=== PATIENT | female | born 1955 | race Caucasian/White ===

== ENCOUNTER 2020-08-12 08:47 | Outpatient (REF) | payer MEDICARE, SELFPAY ==
[2020-08-12 10:26] LABS: Glucose Urine UA NEG (NEG); Leukocyte Esterase Urine NEG (NEG); Nitrite Urine NEG (NEG); Specific Gravity - Urine 1.025 (1.005-1.025); Urine Blood NEG (NEG); Urine Ketones NEG (NEG); Urine Protein NEG (NEG-TRACE)
[2020-08-12 10:27] LABS: Appearance Urine CLEAR; Color Urine YELLOW
== END 2020-08-12 08:48 | disposition home or self-care (01) ==
LOC: HO.LAB 08:47
PROVIDERS: PCP Internal Medicine; Visit Provider Internal Medicine
DX: R30.0 Dysuria (principal)
CPT/HCPCS: 81003; 87086

== ENCOUNTER 2020-08-14 13:34 | Outpatient (REF) | payer MEDICARE, SELFPAY ==
--- NOTE | ~2020-08-14 | XR_ITS ---
EXAMINATION: BILATERAL HIP RADIOGRAPHS CLINICAL INFORMATION: Bilateral hip pain. COMPARISON: None TECHNIQUE: 2 views of each hip. FINDINGS: RIGHT HIP: No fracture identified. No dislocation. Mild right hip degenerative change and joint space narrowing. No suspicious lesions. No significant right SI joint degenerative change. LEFT HIP: No fracture or dislocation identified. Mild left hip degenerative change and joint space narrowing. No suspicious lesions. No significant left SI joint degenerative change. XR/XR hip RT min 2V IMPRESSION: Mild bilateral hip degenerative change. No evidence of fracture or dislocation involving either hip.
--- NOTE | ~2020-08-14 | XR_ITS ---
EXAMINATION: BILATERAL HIP RADIOGRAPHS CLINICAL INFORMATION: Bilateral hip pain. COMPARISON: None TECHNIQUE: 2 views of each hip. FINDINGS: RIGHT HIP: No fracture identified. No dislocation. Mild right hip degenerative change and joint space narrowing. No suspicious lesions. No significant right SI joint degenerative change. LEFT HIP: No fracture or dislocation identified. Mild left hip degenerative change and joint space narrowing. No suspicious lesions. No significant left SI joint degenerative change. XR/XR hip LT min 2V IMPRESSION: Mild bilateral hip degenerative change. No evidence of fracture or dislocation involving either hip.
--- NOTE | ~2020-08-14 | XR_ITS ---
EXAMINATION: XR LUMBOSACRAL SPINE CLINICAL INFORMATION: Low back pain COMPARISON: Lumbar spine MRI on 08/06/2010 TECHNIQUE: Three views of the lumbosacral spine. FINDINGS: Lumbar spine maintains normal alignment. There are intervertebral disc spacers at L4-L5 and L5-S1. Vertebral body heights are maintained. There is multilevel loss of intervertebral disc space with endplate degenerative changes. There is facet arthropathy in the lower lumbar spine. There is mild atherosclerotic calcification. XR/XR lumbar spine 2-3V IMPRESSION: Appropriately positioned lower lumbar spinal hardware. Mild/moderate degenerative disease of lower lumbar spine.
[2020-08-14 16:32] LABS: MANUAL DIFF FLAG NO
[2020-08-14 16:39] LABS: Basophils Percent Auto 0.5 % (0-2); Eosinophils Absolute Auto 0.1 X10*3/uL (0.0-0.4); Eosinophils Percent Auto 1.4 % (0-4); Hematocrit 37.4 % (37-47); Hemoglobin 11.7 g/dl (12.0-16.0); Imm Gran Abs Auto 0.01 X10*3/uL (0.00-0.03); Imm Gran Pct Auto 0.2 % (0.0-0.4); Lymphocytes Absolute Auto 2.7 X10*3/uL (1.2-4.9); Lymphocytes Percent Auto 42.7 % (20-40); Mean Corpuscular HGB Conc 31.3 g/dl (31.0-35.0); Mean Corpuscular Hemoglobin 26.4 pg (27.0-33.0); Mean Corpuscular Volume 84.2 fL (80-98); Monocytes Absolute Auto 0.7 X10*3/uL (0.1-1.2); Monocytes Percent Auto 11.2 % (2-11); Neutrophils Absolute Auto 2.8 X10*3/uL (2.0-8.3); Platelet Count 102 X10*3/uL (160-400); Red Blood Count 4.44 X10*6/uL (4.20-5.50); Red Cell Distribution Width 14.4 % (11.0-16.0); White Blood Count 6.4 X10*3/uL (4.8-10.8)
[2020-08-14 17:05] LABS: Alanine Aminotransferase 35 U/L (0-31); Albumin Level 4.3 g/dL (3.5-5.0); Alkaline Phosphatase 56 U/L (39-117); Anion Gap 12 (12-20); Aspartate Amino Transferase 74 U/L (5-31); Bilirubin Total 0.6 mg/dL (0.0-1.0); Blood Urea Nitrogen 14 mg/dL (9-16); C Reactive Protein 0.29 mg/dL (< or = 0.50); Calcium 9.6 mg/dL (8.4-10.2); Carbon Dioxide 27 mmol/L (22-29); Chloride 107 mmol/L (96-108); Estimated Glomerular Filt Rate > 60; Glucose Random 81 mg/dL (60-115); Potassium 4.5 mmol/L (3.3-5.1); Sodium 141 mmol/L (135-145); Total Protein 7.4 g/dL (6.5-8.0)
[2020-08-14 17:27] LABS: Thyroid Stimulating Hormone 2.71 uIU/mL (0.32-4.0)
[2020-08-14 18:03] LABS: Erythrocyte Sedimentation Rate 11 MM/HR (0-20)
== END 2020-08-14 13:35 | disposition home or self-care (01) ==
LOC: HO.HMGCX 13:34
PROVIDERS: PCP Internal Medicine; Visit Provider Internal Medicine
DX: K76.0 Fatty (change of) liver, not elsewhere classified (principal)
CPT/HCPCS: 36415; 72100; 73502; 80053; 84443; 85025; 85652; 86140

== ENCOUNTER 2021-08-10 08:08 | Outpatient (REF) | payer MEDICARE, SELFPAY ==
[2021-08-10 09:01] LABS: MANUAL DIFF FLAG NO
[2021-08-10 09:10] LABS: Basophils Percent Auto 0.5 % (0-2); Eosinophils Absolute Auto 0.1 X10*3/uL (0.0-0.4); Eosinophils Percent Auto 1.7 % (0-4); Hematocrit 36.7 % (37.0-47.0); Hemoglobin 11.4 g/dl (12.0-16.0); Lymphocytes Absolute Auto 1.4 X10*3/uL (1.2-4.9); Lymphocytes Percent Auto 34.3 % (20-40); Mean Corpuscular HGB Conc 31.1 g/dl (31.0-35.0); Mean Corpuscular Hemoglobin 25.7 pg (27.0-33.0); Mean Corpuscular Volume 82.7 fL (80.0-98.0); Mean Platelet Volume 9.5 fL (9.4-12.3); Monocytes Absolute Auto 0.4 X10*3/uL (0.1-1.2); Monocytes Percent Auto 10.9 % (2-11); Neutrophils Absolute Auto 2.1 x10*3/uL (2.0-8.3); Neutrophils Percent Auto 52.6 % (45-73); Red Blood Count 4.44 X10*6/uL (4.20-5.50); Red Cell Distribution Width 20.5 % (11.0-16.0); White Blood Count 4.1 X10*3/uL (4.8-10.8)
[2021-08-10 09:11] LABS: Ammonia 49 umol/L (13-55)
[2021-08-10 09:17] LABS: Estimated Average Glucose 134 mg/dL; Hemoglobin A1c % 6.3 %
[2021-08-10 09:29] LABS: Platelet Count 74 X10*3/uL (160-400)
[2021-08-10 09:37] LABS: Alanine Aminotransferase 39 U/L (0-31); Alkaline Phosphatase 56 U/L (39-117); Anion Gap 12 (12-20); Aspartate Amino Transferase 54 U/L (5-31); Bilirubin Total 0.5 mg/dL (0.0-1.0); Blood Urea Nitrogen 14 mg/dL (9-16); Calcium 9.4 mg/dL (8.4-10.2); Carbon Dioxide 26 mmol/L (22-29); Chloride 109 mmol/L (96-108); Cholesterol 123 mg/dL; Estimated Glomerular Filt Rate > 60; Glucose Fasting 138 mg/dL (60-99); HDL Cholesterol 46 mg/dL; LDL Cholesterol Calculated 57 mg/dl; Potassium 4.3 mmol/L (3.3-5.1); Sodium 143 mmol/L (135-145); Triglycerides 102 mg/dL
[2021-08-10 10:01] LABS: Vitamin D 25-OH Total 25.8 ng/mL (>30)
[2021-08-10 10:09] LABS: Appearance Urine CLEAR; Color Urine YELLOW; Glucose Urine UA NEG (NEG); Leukocyte Esterase Urine NEG (NEG); Nitrite Urine NEG (NEG); PH 5.5 (5.0-8.0); Specific Gravity - Urine >= 1.030 (1.005-1.025); Urine Blood NEG (NEG); Urine Ketones 5 MG/DL (NEG); Urine Protein NEG (NEG-TRACE)
[2021-08-10 10:36] LABS: Creatinine Urine 192.28 mg/dL; Microalbum/Creatinine Ratio Ur 5.2 ug/mg cr
[2021-08-10 10:43] LABS: RBC Urine 0 /HPF (0); Squamous Epithelial Cell Urine 3+ /LPF; WBC Urine 0-2 /HPF (0-4)
== END 2021-08-10 08:09 | disposition home or self-care (01) ==
LOC: HO.HMGCLDS 08:08
PROVIDERS: Visit Provider Internal Medicine
DX: K76.0 Fatty (change of) liver, not elsewhere classified (principal); D69.6 Thrombocytopenia, unspecified; G25.81 Restless legs syndrome; E78.00 Pure hypercholesterolemia, unspecified; F41.9 Anxiety disorder, unspecified; M54.41 Lumbago with sciatica, right side
CPT/HCPCS: 36415; 80053; 80061; 81001; 82043; 82140; 82306; 83036; 84443; 85025

== ENCOUNTER → 2021-09-05 14:40 | Outpatient (BNVA) | payer MEDICARE, SELFPAY | PROVIDERS: PCP Internal Medicine; Visit Provider Internal Medicine | DX: R40.0 Somnolence (principal); G47.33 Obstructive sleep apnea (adult) (pediatric) | CPT/HCPCS: 99202 ==

== ENCOUNTER 2021-10-24 15:56 | Outpatient (REF) | payer MEDICARE, SELFPAY ==
[2021-10-24 16:48] LABS: Eosinophils Absolute Auto 0.1 X10*3/uL (0.0-0.4); Imm Gran Abs Auto 0.01 X10*3/uL (0.00-0.03); Imm Gran Pct Auto 0.2 % (0.0-0.4); PLT CLUMP 1; Red Cell Distribution Width 13.7 % (11.0-16.0); SCAN SMEAR FLAG 1
[2021-10-24 16:50] LABS: Basophils Percent Auto 0.6 % (0-2); Eosinophils Percent Auto 2.1 % (0-4); Hemoglobin 13.6 g/dl (12.0-16.0); Lymphocytes Absolute Auto 1.7 X10*3/uL (1.2-4.9); Mean Corpuscular Hemoglobin 29.8 pg (27.0-33.0); Mean Corpuscular Volume 87.5 fL (80.0-98.0); Mean Platelet Volume 9.8 fL (9.4-12.3); Monocytes Absolute Auto 0.7 X10*3/uL (0.1-1.2); Monocytes Percent Auto 14.9 % (2-11); Neutrophils Absolute Auto 2.2 x10*3/uL (2.0-8.3); Neutrophils Percent Auto 46.2 % (45-73); Red Blood Count 4.57 X10*6/uL (4.20-5.50)
[2021-10-24 16:51] LABS: Platelet Count 100 X10*3/uL (160-400); White Blood Count 4.8 X10*3/uL (4.8-10.8)
[2021-10-24 16:52] LABS: MANUAL DIFF FLAG NO
[2021-10-24 16:56] LABS: INTERNATIONAL NORM RATIO 1.1 (0.9-1.1); Prothrombin Time 12.5 SEC (10.0-13.1)
[2021-10-24 17:18] LABS: Alanine Aminotransferase 32 U/L (0-31); Albumin Level 3.9 g/dL (3.5-5.0); Alkaline Phosphatase 68 U/L (39-117); Aspartate Amino Transferase 41 U/L (5-31); Bilirubin Direct 0.3 mg/dL (0.0-0.5); Bilirubin Total 0.8 mg/dL (0.0-1.0); C Reactive Protein 0.31 mg/dL (< or = 0.50); Total Protein 6.7 g/dL (6.5-8.0)
[2021-10-24 17:31] LABS: Erythrocyte Sedimentation Rate 7 MM/HR (0-20)
[2021-10-26 15:02] LABS: Immunoglobulin A 334 mg/dL (70-320)
[2021-10-31 15:42] LABS: Endomysial IgA Antibody Negative (Negative)
[2021-11-01 05:11] LABS: Gliadin Deamidated IgG Ab 26.6 U/mL; Transglutaminase Ab IgG <1.0 U/mL; Transglutaminase IgA <1.0 U/mL
== END 2021-10-24 15:57 | disposition home or self-care (01) ==
LOC: HO.LAB 15:56
PROVIDERS: PCP Internal Medicine; Visit Provider Internal Medicine
DX: R10.84 Generalized abdominal pain (principal); R10.9 Unspecified abdominal pain
CPT/HCPCS: 36415; 80076; 82784; 85025; 85610; 85652; 86140; 86231; 86258; 86364

== ENCOUNTER 2021-11-02 15:59 | Outpatient (REF) | payer MEDICARE, SELFPAY ==
[2021-11-02 17:23] LABS: CDiff Gene PCR NEGATIVE (Negative)
[2021-11-02 18:03] LABS: Leukocytes Stool Qualitative NEGATIVE (NEGATIVE)
[2021-11-03 09:44] LABS: Campylobacter Not Detected (Not Detect.); E. coli EAEC Not Detected (Not Detect.); E. coli EPEC Not Detected (Not Detect.); E. coli ETEC Not Detected (Not Detect.); E. coli STEC Not Detected (Not Detect.); Plesiomonas shigelloides Not Detected (Not Detect.); Salmonella Not Detected (Not Detect.); Vibrio Not Detected (Not Detect.); Vibrio Cholerae Not Detected (Not Detect.); Yersinia enterocolitica Not Detected (Not Detect.)
[2021-11-03 09:45] LABS: Adenovirus F 40/41 Not Detected (Not Detect.); Astrovirus Not Detected (Not Detect.); Cryptosporidium Not Detected (Not Detect.); Cyclospora cayetanensis Not Detected (Not Detect.); Entamoeba histolytica Not Detected (Not Detect.); Giardia lamblia Not Detected (Not Detect.); Norovirus GI/GII Not Detected (Not Detect.); Rotavirus A Not Detected (Not Detect.); Sapovirus Not Detected (Not Detect.); Shigella sp./EIEC Not Detected (Not Detect.)
[2021-11-09 01:16] LABS: Calprotectin, Fecal 51 mcg/g
== END 2021-11-02 16:00 | disposition home or self-care (01) ==
LOC: HO.LNP 15:59
PROVIDERS: Visit Provider Internal Medicine
DX: R10.84 Generalized abdominal pain (principal); R19.7 Diarrhea, unspecified
CPT/HCPCS: 83993; 87493; 87507; 89055

== ENCOUNTER 2021-11-20 06:44 | Day surgery (SDC) | payer MEDICARE, SELFPAY ==
[2021-11-15 09:50] VITALS: BMI 27.4
--- NOTE | 2021-11-19 09:18 | HO.ANESPROP2 ---
Documented by User: Elizabeth Osman NP 11/19/21 09:22 HPI - Anesthesia Eval Consult details Narrative: 66yo F for Upper Endoscopy and Colonoscopy cirrhosis r/t KAUFFMAN, well compensated - follows [facility] transplant services [facility] Active Problems Active Problems: All Active Problems (Updated 11/15/21 @ 10:00 by Sosa Lopez RN) ARBEN (obstructive sleep apnea) (Acute) Somnolence, daytime (Acute) Past Medical History Medical History (Updated 11/15/21 @ 10:00 by Sosa Lopez RN) Anxiety Cirrhosis Diabetes Elevated cholesterol Emphysema of lung KAUFFMAN (nonalcoholic steatohepatitis) ARBEN (obstructive sleep apnea) Renal stones Skin cancer Somnolence, daytime Thrombocytopenia Surgical History Surgical History (Updated 11/15/21 @ 09:49 by Sosa Lopez RN) H/O colonoscopy History of back surgery History of esophagogastroduodenoscopy (EGD) Hx of appendectomy Hx of hysterectomy Social History Social History Patient Tobacco Use Status: Former Tobacco user Quit Date: 1979 Tobacco use type: Cigarette Cigarette Packs Per Day: 1 Cigarettes Per Day: 20.0 Years Smoked: 20 Smoked in Last 30 Days: No Use of substances other than those prescribed or required for medical reasons: No Are you DNR?: No Advance Directives: No Advance Directives Information Provided: Yes Meds Allergies Allergy/AdvReac Type Severity Reaction Status Date / Time penicillin V Allergy Unknown headache Verified 11/20/21 06:48 and vomiting Sulfa (Sulfonamide Allergy Unknown HEADACHE, Verified 11/20/21 06:48 Antibiotics) NAUSEA [SULFA (SULFONAMIDE ANTIBIOTICS)] Home Medications Medication Instructions Recorded Confirmed Last Taken Type metformin 500 mg tablet 1,000 mg PO BID 09/05/21 11/20/21 11/19/21 07:00 History nadolol 20 mg tablet 20 mg PO DAILY 09/05/21 11/20/21 11/20/21 03:30 History omeprazole 20 mg capsule,delayed 20 mg PO DAILY 09/05/21 11/20/21 Unknown History release ropinirole 0.5 mg tablet 1 mg PO BEDTIME 09/05/21 11/20/21 11/19/21 23:30 History sertraline 25 mg tablet 25 mg PO DAILY 09/05/21 11/20/21 11/20/21 03:30 History simvastatin 20 mg tablet 20 mg PO BEDTIME 09/05/21 11/20/21 Unknown History ferrous sulfate 325 mg (65 mg 325 mg PO DAILY 11/15/21 11/20/21 10/21/21 History iron) tablet Exam Exam Date and Time: November 19, 2021 0918 Height,Weight and Vital Signs: Height 5 ft 3 in Weight 70.307 kg Pertinent Lab Results Pertinent Lab Results: Laboratory Tests 08/10/21 10/24/21 09:00 16:23 WBC 4.8 Hgb 13.6 Hct 40.0 Plt Count 100 L D Sodium 143 Potassium 4.3 Chloride 109 H Carbon Dioxide 26 BUN 14 Creatinine 0.74 Laboratory Tests 10/24/21 10/24/21 16:23 16:23 PT 12.5 INR 1.1 Total Bilirubin 0.8 Direct Bilirubin 0.3 AST 41 H ALT 32 H Alkaline Phosphatase 68 D C-Reactive Protein 0.31 Total Protein 6.7 Albumin 3.9 Assessment and Plan Assessment Anesthesia Assessment: Chart Reviewed Documented by User: Stephanie Sherman MD 11/20/21 07:27 [facility] Past Medical History Medical History (Updated 11/15/21 @ 10:00 by Sosa Lopez RN) Anxiety Cirrhosis Diabetes Elevated cholesterol Emphysema of lung KAUFFMAN (nonalcoholic steatohepatitis) ARBEN (obstructive sleep apnea) Renal stones Skin cancer Somnolence, daytime Thrombocytopenia Family History Family history of problems with anesthesia: No Surgical History Surgical History (Updated 11/15/21 @ 09:49 by Sosa Lopez RN) H/O colonoscopy History of back surgery History of esophagogastroduodenoscopy (EGD) Hx of appendectomy Hx of hysterectomy History of Problems with Anesthesia: No Social History Social History Patient Tobacco Use Status: Former Tobacco user Quit Date: 1979 Tobacco use type: Cigarette Cigarette Packs Per Day: 1 Cigarettes Per Day: 20.0 Years Smoked: 20 Smoked in Last 30 Days: No Use of substances other than those prescribed or required for medical reasons: No Are you DNR?: No Advance Directives: No Advance Directives Information Provided: Yes Meds Allergies Allergy/AdvReac Type Severity Reaction Status Date / Time penicillin V Allergy Unknown headache Verified 11/20/21 06:48 and vomiting Sulfa (Sulfonamide Allergy Unknown HEADACHE, Verified 11/20/21 06:48 Antibiotics) NAUSEA [SULFA (SULFONAMIDE ANTIBIOTICS)] Home Medications Medication Instructions Recorded Confirmed Last Taken Type metformin 500 mg tablet 1,000 mg PO BID 09/05/21 11/20/21 11/19/21 07:00 History nadolol 20 mg tablet 20 mg PO DAILY 09/05/21 11/20/21 11/20/21 03:30 History omeprazole 20 mg capsule,delayed 20 mg PO DAILY 09/05/21 11/20/21 Unknown History release ropinirole 0.5 mg tablet 1 mg PO BEDTIME 09/05/21 11/20/21 11/19/21 23:30 History sertraline 25 mg tablet 25 mg PO DAILY 09/05/21 11/20/21 11/20/21 03:30 History simvastatin 20 mg tablet 20 mg PO BEDTIME 09/05/21 11/20/21 Unknown History ferrous sulfate 325 mg (65 mg 325 mg PO DAILY 11/15/21 11/20/21 10/21/21 History iron) tablet Exam Airway Mallampati Class: II TM Dist: >3cm Neck ROM: Full Assessment and Plan Assessment Anesthesia Assessment: Anesthesia Plan Discussed Final Anesthetic Review Family History of Problems with Anesthesia: No History of Problems with Anesthesia: No NPO: Yes ASA Class: III Final Preanesthetic Review: No Changes in Pt Med Stat, Meds/Allgs Chart Reviewed and Consent Obtained/Reviewed Patient Risk: Intermediate Procedure Risk: Low Anesthetic Plan Anesthetic Plan: MAC: Disposition: Standard PACU
[2021-11-20 07:00] VITALS: BP 125/81; PULSE 71; RESP 16; TEMP 36.6; O2SAT 98; BMI 28.3
--- NOTE | 2021-11-20 07:00 | PC.NURSE ---
Patient stated she only finished 50% of her prep due to nausea. Per her Output is clear and watery . Dr. Irwin made aware. No new orders, no need to administer enema.
[2021-11-20 07:14] LABS: Glucose, Whole Blood 144 mg/dL (60-115)
[2021-11-20] MEDS: Lactated Ringers 1,000 ML 100 ML IVCONT (07:18)
[2021-11-20 08:30] VITALS: BP 106/61; PULSE 75; RESP 16; TEMP 36.8; O2SAT 96
--- NOTE | 2021-11-20 08:38 | P.BOP_ITS ---
Brief Operative Note Date of Service: 11/20/21 Pre-op diagnosis: Diarrhea Post-op diagnosis: other (R/o Celiac disease, Portal HTN, R/O microscopic colitis) Procedure: EGD with biopsies, Colonoscopy to the cecum and TI with biopsies Surgeon: Andre Irwin Anesthesia: MAC Was an Stem Processing Machine Operator used for this Procedure?: No Estimated blood loss (mL): 3.0 Pathology: other (A. Descending duodenum B. Gastric antrum C. Terminal ileum D. Ascending colon E. Descending colon) Condition: stable Disposition: PACU
[2021-11-20 08:45] VITALS: BP 124/48; PULSE 72; RESP 16; O2SAT 96
[2021-11-20 09:00] VITALS: BP 131/77; PULSE 61; RESP 16; TEMP 36.8; O2SAT 99
--- NOTE | 2021-11-20 10:41 | OP_ITS ---
SURGEON: Andre Irwin MD INDICATIONS: The patient presents for evaluation of elevated celiac disease labs and persistent diarrhea. Full consent has been obtained from her for this, including risks of bleeding and perforation. PREOPERATIVE DIAGNOSIS: POSTOPERATIVE DIAGNOSIS: PROCEDURE PERFORMED: Esophagogastroduodenoscopy with biopsies, and colonoscopy to cecum and terminal ileum with biopsies. ESTIMATED BLOOD LOSS: COMPLICATIONS: ANESTHESIA: Monitored anesthesia care. ASSISTANTS: SPECIMENS: PREOPERATIVE DIAGNOSES: Elevated celiac disease labs and persistent diarrhea. POSTOPERATIVE DIAGNOSES: Elevated celiac disease labs and persistent diarrhea, esophageal varices, portal gastropathy, rule out celiac disease, rule out microscopic colitis, diverticulosis, and internal hemorrhoids. DESCRIPTION OF PROCEDURE: The patient was placed in the left lateral decubitus position. The Olympus video gastroscope was passed in the posterior oropharynx and upper esophagus under direct vision. The scope was passed slowly into the distal esophagus. The gastroesophageal junction appeared at 35 cm. The distal esophagus was notable for some scarring and some minimal evidence of varices, which just about completely disappeared with insufflation of air. There was no sign of any bleeding nor esophagitis. The submucosa did appear purplish. The scope entered into the stomach. There was a small hiatal hernia. The scope was advanced to the pylorus, and the duodenum was cannulated to the descending portion. The duodenum including the bulb appeared normal without mass or ulceration. Biopsies were obtained from the 2nd and 3rd portions of duodenum. The scope was withdrawn back to the stomach. The gastric antrum and body had some congested appearance consistent with probable component of gastropathy, but no erosions or ulceration. There was good peristalsis. Biopsies were obtained. The scope was retroflexed visualizing the proximal stomach carefully, which also had changes consistent with a gastropathy, but no evidence of any varices, mass, nor ulceration. The scope was straightened and withdrawn back to the esophagus. Again, were changes of the portal hypertension with some scarring from previous banding but no significant varices. There was no esophagitis. The scope was withdrawn from the patient. She was turned around for the colonoscopy. The digital rectal exam revealed no abnormalities. The Olympus video pediatric colonoscope was entered into the rectum advanced easily to the cecum. Once in the cecum, I did identify a cecal pouch with appendiceal orifice and a normal-appearing ileocecal valve. The terminal ileum was cannulated and appeared normal. Biopsies were obtained. The scope was withdrawn back in the colon. The cecal mucosa appeared quite congested most likely from the underlying portal hypertension. There was almost a cobblestoning appearance. The scope was then slowly withdrawn assessing all mucosal surfaces carefully. Preparation was excellent. The ascending colon had similar mucosal changes as seen in the cecum. Biopsies were obtained to rule out microscopic colitis. The transverse colon and descending colon appeared normal. The sigmoid colon did appear somewhat congested as well. Biopsies were obtained in the descending colon as well. I did not visualize any sign of polyps, angiodysplasias, nor any definitive colitis. There was a mild amount of sigmoid diverticulosis. In the rectum, the scope was retroflexed visualizing small internal hemorrhoids, but no other pathology. The rectal mucosa appeared normal. The scope was straightened and withdrawn from the patient. She tolerated both procedures well and was returned to the recovery area in stable condition. IMPRESSION: 1. Rule out celiac disease. 2. Portal gastropathy. 3. Hiatal hernia. 4. Minimal changes of esophageal varices. 5. Rule out microscopic colitis. 6. Edematous appearance to portions of the colon, probably from portal hypertension. PLAN: The results of the biopsies will be checked. She has been advised to continue Imodium on a p.r.n. basis and to continue to speak with her primary care physician in [place] about possibly switching from metformin to a different diabetic medication to see if that would help with her diarrhea as well. She will be seen in the spring when she returns from [place]. This has been discussed with her . She was advised to avoid all aspirin and NSAIDs long-term. She was advised to continue her omeprazole and nadolol. MD HEIDI Pantoja/HOWARD / [id number]
== END 2021-11-20 09:54 | disposition home or self-care (01) ==
PROVIDERS: PCP Internal Medicine; Visit Provider Internal Medicine
PROC: (CPT 45380; principal; 2021-11-20 07:30)
DX: R19.7 Diarrhea, unspecified (principal); R10.84 Generalized abdominal pain; K64.8 Other hemorrhoids; K57.30 Diverticulosis of large intestine without perforation or abscess without bleeding; R74.8 Abnormal levels of other serum enzymes; R89.4 Abnormal immunological findings in specimens from other organs, systems and tissues; K74.69 Other cirrhosis of liver; K29.50 Unspecified chronic gastritis without bleeding; I85.00 Esophageal varices without bleeding; K75.81 Nonalcoholic steatohepatitis (NASH); K44.9 Diaphragmatic hernia without obstruction or gangrene; K21.9 Gastro-esophageal reflux disease without esophagitis; K76.6 Portal hypertension; E78.5 Hyperlipidemia, unspecified; J43.9 Emphysema, unspecified; D69.6 Thrombocytopenia, unspecified; F41.1 Generalized anxiety disorder; Z79.84 Long term (current) use of oral hypoglycemic drugs; Z79.899 Other long term (current) drug therapy; Z88.0 Allergy status to penicillin; Z88.2 Allergy status to sulfonamides; Z85.828 Personal history of other malignant neoplasm of skin; Z87.442 Personal history of urinary calculi; Z87.891 Personal history of nicotine dependence
CPT/HCPCS: 45380; 43239; 82947; 88305; 88342; J2250

== ENCOUNTER 2022-02-12 10:28 | Outpatient (REF) | payer MEDICARE, SELFPAY ==
[2022-02-12 11:27] LABS: Hematocrit 45.9 % (37.0-47.0); Hemoglobin 15.4 g/dl (12.0-16.0); Mean Corpuscular HGB Conc 33.6 g/dl (31.0-35.0); Mean Corpuscular Hemoglobin 28.6 pg (27.0-33.0); Mean Corpuscular Volume 85.2 fL (80.0-98.0); Mean Platelet Volume 10.8 fL (9.4-12.3); Platelet Count 82 X10*3/uL (160-400); Red Blood Count 5.39 X10*6/uL (4.20-5.50); Red Cell Distribution Width 13.4 % (11.0-16.0); White Blood Count 16.8 X10*3/uL (4.8-10.8)
[2022-02-12 11:53] LABS: Alanine Aminotransferase 66 U/L (0-31); Albumin Level 3.5 g/dL (3.5-5.0); Alkaline Phosphatase 73 U/L (39-117); Anion Gap 11 (12-20); Aspartate Amino Transferase 40 U/L (5-31); Bilirubin Direct 0.5 mg/dL (0.0-0.5); Bilirubin Total 1.6 mg/dL (0.0-1.0); Blood Urea Nitrogen 20 mg/dL (9-16); Calcium 8.7 mg/dL (8.4-10.2); Carbon Dioxide 30 mmol/L (22-29); Chloride 98 mmol/L (96-108); Estimated Glomerular Filt Rate > 60; Glucose Random 247 mg/dL (60-115); Potassium 3.7 mmol/L (3.3-5.1); Sodium 135 mmol/L (135-145); Total Protein 6.4 g/dL (6.5-8.0)
[2022-02-12 12:02] LABS: Erythrocyte Sedimentation Rate 4 MM/HR (0-20)
== END 2022-02-12 10:29 | disposition home or self-care (01) ==
LOC: HO.HMGCLDS 10:28
PROVIDERS: PCP Internal Medicine; Visit Provider Internal Medicine
DX: K74.60 Unspecified cirrhosis of liver (principal)
CPT/HCPCS: 36415; 80048; 80076; 85027; 85652

== ENCOUNTER 2022-08-13 09:17 | Outpatient (REF) | payer MEDICARE, SELFPAY ==
[2022-08-13 11:29] LABS: MANUAL DIFF FLAG NO
[2022-08-13 11:35] LABS: Appearance Urine Clear; Color Urine Yellow; Glucose Urine UA >=1000 mg/dL (Negative); Leukocyte Esterase Urine Negative (Negative); Nitrite Urine Negative (Negative); PH 5.5 (5.0-9.0); Specific Gravity - Urine >= 1.030 (1.005-1.025); UMIC TRIGGER UA YES; Urine Blood Negative (Negative); Urine Ketones Negative (Negative); Urine Protein Negative (Neg-Trace)
[2022-08-13 11:40] LABS: Bacteria Urine None Seen (None Seen); Hyaline Casts Urine 0-2 /LPF (0-2); RBC Urine 0-2 /HPF (0-2); WBC Urine 0-5 /HPF (0-5)
[2022-08-13 11:41] LABS: Estimated Average Glucose 306 mg/dL; Hemoglobin A1c % 12.3 %
[2022-08-13 11:47] LABS: Basophils Percent Auto 0.3 % (0-2); Eosinophils Absolute Auto 0.1 X10*3/uL (0.0-0.4); Eosinophils Percent Auto 2.4 % (0-4); Hematocrit 30.3 % (37.0-47.0); Hemoglobin 8.8 g/dl (12.0-16.0); Lymphocytes Absolute Auto 1.3 X10*3/uL (1.2-4.9); Lymphocytes Percent Auto 34.4 % (20-40); Mean Corpuscular Hemoglobin 19.6 pg (27.0-33.0); Mean Corpuscular Volume 67.5 fL (80.0-98.0); Mean Platelet Volume 9.9 fL (9.4-12.3); Monocytes Absolute Auto 0.4 X10*3/uL (0.1-1.2); Neutrophils Absolute Auto 1.9 x10*3/uL (2.0-8.3); Neutrophils Percent Auto 51.9 % (45-73); Red Blood Count 4.49 X10*6/uL (4.20-5.50); Red Cell Distribution Width 15.8 % (11.0-16.0)
[2022-08-13 11:49] LABS: Platelet Count 92 X10*3/uL (160-400); White Blood Count 3.7 X10*3/uL (4.8-10.8)
[2022-08-13 12:25] LABS: Alanine Aminotransferase 25 U/L (0-31); Alkaline Phosphatase 73 U/L (39-117); Anion Gap 14 (12-20); Aspartate Amino Transferase 26 U/L (5-31); Bilirubin Total 0.6 mg/dL (0.0-1.0); Blood Urea Nitrogen 12 mg/dL (9-16); Calcium 9.8 mg/dL (8.4-10.2); Carbon Dioxide 25 mmol/L (22-29); Chloride 103 mmol/L (96-108); Cholesterol 142 mg/dL; Estimated Glomerular Filt Rate > 60; Glucose Fasting 330 mg/dL (60-99); HDL Cholesterol 49 mg/dL; LDL Cholesterol Calculated 76 mg/dl; Potassium 4.1 mmol/L (3.3-5.1); Sodium 138 mmol/L (135-145); Total Protein 6.8 g/dL (6.5-8.0); Triglycerides 89 mg/dL
[2022-08-13 12:28] LABS: Thyroid Stimulating Hormone 2.25 uIU/mL (0.32-4.0); Vitamin D 25-OH Total 25.2 ng/mL (>30)
[2022-08-13 12:45] LABS: Creatinine Urine 86.91 mg/dL; Microalbumin Urine < 5.0 mg/L
== END 2022-08-13 09:18 | disposition home or self-care (01) ==
LOC: HO.HMGCLDS 09:17
PROVIDERS: PCP Internal Medicine; Visit Provider Internal Medicine
DX: Z13.89 Encounter for screening for other disorder (principal)
CPT/HCPCS: 36415; 80053; 80061; 81001; 82043; 82306; 83036; 84443; 85025

== ENCOUNTER 2022-08-13 14:24 | Emergency (ER) | payer MEDICARE, SELFPAY ==
--- NOTE | ~2022-08-13 | CT_ITS ---
EXAMINATION: CTA CHEST PE STUDY, CT ABDOMEN AND PELVIS CLINICAL INFORMATION: SOB, palpitations, hx clot COMPARISON: 08/14/2010 CT scan TECHNIQUE: Prior to contrast administration, noncontrast localization images were obtained. After the administration of 65 mL of Omnipaque nonionic IV contrast, contiguous thin slice helical images were obtained through the thorax. Following this the examination was continued through the abdomen and then pelvis. Reformatted MIP images in the coronal and sagittal planes as well as thin slice reformatted images of coronal and sagittal planes were obtained at the acquisition workstation. This CT examination was performed using dose optimization techniques as appropriate, variously including the following: *Automated exposure control *Adjustment of mA and/or kV according to patient size (this includes techniques or standardized protocols for targeted exams where dose is matched to indication/reason for exam; i.e. extremities or head) *Use of iterative reconstruction technique DLP: 738 mGy-cm. FINDINGS: CHEST: The bolus timing on this study was acceptable for visualization of the pulmonary arterial tree. There are no intraluminal pulmonary arterial filling defects present to suggest pulmonary embolism. Calcified granuloma in the posterior left lower lobe incidentally noted. Minimal dependent atelectasis. No abnormal pulmonary nodules or masses are appreciated. No significant hilar or mediastinal adenopathy. There is no evidence of pleural effusion or pneumothorax. The heart is normal in size. No evidence of ventricular septal bowing or right heart strain. The vascular calcification in aorta. Small hiatal hernia. There is no pericardial effusion or pericardial thickening. ABDOMEN/PELVIS: Liver, Gallbladder and Biliary Tree: Slight nodular contour to the liver suggesting underlying diffuse hepatocellular disease. There are subcentimeter hypoattenuations seen more so in the right lobe of the liver too small to characterize further on the CT scan. No biliary ductal dilatation. The gallbladder is distended. Nonspecific pericholecystic fluid is seen no radiopaque gallstones Pancreas: Unremarkable. Spleen: Enlarged measuring 13.5 cm in length Adrenal Glands: Unremarkable. Kidneys and Ureters: The kidneys are normal in size, shape, and attenuation. No hydronephrosis, hydroureter, or calculi seen. No perinephric stranding. Bladder: Decompressed Gastrointestinal Tract: Scattered colonic diverticulosis but no colonic wall thickening or pericolonic inflammatory change to suggest diverticulitis. Visualized small bowel grossly unremarkable. Nonspecific stranding and edema within the right lower quadrant mesentery of uncertain etiology. Abdominal Wall: No significant hernia is appreciated. Lymphovascular Structures: Vascular calcification within the aorta iliac system. There is mild stranding to the celiac axis fat of uncertain etiology or significance. Small celiac nodes are seen but no bulky adenopathy Pelvic Viscera: Presumably surgically absent Osseous Structures: Multilevel degenerative changes in the spine. Postoperative changes in the lower lumbar spine as well CT/CT abdomen pelvis w IV con IMPRESSION: 1. No evidence for pulmonary emboli. No focal airspace disease. 2. Nodular contour to the liver suggesting underlying diffuse hepatocellular disease. There are a few subcentimeter hypoattenuations seen in the right lobe of the liver too small to characterize further on the CT scan. Correlation with nonemergent dynamic liver MRI would be recommended in this setting 3. There is nonspecific stranding to the celiac axis fat of uncertain etiology or significance. There are small celiac axis nodes but no bulky adenopathy. Clinical correlation will be needed. 4. The gallbladder is distended with nonspecific pericholecystic fluid. No radiopaque gallstones are seen. VTE: Negative
--- NOTE | 2022-08-13 14:56 | ED.GENADULT ---
HPI - General Adult General Chief complaint: General Medical Stated complaint: Sent By PCP Issues w/Sugar Time Seen by Provider: 08/13/22 18:29 Source: patient and family Mode of arrival: ambulatory History of Present Illness HPI narrative: 67-year-old female with history of diabetes and liver cirrhosis secondary to KAUFFMAN and denies ever any alcohol use, currently followed at [facility] in [place], not currently on anticoagulation but reports that she has had a recent stent on anticoagulation for a clot in her liver. All records are at [facility] and patient has been unable to access any of the findings. Patient also states that she had a bout of cholecystitis while down in [facility] emergency room a in March and at that time she was treated in a conservative manner and as per the patient her doctors at [facility] caution against any surgical intervention. Patient reports chronic nausea as well as chronic abdominal discomfort but also reports some chest heaviness and states that she has been having ongoing dark stool for approximately 1 week and has started iron supplementation within the past week but otherwise has been eating and drinking, denies any vomiting and denies any diarrhea. She did also recently complete a course of antibiotics for a urinary tract infection. Patient reports she has been experiencing fatigue, shortness of breath, palpitations. Related Data Home Medications Medication Instructions Recorded Confirmed ascorbic acid (vitamin C) 500 mg 500 mg PO DAILY 08/13/22 08/13/22 tablet (Vitamin C) estradiol 0.01% (0.1 mg/gram) 1 appl vaginal BEDTIME 08/13/22 08/13/22 vaginal cream ferrous sulfate 324 mg (65 mg 324 mg PO DAILY 08/13/22 08/13/22 iron) tablet,delayed release furosemide 20 mg tablet 20 mg PO DAILY 08/13/22 08/13/22 hydroxyzine HCl 25 mg tablet 25 mg PO BEDTIME 08/13/22 08/13/22 metformin 500 mg tablet,extended 500 mg PO BID 08/13/22 08/13/22 release 24 hr nadolol 20 mg tablet 20 mg PO BEDTIME 08/13/22 08/13/22 omeprazole 40 mg capsule,delayed 40 mg PO DAILY@0630 08/13/22 08/13/22 release ropinirole 1 mg tablet 2 mg PO BEDTIME 08/13/22 08/13/22 sertraline 25 mg tablet 25 mg PO BEDTIME 08/13/22 08/13/22 simvastatin 20 mg tablet 20 mg PO BEDTIME 08/13/22 08/13/22 spironolactone 50 mg tablet 50 mg PO DAILY 08/13/22 08/13/22 trazodone 50 mg tablet 50 mg PO BEDTIME 08/13/22 08/13/22 vitamin A 3,000 mcg (10,000 unit) 3,000 mcg PO DAILY 08/13/22 08/13/22 capsule Allergies Allergy/AdvReac Type Severity Reaction Status Date / Time penicillin V Allergy Unknown headache Verified 08/13/22 14:57 and vomiting Sulfa (Sulfonamide Allergy Unknown HEADACHE, Verified 08/13/22 14:57 Antibiotics) NAUSEA [SULFA (SULFONAMIDE ANTIBIOTICS)] Review of Systems Review of Systems: Pertinent positives and negatives as stated in HPI COUNTS INCLUDE 234 BEDS AT THE [facility] Past Medical History Source: nursing notes reviewed Medical History Anxiety Cirrhosis Diabetes Elevated cholesterol Emphysema of lung KAUFFMAN (nonalcoholic steatohepatitis) ARBEN (obstructive sleep apnea) Renal stones Skin cancer Somnolence, daytime Thrombocytopenia Surgical History H/O colonoscopy History of back surgery History of esophagogastroduodenoscopy (EGD) Hx of appendectomy Hx of hysterectomy Social History Social History Alcohol intake: never Patient Tobacco Use Status: Former Tobacco user Quit Date: 1979 Tobacco use type: Cigarette Cigarette Packs Per Day: 1 Cigarettes Per Day: 20.0 Years Smoked: 20 Smoked in Last 30 Days: No Use of substances other than those prescribed or required for medical reasons: No Advance Directives: No Advance Directives Information Provided: Yes Physical Exam ED Vital Signs: Vital Signs - 24 hr 08/13/22 14:57 08/13/22 18:07 08/13/22 18:44 Temperature 96.5 F L 96.8 F Pulse Rate 66 67 68 Respiratory Rate 19 18 14 Blood Pressure 136/56 L 127/64 136/74 Pulse Oximetry 98 97 100 Oxygen Delivery Method Room Air Room Air Room Air BMI result Body Mass Index 27.5 VITAL SIGNS: Reviewed. GENERAL: Well developed, well nourished, in no acute distress. HEAD: Normocephalic/atraumatic EYES: PERRLA, EOMI EARS: Ext canals without abnormality, TMs non-bulging and non-erythematous NOSE: Nares patent bilateral OROPHARYNX: no oral lesions noted, posterior pharynx clear NECK: Supple, no adenopathy LUNGS: Normal breath sounds. No adventitious sounds or accessory muscle use. SpO2<100> CARDIOVASCULAR: Regular rate and rhythm without noted murmurs, no JVD or lower extremity edema. ABDOMEN: Soft, non-tender, non-distended with bowel sounds. MUSCULOSKELETAL: No tenderness, deformities, or effusions noted on gross inspection. EXTREMITIES: No cyanosis, clubbing or edema. SKIN: Inspection of the skin reveals no rashes NEUROLOGIC: Alert and oriented x 4. Strength and sensation to light touch were grossly intact x 4. Course Course Course Narrative: This is an RME: Additional HPI, ROS, PE not included below will be deferred to primary provider. Patient is a 67-year-old female with history of ARBEN, cirrhosis, DM on metformin presenting with complaint of fatigue, dizziness past few days not worse with standing, shortness of breath. Polydipsia, polyuria for months. Cirrhosis is managed at [facility] in [place], goes there every 6 months for management. Reports two days of dark bowel movements 3-4 days ago. PCP called in expect, decreased H&H 3 points in 3 months, glucose 330, A1c 12 on labs from today. Plan: labs ordered Medications Administered Discontinued Medications Generic Name Dose Route Start Last Admin Trade Name Freq PRN Reason Stop Dose Admin Sodium Chloride 500 mls @ 500 mls/hr 08/13/22 19:00 08/13/22 20:39 Ns IV 08/13/22 19:59 Infused .Q1H ROSALBA Infusion Iohexol 100 ml 08/13/22 20:09 08/13/22 20:09 Iohexol 350 Mg/Ml 100 Ml Infus..Btl IV 08/13/22 20:10 65 ml ONCE ONE Administration Medical Decision Making Medical Decision Making MDM Narrative: 67-year-old female with history and clinical presentation consistent with history suggestive of possible melena, attempted AZUCENA which was successful as there was no stool within the rectal vault, no obvious lesions to the anal rectal area, patient has mild discomfort on palpation of the abdomen, she does not appear jaundiced but I do have some concerns regarding the possibility of recurrence clot either within the chest or the possibility of portal vein. Patient remains hemodynamically stable but on review of investigations she is noted to be hyperglycemic, new anemia but prior labs are from January 2022 and I presume that her lab work from her recent stay in [place] would not appear here similar to January but more consistent with current findings. She denies any use of aspirin or and NSAIDs and once again denies any use of alcohol. I reviewed all investigations to include patient's previous lab work from [facility] in [place], patient is not tachycardic, blood pressure is stable, elevated sugar level has resolved, I reviewed the imaging studies which were negative for acute findings other than some noted nonspecific pericholecystic fluid without leukocytosis/fever/Mahajan's positive. Patient's hemoglobin is stable without evidence of acute bleeding at this time. She is tolerating oral intake and my interpretation is that this patient can be followed up in the outpatient setting and she will pursue consultation with Dr. Irwin whom she has seen previously. She was given strict return precautions and is otherwise discharged. She has no evidence of DKA/HHS and glucose has significantly improved. Differential Diagnosis Please see the discussion above Admission/Observation Consideration of admission/observation: Escalation of care including admission/observation considered If warranted but on re-evaluation no evidence to suggest the need for admission at this time. Lab Data Please see the discussion above 08/13/22 15:35 08/13/22 15:35 Labs: Lab Results 08/13/22 08/13/22 08/13/22 Range/Units 15:35 15:35 15:35 WBC 4.6 L (4.8-10.8) X10*3/uL RBC 4.42 (4.20-5.50) X10*6/uL Hgb 8.7 L (12.0-16.0) g/dl Hct 29.9 L (37.0-47.0) % MCV 67.6 L (80.0-98.0) fL MCH 19.7 L (27.0-33.0) pg MCHC 29.1 L (31.0-35.0) g/dl RDW 15.8 (11.0-16.0) % Plt Count 86 L (160-400) X10*3/uL MPV 9.8 (9.4-12.3) fL Immature Gran % (Auto) 0.2 (0.0-0.4) % Neut % (Auto) 54.2 (45-73) % Lymph % (Auto) 32.5 (20-40) % Hamilton % (Auto) 11.0 (2-11) % Eos % (Auto) 1.7 (0-4) % Baso % (Auto) 0.4 (0-2) % Lymph # (Auto) 1.5 (1.2-4.9) X10*3/uL Hamilton # (Auto) 0.5 (0.1-1.2) X10*3/uL Eos # (Auto) 0.1 (0.0-0.4) X10*3/uL Baso # (Auto) 0.0 (0.0-0.2) X10*3/uL Abs Immat Gran (auto) 0.01 (0.00-0.03) X10*3/uL Absolute Neuts (auto) 2.5 (2.0-8.3) x10*3/uL Absolute Nucleated RBC 0.000 (0.0-0.012) X10*3/uL Nucleated RBC % (auto) 0.0 (0.0-0.2) /100WBC PT 12.2 (10.0-13.1) SEC INR 1.1 (0.9-1.1) D-Dimer High Sensitivty 244 NG/ML Sodium 135 (135-145) mmol/L Potassium 4.9 (3.3-5.1) mmol/L Chloride 100 (96-108) mmol/L Carbon Dioxide 24 (22-29) mmol/L Anion Gap 16 (12-20) BUN 13 (9-16) mg/dL Creatinine 1.03 (0.5-1.4) mg/dL Estim Creat Clear Calc 48.5 Estimated GFR 53 Random Glucose 416 H* (60-115) mg/dL Calcium 9.9 (8.4-10.2) mg/dL Total Bilirubin 0.7 (0.0-1.0) mg/dL AST 30 (5-31) U/L ALT 26 (0-31) U/L Alkaline Phosphatase 72 (39-117) U/L Total Protein 6.9 (6.5-8.0) g/dL Albumin 4.1 (3.5-5.0) g/dL Urine Color Urine Appearance Urine pH (5.0-9.0) Ur Specific Henderson (1.005-1.025) Urine Protein (Neg-Trace) mg/dL Urine Glucose (UA) (Negative) mg/dL Urine Ketones (Negative) mg/dL Urine Blood (Negative) Urine Nitrite (Negative) Ur Leukocyte Esterase (Negative) Blood Type Antibody Screen 08/13/22 08/13/22 Range/Units 15:35 22:00 WBC (4.8-10.8) X10*3/uL RBC (4.20-5.50) X10*6/uL Hgb (12.0-16.0) g/dl Hct (37.0-47.0) % MCV (80.0-98.0) fL MCH (27.0-33.0) pg MCHC (31.0-35.0) g/dl RDW (11.0-16.0) % Plt Count (160-400) X10*3/uL MPV (9.4-12.3) fL Immature Gran % (Auto) (0.0-0.4) % Neut % (Auto) (45-73) % Lymph % (Auto) (20-40) % Hamilton % (Auto) (2-11) % Eos % (Auto) (0-4) % Baso % (Auto) (0-2) % Lymph # (Auto) (1.2-4.9) X10*3/uL Hamilton # (Auto) (0.1-1.2) X10*3/uL Eos # (Auto) (0.0-0.4) X10*3/uL Baso # (Auto) (0.0-0.2) X10*3/uL Abs Immat Gran (auto) (0.00-0.03) X10*3/uL Absolute Neuts (auto) (2.0-8.3) x10*3/uL Absolute Nucleated RBC (0.0-0.012) X10*3/uL Nucleated RBC % (auto) (0.0-0.2) /100WBC PT (10.0-13.1) SEC INR (0.9-1.1) D-Dimer High Sensitivty NG/ML Sodium (135-145) mmol/L Potassium (3.3-5.1) mmol/L Chloride (96-108) mmol/L Carbon Dioxide (22-29) mmol/L Anion Gap (12-20) BUN (9-16) mg/dL Creatinine (0.5-1.4) mg/dL Estim Creat Clear Calc Estimated GFR Random Glucose (60-115) mg/dL Calcium (8.4-10.2) mg/dL Total Bilirubin (0.0-1.0) mg/dL AST (5-31) U/L ALT (0-31) U/L Alkaline Phosphatase (39-117) U/L Total Protein (6.5-8.0) g/dL Albumin (3.5-5.0) g/dL Urine Color Yellow Urine Appearance Clear Urine pH 5.0 (5.0-9.0) Ur Specific Henderson 1.020 (1.005-1.025) Urine Protein Negative (Neg-Trace) mg/dL Urine Glucose (UA) Negative (Negative) mg/dL Urine Ketones Negative (Negative) mg/dL Urine Blood Negative (Negative) Urine Nitrite Negative (Negative) Ur Leukocyte Esterase Negative (Negative) Blood Type O Positive Antibody Screen NEGATIVE Radiology Impression Radiologist Impression: My interpretation is in agreement with radiology's impression. External Record Review External record reviewed: Outpatient record and Prior outpatient labs Chronic Conditions Patient?s care impacted by: Diabetes Discharge Plan Discharge Clinical Impression: Hyperglycemia, Anemia Patient Disposition: Home, Self-Care Instructions: Anemia (ED), Diabetic Hyperglycemia (ED) Additional Instructions: 1. Resume all home medications as prescribed. 2. Please follow-up with your primary care provider as well as calling the office of Dr. Irwin in the morning. Return to the ER for any worsening symptoms. Prescriptions: No Action ropinirole 1 mg tablet 2 mg PO BEDTIME trazodone 50 mg tablet 50 mg PO BEDTIME omeprazole 40 mg capsule,delayed release(DR/EC) 40 mg PO DAILY@0630 nadolol 20 mg tablet 20 mg PO BEDTIME simvastatin 20 mg tablet 20 mg PO BEDTIME sertraline 25 mg tablet 25 mg PO BEDTIME hydroxyzine HCl 25 mg tablet 25 mg PO BEDTIME furosemide 20 mg tablet 20 mg PO DAILY estradiol 0.01 % (0.1 mg/gram) cream 1 appl vaginal BEDTIME metformin 500 mg tablet extended release 24 hr 500 mg PO BID spironolactone 50 mg tablet 50 mg PO DAILY ferrous sulfate 324 mg (65 mg iron) tablet,delayed release (DR/EC) 324 mg PO DAILY vitamin A 3,000 mcg (10,000 unit) Capsule 3,000 mcg PO DAILY ascorbic acid (vitamin C) [Vitamin C] 500 mg Tablet 500 mg PO DAILY Referrals: Andre Jarvis DO [Primary Care Provider] - Andre Irwin [Physician] -
[2022-08-13 14:57] VITALS: BP 136/56; PULSE 66; RESP 19; TEMP 35.8; O2SAT 98; BMI 27.5
--- NOTE | 2022-08-13 15:37 | MHC.EDTECH ---
PATIENT TYPE AND SCREEN AND BLOOD DRAWN AND SENT TO LAB .
[2022-08-13 15:42] LABS: MANUAL DIFF FLAG NO
[2022-08-13 15:53] LABS: Basophils Percent Auto 0.4 % (0-2); Eosinophils Absolute Auto 0.1 X10*3/uL (0.0-0.4); Eosinophils Percent Auto 1.7 % (0-4); Hematocrit 29.9 % (37.0-47.0); Hemoglobin 8.7 g/dl (12.0-16.0); Imm Gran Abs Auto 0.01 X10*3/uL (0.00-0.03); Imm Gran Pct Auto 0.2 % (0.0-0.4); Lymphocytes Absolute Auto 1.5 X10*3/uL (1.2-4.9); Lymphocytes Percent Auto 32.5 % (20-40); Mean Corpuscular HGB Conc 29.1 g/dl (31.0-35.0); Mean Corpuscular Hemoglobin 19.7 pg (27.0-33.0); Mean Corpuscular Volume 67.6 fL (80.0-98.0); Mean Platelet Volume 9.8 fL (9.4-12.3); Monocytes Absolute Auto 0.5 X10*3/uL (0.1-1.2); Neutrophils Absolute Auto 2.5 x10*3/uL (2.0-8.3); Neutrophils Percent Auto 54.2 % (45-73); Red Blood Count 4.42 X10*6/uL (4.20-5.50); Red Cell Distribution Width 15.8 % (11.0-16.0); White Blood Count 4.6 X10*3/uL (4.8-10.8)
[2022-08-13 15:55] LABS: INTERNATIONAL NORM RATIO 1.1 (0.9-1.1); Prothrombin Time 12.2 SEC (10.0-13.1)
[2022-08-13 16:00] LABS: Platelet Count 86 X10*3/uL (160-400)
[2022-08-13 16:42] LABS: Alanine Aminotransferase 26 U/L (0-31); Albumin Level 4.1 g/dL (3.5-5.0); Alkaline Phosphatase 72 U/L (39-117); Anion Gap 16 (12-20); Aspartate Amino Transferase 30 U/L (5-31); Bilirubin Total 0.7 mg/dL (0.0-1.0); Blood Urea Nitrogen 13 mg/dL (9-16); Calcium 9.9 mg/dL (8.4-10.2); Carbon Dioxide 24 mmol/L (22-29); Chloride 100 mmol/L (96-108); Creatinine Clr Calc Pharmacy 48.5; Estimated Glomerular Filt Rate 53; Glucose Random 416 mg/dL (60-115); Potassium 4.9 mmol/L (3.3-5.1); Sodium 135 mmol/L (135-145); Total Protein 6.9 g/dL (6.5-8.0)
[2022-08-13 18:07] VITALS: BP 127/64; PULSE 67; RESP 18; TEMP 36; O2SAT 97
[2022-08-13 18:44] VITALS: BP 136/74; PULSE 68; RESP 14; O2SAT 100
--- NOTE | 2022-08-13 18:45 | PC.NURSE ---
Dr. Flores performed rectal exam w/ this RN at bedside. no stool obtained therefore unable to send guaic
[2022-08-13] MEDS: 0.9 % Sodium Chloride 500 ML IV (19:34)
--- NOTE | 2022-08-13 19:40 | PC.NURSE ---
iv established, NS infusing
[2022-08-13 19:42] LABS: D Dimer High Sensitivity 244 NG/ML
[2022-08-13] MEDS: iohexoL 350 MG/ML 100 ML INFUS..BTL IV (20:09)
--- NOTE | 2022-08-13 20:56 | PHA.MEDREC ---
Pharmacy Consult ? Medication Reconciliation Pharmacy has completed the medication reconciliation. Spoke to patient at bedside, able to name most medications without prompt
[2022-08-13 22:10] LABS: Appearance Urine Clear; Color Urine Yellow; Glucose Urine UA Negative (Negative); Leukocyte Esterase Urine Negative (Negative); Nitrite Urine Negative (Negative); Urine Blood Negative (Negative); Urine Ketones Negative (Negative); Urine Protein Negative (Neg-Trace)
[2022-08-13 22:52] LABS: Glucose, Whole Blood 205 mg/dL (60-115)
== END 2022-08-13 23:05 | disposition home or self-care (01) ==
PROVIDERS: Registered Nurse Emergency; Emergency Provider Student in an Organized Health Care Education/Training Program; PCP Internal Medicine
DX: E11.65 Type 2 diabetes mellitus with hyperglycemia (principal); D64.9 Anemia, unspecified; R10.13 Epigastric pain; R07.89 Other chest pain; R06.02 Shortness of breath; R42 Dizziness and giddiness; Z87.891 Personal history of nicotine dependence; Z79.899 Other long term (current) drug therapy; Z79.84 Long term (current) use of oral hypoglycemic drugs
CPT/HCPCS: 36415; 71275; 74177; 80053; 80061; 81001; 81003; 82043; 82306; 82947; 83036; 84443; 85025; 85379; 85610; 86850; 86900; 86901; 96360; 99284; 99285; Q9967

== ENCOUNTER 2022-08-30 09:50 | Outpatient (REF) | payer MEDICARE, SELFPAY ==
[2022-08-30 13:25] LABS: MANUAL DIFF FLAG NO
[2022-08-30 13:27] LABS: Appearance Urine Cloudy; Color Urine Dark Yellow; Glucose Urine UA 100 mg/dL (Negative); Leukocyte Esterase Urine Trace (Negative); Nitrite Urine Negative (Negative); PH 5.5 (5.0-9.0); Specific Gravity - Urine >= 1.030 (1.005-1.025); UMIC TRIGGER UA YES; Urine Blood Negative (Negative); Urine Ketones Trace mg/dL (Negative); Urine Protein Trace mg/dL (Neg-Trace)
[2022-08-30 13:35] LABS: Basophils Percent Auto 0.4 % (0-2); Eosinophils Absolute Auto 0.1 X10*3/uL (0.0-0.4); Eosinophils Percent Auto 1.4 % (0-4); Hematocrit 30.1 % (37.0-47.0); Hemoglobin 8.8 g/dl (12.0-16.0); Imm Gran Abs Auto 0.01 X10*3/uL (0.00-0.03); Imm Gran Pct Auto 0.2 % (0.0-0.4); Lymphocytes Percent Auto 18.6 % (20-40); Mean Corpuscular HGB Conc 29.2 g/dl (31.0-35.0); Mean Corpuscular Volume 68.4 fL (80.0-98.0); Mean Platelet Volume 10.8 fL (9.4-12.3); Monocytes Absolute Auto 0.5 X10*3/uL (0.1-1.2); Monocytes Percent Auto 9.7 % (2-11); Neutrophils Absolute Auto 3.6 x10*3/uL (2.0-8.3); Neutrophils Percent Auto 69.7 % (45-73); Red Cell Distribution Width 17.2 % (11.0-16.0); White Blood Count 5.2 X10*3/uL (4.8-10.8)
[2022-08-30 13:39] LABS: Platelet Count 80 X10*3/uL (160-400)
[2022-08-30 13:50] LABS: Bacteria Urine None Seen (None Seen); Hyaline Casts Urine 0-2 /LPF (0-2); RBC Urine >20 /HPF (0-2)
[2022-08-30 14:42] LABS: Alanine Aminotransferase 24 U/L (0-31); Alkaline Phosphatase 76 U/L (39-117); Anion Gap 12 (12-20); Aspartate Amino Transferase 26 U/L (5-31); Bilirubin Total 0.4 mg/dL (0.0-1.0); Blood Urea Nitrogen 12 mg/dL (9-16); Calcium 9.3 mg/dL (8.4-10.2); Carbon Dioxide 26 mmol/L (22-29); Chloride 102 mmol/L (96-108); Estimated Glomerular Filt Rate > 60; Glucose Random 331 mg/dL (60-115); Potassium 4.2 mmol/L (3.3-5.1); Sodium 136 mmol/L (135-145); Total Protein 6.7 g/dL (6.5-8.0)
== END 2022-08-30 09:51 | disposition home or self-care (01) ==
LOC: HO.HMGCLDS 09:50
PROVIDERS: PCP Internal Medicine; Visit Provider Internal Medicine
DX: K76.0 Fatty (change of) liver, not elsewhere classified (principal); E11.65 Type 2 diabetes mellitus with hyperglycemia
CPT/HCPCS: 36415; 80053; 81001; 85025

== ENCOUNTER 2022-10-07 09:38 | Outpatient (REF) | payer MEDICARE, SELFPAY ==
[2022-10-07 11:27] LABS: MANUAL DIFF FLAG NO
[2022-10-07 12:26] LABS: Alanine Aminotransferase 33 U/L (0-31); Albumin Level 4.1 g/dL (3.5-5.0); Alkaline Phosphatase 68 U/L (39-117); Anion Gap 13 (12-20); Aspartate Amino Transferase 41 U/L (5-31); Bilirubin Total 0.4 mg/dL (0.0-1.0); Blood Urea Nitrogen 11 mg/dL (9-16); Calcium 9.7 mg/dL (8.4-10.2); Carbon Dioxide 26 mmol/L (22-29); Chloride 103 mmol/L (96-108); Cholesterol 147 mg/dL (<200); Estimated Glomerular Filt Rate 57; Glucose Fasting 285 mg/dL (60-99); HDL Cholesterol 47 mg/dL (>40); Iron 21 mcg/dL (30-160); LDL Cholesterol Calculated 82 mg/dL (<100); Percent Iron Saturation 5 % (15-50); Sodium 138 mmol/L (135-145); Total Iron Binding Capacity 448 mcg/dL (228-428); Total Protein 7.3 g/dL (6.5-8.0); Triglycerides 93 mg/dL (<150); Unsaturated Iron Binding 427 ug/dL
[2022-10-07 12:31] LABS: Basophils Percent Auto 0.8 % (0-2); Eosinophils Absolute Auto 0.2 X10*3/uL (0.0-0.4); Eosinophils Percent Auto 3.9 % (0-4); Hematocrit 32.8 % (37.0-47.0); Hemoglobin 9.7 g/dl (12.0-16.0); Lymphocytes Absolute Auto 1.1 X10*3/uL (1.2-4.9); Lymphocytes Percent Auto 29.3 % (20-40); Mean Corpuscular HGB Conc 29.6 g/dl (31.0-35.0); Mean Corpuscular Hemoglobin 20.4 pg (27.0-33.0); Mean Corpuscular Volume 68.9 fL (80.0-98.0); Mean Platelet Volume 9.9 fL (9.4-12.3); Monocytes Absolute Auto 0.5 X10*3/uL (0.1-1.2); Monocytes Percent Auto 12.1 % (2-11); Neutrophils Absolute Auto 2.1 x10*3/uL (2.0-8.3); Neutrophils Percent Auto 53.9 % (45-73); Red Blood Count 4.76 X10*6/uL (4.20-5.50); Red Cell Distribution Width 18.3 % (11.0-16.0); White Blood Count 3.9 X10*3/uL (4.8-10.8)
[2022-10-07 12:33] LABS: Ferritin 11 ng/mL (10-250); Thyroid Stimulating Hormone 1.91 uIU/mL (0.32-4.0)
[2022-10-07 12:39] LABS: Platelet Count 92 X10*3/uL (160-400)
[2022-10-07 12:43] LABS: Estimated Average Glucose 258 mg/dL; Hemoglobin A1c % 10.6 % (<6.0)
== END 2022-10-07 09:39 | disposition home or self-care (01) ==
LOC: HO.HMGCLDS 09:38
PROVIDERS: PCP Internal Medicine; Visit Provider Internal Medicine
DX: K76.0 Fatty (change of) liver, not elsewhere classified (principal); E11.65 Type 2 diabetes mellitus with hyperglycemia; G25.81 Restless legs syndrome; E78.00 Pure hypercholesterolemia, unspecified; F41.9 Anxiety disorder, unspecified; Z78.0 Asymptomatic menopausal state
CPT/HCPCS: 36415; 80053; 80061; 82728; 83036; 83540; 84443; 85025

== ENCOUNTER 2022-10-08 09:04 | Outpatient (REF) | payer MEDICARE, SELFPAY ==
[2022-10-08 11:36] LABS: Appearance Urine Turbid; Color Urine Dark Yellow; Glucose Urine UA Negative (Negative); Leukocyte Esterase Urine Large (3+) (Negative); Nitrite Urine Negative (Negative); PH 5.5 (5.0-9.0); Specific Gravity - Urine 1.025 (1.005-1.025); UMIC TRIGGER UA YES; Urine Blood Trace (Negative); Urine Ketones 15 mg/dL (Negative); Urine Protein 100 (2+) mg/dL (Neg-Trace)
[2022-10-08 11:53] LABS: Bacteria Urine 4+ (None Seen); Squamous Epithelial Cell Urine >20 /HPF (0-2); WBC Clumps Urine Present; WBC Urine >50 /HPF (0-5)
[2022-10-08 12:23] LABS: Microalbum/Creatinine Ratio Ur 44.5 ug/mg cr (<30)
[2022-10-08 16:45] LABS: Appearance Urine Cloudy; Color Urine Yellow; Glucose Urine UA 500 mg/dL (Negative); Leukocyte Esterase Urine Moderate (2+) (Negative); Nitrite Urine Positive (Negative); PH 5.5 (5.0-9.0); UMIC TRIGGER UACC YES; Urine Blood Negative (Negative); Urine Ketones Trace mg/dL (Negative); Urine Protein Trace mg/dL (Neg-Trace)
[2022-10-08 16:50] LABS: Bacteria Urine 4+ (None Seen); RBC Urine 0-2 /HPF (0-2); UACC Culture Trigger YES; WBC Urine >50 /HPF (0-5)
== END 2022-10-08 09:05 | disposition home or self-care (01) ==
LOC: HO.HMGCLDS 09:04
PROVIDERS: PCP Internal Medicine; Visit Provider Internal Medicine
DX: R82.81 Pyuria (principal); K76.0 Fatty (change of) liver, not elsewhere classified; E11.65 Type 2 diabetes mellitus with hyperglycemia; G25.81 Restless legs syndrome; E78.00 Pure hypercholesterolemia, unspecified; F41.9 Anxiety disorder, unspecified; Z78.0 Asymptomatic menopausal state
CPT/HCPCS: 81001; 82043; 87086; 87088; 87186

== ENCOUNTER 2022-10-23 08:03 | Outpatient (REF) | payer MEDICARE, SELFPAY ==
--- NOTE | ~2022-10-23 | US_ITS ---
EXAMINATION: US duplex arterial venous comp CLINICAL INFORMATION: Portal hypertension COMPARISON: CT abdomen 08/13/2022. TECHNIQUE: A complete abdominal ultrasound has been performed and dictated separately. The following is the Doppler evaluation including color, spectral Doppler of the portal veins, hepatic arteries, hepatic veins, splenic vein, and IVC. FINDINGS: SPLENIC VEIN: Patent with normal waveform. HEPATIC VEINS: Patent with normal waveforms. PORTAL VEINS: Patent with normal waveforms and hepatopetal flow. PSV in the main portal vein is 30 cm/s. HEPATIC ARTERIES: Normal upstroke and diastolic flow. INFERIOR VENA CAVA: Patent with normal waveform. Review of prior CT abdomen and pelvis 08/13/2022 shows cirrhosis, splenomegaly, and a recanalized umbilical vein consistent with portal hypertension. US/US duplex arterial venous comp IMPRESSION: The portal vein is patent with hepatopetal blood flow. Previous CT shows cirrhosis with evidence of portal hypertension (splenomegaly and recanalized umbilical vein).
--- NOTE | ~2022-10-23 | US_ITS ---
EXAMINATION: US ABDOMEN COMPLETE CLINICAL INFORMATION: Abdominal pain, portal hypertension. COMPARISON: CT abdomen and pelvis with contrast dated 08/13/2022. Ultrasound abdomen limited dated 01/20/2019. Ultrasound abdomen complete dated 11/18/2018. TECHNIQUE: Real-time imaging of the abdominal viscera. FINDINGS: PANCREAS: Limited. The visualized pancreatic head and body are normal in appearance. The remainder of the pancreas is obscured from visualization by the overlying bowel gas. ABDOMINAL AORTA: The proximal, mid, and distal segments are normal in caliber. INFERIOR VENA CAVA: Visualized portions are normal. LIVER: There is a longitudinal span of 12.2 cm. The liver contour is normal. Parenchymal echogenicity is coarse. No focal hepatic lesion. There is no intrahepatic biliary duct dilatation seen. The portal vein appears patent, with hepatopedal flow. GALLBLADDER: Normal. The gallbladder is physiologically distended without evidence of stones, sludge, polyps, wall thickening or pericholecystic fluid. COMMON BILE DUCT: Normal in caliber measuring 0.3 cm in diameter. RIGHT KIDNEY: There is an extrarenal pelvis, without danielle hydronephrosis. No renal calculi or focal parenchymal lesions. The kidney measures 9.0 cm in maximum dimension. LEFT KIDNEY: Normal. No hydronephrosis. No renal calculi or focal parenchymal lesions. The kidney measures 10.9 cm in maximum dimension. SPLEEN: No focal finding. The spleen measures 14.4 cm in maximum dimension. FREE FLUID: None. US/US abdomen complete IMPRESSION: 1. There is generalized increase in hepatic echotexture, consistent with fatty infiltration or hepatocellular disease. Please correlate clinically. No focal hepatic mass or intrahepatic biliary dilatation is seen. 2. There is hepatopedal portal venous flow. 3. There is splenomegaly. 4. Technically limited ultrasound examination of the pancreas.
[2022-10-23 15:27] LABS: Leukocytes Stool Qualitative NEGATIVE (NEGATIVE)
[2022-10-23 16:12] LABS: CDiff Gene PCR NEGATIVE (Negative)
[2022-10-24 14:35] LABS: Adenovirus F 40/41 Not Detected (Not Detect.); Astrovirus Not Detected (Not Detect.); Campylobacter Not Detected (Not Detect.); Cryptosporidium Not Detected (Not Detect.); Cyclospora cayetanensis Not Detected (Not Detect.); E. coli EAEC Not Detected (Not Detect.); E. coli EPEC Not Detected (Not Detect.); E. coli ETEC Not Detected (Not Detect.); E. coli STEC Not Detected (Not Detect.); Entamoeba histolytica Not Detected (Not Detect.); Giardia lamblia Not Detected (Not Detect.); Norovirus GI/GII Not Detected (Not Detect.); Plesiomonas shigelloides Not Detected (Not Detect.); Rotavirus A Not Detected (Not Detect.); Salmonella Not Detected (Not Detect.); Sapovirus Not Detected (Not Detect.); Shigella sp./EIEC Not Detected (Not Detect.); Vibrio Not Detected (Not Detect.); Vibrio Cholerae Not Detected (Not Detect.); Yersinia enterocolitica Not Detected (Not Detect.)
== END 2022-10-23 08:04 | disposition home or self-care (01) ==
LOC: HO.US 08:03
PROVIDERS: PCP Internal Medicine; Visit Provider Internal Medicine
DX: R10.84 Generalized abdominal pain (principal); K76.6 Portal hypertension; R19.7 Diarrhea, unspecified
CPT/HCPCS: 76700; 87493; 87507; 89055; 93975

== ENCOUNTER 2023-09-03 13:08 | Outpatient (REF) | payer MEDICARE, SELFPAY ==
[2023-09-03 16:17] LABS: Estimated Average Glucose 169 mg/dL; Hemoglobin A1c % 7.5 % (<6.0)
[2023-09-03 16:28] LABS: Alanine Aminotransferase 33 U/L (0-31); Albumin Level 4.1 g/dL (3.5-5.0); Alkaline Phosphatase 50 U/L (39-117); Anion Gap 16 (12-20); Aspartate Amino Transferase 34 U/L (5-31); Bilirubin Total 0.8 mg/dL (0.0-1.0); Blood Urea Nitrogen 13 mg/dL (9-16); Calcium 9.9 mg/dL (8.4-10.2); Carbon Dioxide 22 mmol/L (22-29); Chloride 106 mmol/L (96-108); Cholesterol 146 mg/dL (<200); Estimated Glomerular Filt Rate > 60; Glucose Random 164 mg/dL (60-115); HDL Cholesterol 60 mg/dL (>40); LDL Cholesterol Calculated 72 mg/dL (<100); Potassium 4.1 mmol/L (3.3-5.1); Sodium 140 mmol/L (135-145); Total Protein 6.8 g/dL (6.5-8.0); Triglycerides 70 mg/dL (<150)
[2023-09-03 16:29] LABS: Creatinine Urine 218.11 mg/dL; Microalbum/Creatinine Ratio Ur 5.5 ug/mg cr (<30)
== END 2023-09-03 13:09 | disposition home or self-care (01) ==
LOC: HO.HMGCLDS 13:08
PROVIDERS: PCP Internal Medicine; Visit Provider Internal Medicine Endocrinology, Diabetes & Metabolism
DX: E11.65 Type 2 diabetes mellitus with hyperglycemia (principal)
CPT/HCPCS: 36415; 80053; 80061; 82043; 82570; 83036

== ENCOUNTER 2023-09-04 12:30 | Outpatient (REF) | payer MEDICARE, SELFPAY ==
[2023-09-04 12:57] LABS: Ammonia 26 umol/L (13-55)
[2023-09-04 13:11] LABS: Iron 33 mcg/dL (30-160); Percent Iron Saturation 8 % (15-50); Total Iron Binding Capacity 437 mcg/dL (228-428); Unsaturated Iron Binding 404 ug/dL
[2023-09-04 13:26] LABS: Ferritin 7 ng/mL (10-250); TSH reflex Free T4 1.42 uIU/mL (0.32-4.0)
[2023-09-04 13:39] LABS: Folate 14.7 ng/mL (> or = 4.0); Vitamin B12 520 pg/mL (200-900)
== END 2023-09-04 12:31 | disposition home or self-care (01) ==
LOC: HO.LAB 12:30
PROVIDERS: PCP Internal Medicine; Visit Provider Internal Medicine
DX: K74.69 Other cirrhosis of liver (principal); R10.84 Generalized abdominal pain; R11.0 Nausea; D64.9 Anemia, unspecified
CPT/HCPCS: 36415; 82140; 82607; 82728; 82746; 83540; 84443; 85025

== ENCOUNTER 2023-09-11 09:56 | Outpatient (REF) | payer MEDICARE, SELFPAY ==
[2023-09-11 10:04] LABS: MANUAL DIFF FLAG NO
[2023-09-11 11:44] LABS: Basophils Percent Auto 0.4 % (0-2); Eosinophils Absolute Auto 0.1 X10*3/uL (0.0-0.4); Eosinophils Percent Auto 1.8 % (0-4); Hematocrit 33.7 % (37.0-47.0); Imm Gran Abs Auto 0.01 X10*3/uL (0.00-0.03); Imm Gran Pct Auto 0.2 % (0.0-0.4); Lymphocytes Absolute Auto 1.5 X10*3/uL (1.2-4.9); Lymphocytes Percent Auto 32.3 % (20-40); Mean Corpuscular HGB Conc 29.7 g/dl (31.0-35.0); Mean Corpuscular Hemoglobin 21.4 pg (27.0-33.0); Mean Platelet Volume 10.3 fL (9.4-12.3); Monocytes Absolute Auto 0.6 X10*3/uL (0.1-1.2); Monocytes Percent Auto 12.1 % (2-11); Neutrophils Absolute Auto 2.4 x10*3/uL (2.0-8.3); Neutrophils Percent Auto 53.2 % (45-73); Platelet Count 95 X10*3/uL (160-400); Red Blood Count 4.68 X10*6/uL (4.20-5.50); Red Cell Distribution Width 18.4 % (11.0-16.0); White Blood Count 4.6 X10*3/uL (4.8-10.8)
== END 2023-09-11 09:57 | disposition home or self-care (01) ==
LOC: HO.LAB 09:56
PROVIDERS: PCP Internal Medicine; Visit Provider Internal Medicine
DX: D50.9 Iron deficiency anemia, unspecified (principal)
CPT/HCPCS: 36415; 85025

== ENCOUNTER 2023-09-12 14:52 | Outpatient (REF) | payer MEDICARE, SELFPAY | END 2023-09-12 14:53 | disposition home or self-care (01) | LOC: HO.LNP 14:52 | PROVIDERS: Visit Provider Internal Medicine | DX: K74.69 Other cirrhosis of liver (principal); R10.84 Generalized abdominal pain; R11.0 Nausea; D64.9 Anemia, unspecified | CPT/HCPCS: 87338 ==

== ENCOUNTER → 2023-09-17 15:07 | Outpatient (BNV) | payer MEDICARE, SELFPAY | PROVIDERS: PCP Internal Medicine; Referring Provider Internal Medicine; Visit Provider Internal Medicine | DX: D50.9 Iron deficiency anemia, unspecified (principal) | CPT/HCPCS: 99204; G2211 ==

== ENCOUNTER 2023-10-15 13:30 | Outpatient (RCR) | payer MEDICARE, SELFPAY ==
[2023-09-24 12:44] VITALS: BP 113/59; PULSE 68; RESP 18; TEMP 36.8; O2SAT 96; BMI 30.5
[2023-09-24] MEDS: Iron Sucrose Complex 200 MG in 0.9 % Sodium Chloride 100 ML 440 MG IV (13:03)
[2023-09-24] MEDS: 0.9 % Sodium Chloride Flush 10 ML SYRINGE 5 ML IVFLUSH (13:20)
[2023-10-01 14:00] VITALS: BP 116/63; PULSE 71; RESP 14; TEMP 36.1; O2SAT 97
[2023-10-01] MEDS: Iron Sucrose Complex 200 MG in 0.9 % Sodium Chloride 100 ML 440 MG IV (14:07)
[2023-10-01] MEDS: 0.9 % Sodium Chloride Flush 10 ML SYRINGE 5 ML IVFLUSH (14:25)
[2023-10-08 12:21] VITALS: BP 105/63; PULSE 69; RESP 18; TEMP 36.2; O2SAT 97
[2023-10-08] MEDS: Iron Sucrose Complex 200 MG in 0.9 % Sodium Chloride 100 ML 440 MG IV (12:43)
[2023-10-08] MEDS: 0.9 % Sodium Chloride Flush 10 ML SYRINGE 5 ML IVFLUSH (12:59)
[2023-10-15 13:48] VITALS: BP 122/72; PULSE 76; RESP 18; TEMP 36.2; O2SAT 96
[2023-10-15] MEDS: Iron Sucrose Complex 200 MG in 0.9 % Sodium Chloride 100 ML 440 MG IV (13:56)
== END 2023-10-15 14:18 | disposition home or self-care (01) ==
LOC: HO.INF 13:30
PROVIDERS: Visit Provider Internal Medicine
DX: D50.9 Iron deficiency anemia, unspecified (principal)
CPT/HCPCS: 96365; 96374; J1756

== ENCOUNTER 2024-09-01 05:20 | Emergency (ER) | payer MEDICARE, SELFPAY ==
[2024-09-01 05:21] VITALS: BP 141/67; PULSE 73; RESP 14; TEMP 36.4; O2SAT 98; BMI 27.8
[2024-09-01 05:38] LABS: Imm Gran Abs Auto 0.01 X10*3/uL (0.00-0.03); Imm Gran Pct Auto 0.2 % (0.0-0.4); MANUAL DIFF FLAG SCAN; Mean Corpuscular HGB Conc 34.4 g/dl (31.0-35.0); Mean Corpuscular Hemoglobin 30.1 pg (27.0-33.0); NRBC Abs Auto 0.000 X10*3/uL (0.0-0.012); NRBC Pct Auto 0.0 /100WBC (0.0-0.2); PLT CLUMP 1; SCAN SMEAR FLAG 1
[2024-09-01 05:40] LABS: Hematocrit 38.1 % (37.0-47.0); Hemoglobin 13.1 g/dl (12.0-16.0); Lymphocytes Absolute Auto 1.4 X10*3/uL (1.2-4.9); Mean Corpuscular Volume 87.6 fL (80.0-98.0); Red Blood Count 4.35 X10*6/uL (4.20-5.50)
[2024-09-01 05:41] LABS: Platelet Count 64 X10*3/uL (160-400); White Blood Count 4.8 X10*3/uL (4.8-10.8)
[2024-09-01 05:51] VITALS: BP 119/69; PULSE 57; RESP 14; TEMP 36.6; O2SAT 97
--- OUTSIDE RECORDS SUMMARY | 2024-09-01 05:54 | XMS_ITS | Referral Summary ---
Author Organization [facility] Address [address] [place] [address] Care Team Providers Care Stem Crusher Name Role Phone Andre Jarvis Primary Care Provider Allergies Active Allergy Reactions Criticality Noted Date Comments Sulfa (Sulfonamide Antibiotics) Indigestion Medications nadolol (CORGARD) 20 mg tablet Take 20 mg by mouth daily. 01/06/2019 Active omeprazole (PriLOSEC) 20 mg capsule Take 20 mg by mouth daily. Active sertraline (ZOLOFT) 25 mg tablet Take 1 tablet by mouth daily. 11/09/2018 Active simvastatin (ZOCOR) 20 mg tablet 06/22/2018 Active diphenhydrAMINE (ANTIHISTAMINE) 25 mg capsule Take 25 mg by mouth every 6 hours as needed. Active cetirizine (ZyrTEC) 10 mg tablet Active diazePAM (VALIUM) 5 mg tablet TAKE 1 TABLET BY MOUTH ONCE A DAY NEEDED 08/14/2020 Active clobetasoL (TEMOVATE) 0.05% cream PRN 11/07/2020 Active rOPINIRole (REQUIP) 1 mg tablet 2 times a day. 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 02/09/2019 Esophageal varices in cirrhosis 02/09/2019 Basal cell carcinoma (BCC) in situ of skin 02/09 Degenerative joint disease of shoulder region NAFLD (nonalcoholic fatty liver disease) 019 Cirrhosis 02/05/2019 Encounter for pre-transplant evaluation for liver transplant 02/01/2019 Trochanteric bursitis of left hip 10/15/2018 Sacroiliitis, not elsewhere classified 7 Abnormal PFTs Immunizations Immunization Administration Dates Next Due Covid-19 Monovalent Vaccine, Moderna, mRNA, PF 06/02/2020,05/05/2020 Hepatitis A Vaccine, Adult Dosage 08/16/2019, Hepatitis B vaccine (HEPLISA V-B) vaccine 0.5 mL IM 03/15/2019,02/05/2019 Influenza, High Dose Seasona l, Preservative Free 11/22/2019 Influenza, High Dose Seasona l, Quadrivalent PF 11/21/2020 Influenza, Injectable, Madin Yazmin Canine Kidney, Preservative Free, Quadrivalent 11/07/2017 Influenza, Injectable, Quadr ivalent, Contains Preservative 11/09/2018,12/26/2015,01/30/2015 Influenza, Injectable, Quadr ivalent, Preservative Free 12/04/2016 Influenza, Trivalent, MDV, Injectable 11/06/2018 Pneumococcal Conjugate Vaccine, 13 Valent 2018 Pneumococcal Polysaccharide Vaccine, 23 Valent 08/16/2019 Tetanus Toxoid, Reduced Diph theria Toxoid, and Acellular Pertussis Vaccine, Adsorbed 02/05/2019 Zoster Vaccine, Live 02/18/2016 Social History Tobacco Use Types Packs/Day Years Used Date Smoking Tobacco: Former Cigarettes 2 12 1 04/04/1969 - 02/01/1982 Smokeless Tobacco: Never Alcohol Use Standard Drinks/Week Comments Never 0 (1 standard drink = 0.6 oz pur e alcohol) Comments Unknown Sex and Gender Information Value Date Recorded Sex Assigned at Female 08/08/2020 7:41 AM EDT Legal Sex Female 9:15 AM EST Gender Identity Female 08/08/2020 7:41 AM EDT Sexual Orientation Straight 08/08/2020 7: 41 AM EDT 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 Industry 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 Start Date Job 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 Date 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 law, this organization might not be sharing negative HIV tests. Procedure Name Priority Date/Time Associated Diagnosis Comments HEPATITIS C ANTIBODY W/REFLEX TO HCV RNA, QUANTITATIVE PCR Routine 02/01/2019 12:11 PM EST Encounter for pre-transplant evaluation for liver transplant from Last 3 Months or Most Recently Relevant to Health Maintenance Results * Due to [place] [employer] law, this organization might not be sharing negative HIV tests. * Hepatitis C Antibody w/Reflex to PCR (02/01/2019 12:11 PM EST) Hepatitis C Antibody NON-REACT JANA NON-REACT JANA 02/02/2019 2:30 AM EST [facility] Signal To Cut-Off 0.01 <1.00 02/02/2019 2:30 AM EST [facility] Comment: HCV antibody was non-reactive. There is no laboratory evidence of HCV infection. In most cases, no further action is required. However, if recent HCV exposure is suspected, a test for HCV RNA (test code 78654) is suggested. For additional information please refer to http://education.Yuantiku/faq/HPQ31o4 (This link is being provided for informational/ educational purposes only.) Blood specimen (specimen) Structure of peripheral vein / Unknown Venipuncture / Unknown 02/01/2019 12:11 PM EST 02/01/2019 12:27 PM EST Narrative [facility] - 02/02/2019 2:30 AM EST [facility] Received Date:[id number] Joo Raymundo MD LAB BLOOD ORDERABLES Final Re sult [facility] [address] [facility] [address], [place] [address], [place] [phone] [facility] [address], [place] [address], [place] [phone] from Last 3 Months or Most Recently Relevant to Health Maintenance Insurance MEDICARE [facility] SUPP MEDICARE [facility] SUPP Advance Directives Documents on File Type Date Recorded Patient Collar Setter Overlock Expl anation Health Care Proxy 02/16/2019 12:20 PM Care Teams Stem Crusher Relationship Specialty Start Date End Date Andre Jarvis [address] [place] [id number] PCP - General Internal Medicine 01/19/19
--- OUTSIDE RECORDS SUMMARY | 2024-09-01 05:54 | XMS_ITS | Patient Health Record ---
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 Name Role Phone Bibi SINGH, Felice Primary Care Provider Andre Alexandra [phone] Allergies Allergen (clinical drug ingredient) Drug/Non Drug Allergy documented on EMR Reaction Allergy Type Onset Date Status sulfacetamide Sulfacetamide Sodium Unknown Drug Allergy Active Results Component Value Reference Range Notes Ferritin Reviewed date:09/06/2023 06:43:08 PM Interpretation: Performing Lab:[facility], [address] [place] [phone] Notes/Report: Ferritin 7 10-250 ng/mL Ammonia Reviewed date:09/04/2023 05:53:09 PM Interpretation: Performing Lab:[facility], [address] [place] [phone] Notes/Report: Ammonia 26 13-55 umol/L TSH reflex Free T4 Reviewed date:09/04/2023 01:39:36 PM Interpretation: Performing Lab:[facility], [address] [place] [phone] Notes/Report: TSH reflex Free T4 1.42 0.32-4.0 uIU/mL IRON PROFILE Reviewed date:09/04/2023 05:53:01 PM Interpretation: Performing Lab:[facility], [address] [place] [phone] Notes/Report: Iron 33 30-160 mcg/dL Total Iron Binding Capacity 437 228-428 mcg/d L Percent Iron Saturation 8 15-50 % Unsaturated Iron Binding 404 Vitamin B12 and Folate Reviewed date:09/04/2023 01:44:30 PM Interpretation: Performing Lab:[facility], [address] [place] [phone] Notes/Report: Vitamin B12 520 200-900 pg/mL NORMAL 200-900 PG/ML INDETERMINATE 160-199 PG/ML DEFICIENT < 160 PG/ML Folate 14.7 > or = 4.0 ng/mL Reference Values: > or = 4.0 ng/mL < 4.0 ng/mL suggests folate deficiency Methotrexate, aminopterin and folinic acid (leucovorin) are chemotherapeutic agents whose molecular structures are similar to folate; therefore, the [employer] folate assay cannot be used for patients using these drugs. Complete Blood Count Auto Di ff Reviewed date:09/15/2023 07:00:59 PM Interpretation: Performing Lab:[facility], [address] [place] [phone] Notes/Report: White Blood Count 4.6 4.8-10.8 X10*3/uL Red Blood Count 4.68 4.20-5.50 X10*6/uL Hemoglobin 10.0 12.0-16.0 g/dl Hematocrit 33.7 37.0-47.0 % Mean Corpuscular Volume 72.0 80.0-98.0 fL Mean Corpuscular Hemoglobin 21.4 27.0-33.0 pg Mean Corpuscular HGB Conc 29.7 31.0-35.0 g/dl Red Cell Distribution Width 18.4 11.0-16.0 % Platelet Count 95 160-400 X10*3/uL Mean Platelet Volume 10.3 9.4-12.3 fL Neutrophils Percent Auto 53.2 45-73 % Imm Gran Pct Auto 0.2 0.0-0.4 % Lymphocytes Percent Auto 32.3 20-40 % Monocytes Percent Auto 12.1 2-11 % Eosinophils Percent Auto 1.8 0-4 % Basophils Percent Auto 0.4 0-2 % NRBC Pct Auto 0.0 0.0-0.2 /100WBC Neutrophils Absolute Auto 2.4 2.0-8.3 x10*3/u L Imm Gran Abs Auto 0.01 0.00-0.03 X10*3/uL Lymphocytes Absolute Auto 1.5 1.2-4.9 X10*3/u L Monocytes Absolute Auto 0.6 0.1-1.2 X10*3/uL Eosinophils Absolute Auto 0.1 0.0-0.4 X10*3/u L Basophils Absolute Auto 0.0 0.0-0.2 X10*3/uL NRBC Abs Auto 0.000 0.0-0.012 X10*3/uL H pylori Ag Stool Reviewed date:09/16/2023 07:50:26 PM Interpretation: Performing Lab:[facility], [address] [place] [phone] Notes/Report: H pylori Ag Stool SEE NOTE [employer], EIA, STOOL Micro Number: [id number] Test Status: Final Specimen Source: Stool Specimen Quality: Adequate H.pylori Ag: Not Detected Antimicrobials, proton pump inhibitors, and bismuth preparations inhibit H. pylori and ingestion up to two weeks prior to testing may cause false negative results. If clinically indicated the test should be repeated on a new specimen obtained two weeks after discontinuing treatment. Reference Range: Not Detected THIS TEST WAS PERFORMED AT: [facility] [address] [place] [phone] LITTLE RINCON MD Reason For Referral No Information Medications Medication SIG (Take, Route, Frequency, Duration) Notes Start Date End Date Status Vitamin A 2400 MCG (8000 UT) 2 capsules with food or milk Orally Once a day Active Simvastatin 20 MG 1 tablet in the evening Orally Once a day Active Vitamin D 50 MCG (2000 UT) 1 tablet Orally Once a day Active Sertraline HCl 25 MG 1 tablet Orally Once a day Active Eliquis 5 MG as directed Orally Active Tresiba FlexTouch 100 UNIT/ML as directed Subcutaneous Active diazePAM 5 MG as directed Orally as needed for muscle spasms Active rOPINIRole HCl 2 MG 2 tablet 1 to 3 hours before bedtime Orally Once a day Active Omeprazole Magnesium 20 MG 1 tablet Orally twice a day Active Furosemide 20 MG 1 tablet Orally Once a day for 30 day(s) Active rifAXIMin 550 MG 1 tablet Orally Twice a day for 30 day(s) stopped due to cost Not-Taking Fiasp 100 UNIT/ML as directed Injection Active Nadolol 20 MG TAKE 1 TABLET BY MOUTH EVERY DAY for 90 Active traZODone HCl 50 MG 1 tablet at bedtime Oral Once a day as needed occassionally Active Estradiol 0.1 MG/GM as directed Vaginal twice a week Active Spironolactone 50 MG Oral for 90 Active Immunizations Vaccine Route Administration Date Status Comme nts Influenza Unknown 11/03/2018 Administered Influenza Unknown 12/05/2020 Administered Influenza Unknown 11/05/2023 Administered Social History Tobacco Use: Social History Observation Description Date Details (start date - stop date) Former Smoker NA - NA Tobacco Use/Smoking Question Answer Notes Patient is a former smoker When did you stop smoking? 37 years ago How long has it been since you last smoked? > 10 years Alcohol Screen Question Answer Notes Did you have a drink contain ing alcohol in the past year? Yes How often did you have a dri nk containing alcohol in the past year? Never (0 point) How many drinks did you have on a typical day when you were drinking in the past year? 1 or 2 drinks (0 point) How often did you have 6 or more drinks on one occasion in the past year? Never (0 point) Points 0 Interpretation Negative Section Notes: Nonsmoker; no sig alcohol Nonsmoker; no sig alcohol Nonsmoker; no sig alcohol Nonsmoker; no sig alcohol Nonsmoker; no sig alcohol Nonsmoker; no sig alcohol Nonsmoker; no sig alcohol Nonsmoker; no sig alcohol Problems Problem Type SNOMED Code ICD Code Onset Dates Problem Status W/U Status Risk Notes Problem 666404268 Encounter for screening for malignant neoplasm of colon (Z12.11) Active confirmed Problem Diarrhea (32233545) Diarrhea (R19.7) Active confirmed Problem 04145903 Secondary esophageal varices without bleeding (I85.10) Active confirmed Problem 29692055 Other cirrhosis of liver (K74.69) Active confirmed Problem Portal hypertension (49159839) Portal hypertension (K76.6) Active confirmed Problem Nausea (310113332) Nausea (R11.0) Active confirmed Problem Iron deficiency anemia (05026971) Iron deficiency anemia (D50.9) Active confirmed Problem Abnormal blood test (324100076463441) Abnormal celiac antibody panel (R89.4) Active confirmed Problem 358667126 Elevated liver enzymes (R74.8) Active confirmed Problem 913112965 Fatty liver (K76.0) Active confirmed Problem 389762278 Gastroesophageal reflux disease, esophagitis presence not specified (K21.9) Active confirmed Problem Anemia (368670484) Anemia (D64.9) Active confirmed Problem Esophageal varices (41377570) Esophageal varices (I85.00) Active confirmed Problem 44347579 Diarrhea, unspecified type (R19.7) Active confirmed Problem Ascites (233785817) Ascites (R18.8) Active confirmed Problem Diverticulosis of colon (036003835) Diverticulosis of colon (K57.30) Active confirmed Problem 305129478 Thrombocytopenia (D69.6) Active confirmed Problem Generalized abdominal pain (954359949) Abdominal pain, acute, generalized (R10.84) Active confirmed Problem Hepatic encephalopathy (72108748) Hepatic encephalopathy (K76.82) Active confirmed Vital Signs Temperature 96.9 degrees Fahrenheit 08/03/2024 Blood pressure diastolic 01 mm Hg 08/03/2024 Height 63 in 08/03/2024 Blood pressure systolic 001 mm Hg 08/03/2024 Weight 154 lbs 08/03/2024 BMI 27.28 kg/m2 08/03/2024 Encounters Encounter Location Date Provider Diagnosis [facility] [address] [place] [phone] 09/04/2023 Andre Irwin Gastroesophageal ref lux disease, esophagitis presence not specified K21.9 ; Other cirrhosis of liver K74.69 ; Diarrhea, unspecified type R19.7 ; Abdominal pain, acute, generalized R10.84 ; Nausea R11.0 and Anemia D64.[address] [place] [phone] 08/03/2024 Andre Irwin Other cirrhosis of l iver K74.69 ; Secondary esophageal varices without bleeding I85.10 ; Thrombocytopenia D69.6 ; Fatty liver K76.0 ; Ascites R18.8 ; Iron deficiency anemia D50.9 and Hepatic encephalopathy K76.[address] [facility] [address] [place] [phone] 09/04/2023 Andre Irwin [facility] [address] [place] [phone] 09/04/2023 Andre Irwin Iron deficiency anem ia D50.9 Assessments Encounter Date Diagnosis (ICD Code) Assessment Notes Treatment Notes Treatment Clinical Notes Section Notes 09/04/2023 Other cirrhosis of liver (ICD-10 - K74.69) Overall, Aydin cirrhosis remains well-compensated without any sign of jaundice, GI bleeding, worsening ascites, nor encephalopathy. However she does remain symptomatic in regard to her anemia, nausea, and abdominal cramps with loose stool. We did discuss the question of obtaining gastric biopsies to inspect for H. pylori as the physician in [place] had mentioned to her last month. Obviously it would have been better for biopsies to have been obtained during the endoscopy just last month rather than have to put her through another procedure now. In my opinion I do not think it is worthwhile to put her through an endoscopy just to obtain gastric biopsies for H. pylori, that even if present may very well not be contributing to any symptoms she is having. She has never had an ulcer and therefore, even if H. pylori was present I would be inclined not to treat it given that she is ready having a lot of GI symptoms which could be worsened by a course of antibiotics used for H. pylori. Rather than an endoscopy, I recommended a stool test for H. pylori antigen. In regard to her significant anemia and fatigue, as well as her limited ability to use oral iron due to GI upset, I recommended a visit with the hematologists to arrange for some IV iron infusions. I shall check a followup CBC and iron profile to document the iron deficiency and to obtain a baseline prior to any iron infusions. I shall also check some B12 and folate levels. I did advise her that she can certainly continue to just use lactulose intermittently and hold off on the Xifaxan given no sign of any obvious encephalopathy on today's exam. I shall check an ammonia level today. Given all of her other recent studies last month, including the MRI of the abdomen, I don't think any further labs or imaging studies are required. I did recommend she start some Zofran on a p.r.n. basis for nausea and dicyclomine for her lower abdominal cramps so as to hopefully give her some symptomatic improvement. I shall give her prescriptions for both of those. In regard to the nausea she does have underlying diabetes which may be causing some gastroparesis and symptoms on that basis, although the recent endoscopy in [place] did not reveal any evidence of retained gastric contents which would tend to go against significant gastroparesis. I did recommend that she start some vitamin D with calcium given the borderline low vitamin D levels last month. She does advise me that she has an appointment in September to be seen at the [facility] liver transplant center before she goes back to [place] in November. Therefore, I will not plan to see her before she leaves for [place] and have given her an appointment to see me next July when she returns home from [place]. I did advise her to certainly contact me in the interim if she has any problems or questions I can be of assistance with. Gwendolyn and her were very comfortable with this plan. Thank you again for allowing me to participate in Gwendolyn's care. I shall continue to keep you advised of her progress. 09/04/2023 Gastroesophageal reflux disease, esophagitis presence not specified (ICD-10 - K21.9) Overall, Gwendolyn's cirrhosis remains well-compensated without any sign of jaundice, GI bleeding, worsening ascites, nor encephalopathy. However she does remain symptomatic in regard to her anemia, nausea, and abdominal cramps with loose stool. We did discuss the question of obtaining gastric biopsies to inspect for H. pylori as the physician in [place] had mentioned to her last month. Obviously it would have been better for biopsies to have been obtained during the endoscopy just last month rather than have to put her through another procedure now. In my opinion I do not think it is worthwhile to put her through an endoscopy just to obtain gastric biopsies for H. pylori, that even if present may very well not be contributing to any symptoms she is having. She has never had an ulcer and therefore, even if H. pylori was present I would be inclined not to treat it given that she is ready having a lot of GI symptoms which could be worsened by a course of antibiotics used for H. pylori. Rather than an endoscopy, I recommended a stool test for H. pylori antigen. In regard to her significant anemia and fatigue, as well as her limited ability to use oral iron due to GI upset, I recommended a visit with the hematologists to arrange for some IV iron infusions. I shall check a followup CBC and iron profile to document the iron deficiency and to obtain a baseline prior to any iron infusions. I shall also check some B12 and folate levels. I did advise her that she can certainly continue to just use lactulose intermittently and hold off on the Xifaxan given no sign of any obvious encephalopathy on today's exam. I shall check an ammonia level today. Given all of her other recent studies last month, including the MRI of the abdomen, I don't think any further labs or imaging studies are required. I did recommend she start some Zofran on a p.r.n. basis for nausea and dicyclomine for her lower abdominal cramps so as to hopefully give her some symptomatic improvement. I shall give her prescriptions for both of those. In regard to the nausea she does have underlying diabetes which may be causing some gastroparesis and symptoms on that basis, although the recent endoscopy in [place] did not reveal any evidence of retained gastric contents which would tend to go against significant gastroparesis. I did recommend that she start some vitamin D with calcium given the borderline low vitamin D levels last month. She does advise me that she has an appointment in September to be seen at the [facility] liver transplant center before she goes back to [place] in November. Therefore, I will not plan to see her before she leaves for [place] and have given her an appointment to see me next July when she returns home from [place]. I did advise her to certainly contact me in the interim if she has any problems or questions I can be of assistance with. Gwendolyn and her were very comfortable with this plan. Thank you again for allowing me to participate in Gwendolyn's care. I shall continue to keep you advised of her progress. 08/03/2024 Secondary esophageal varices without bleeding (ICD-10 - I85.10) Overall, Gwendolyn appears stable at the present time in regard to the cirrhosis with associated complications of ascites, esophageal varices, and some hepatic encephalopathy. At the present time she does not show any signs of increasing fluid accumulation, hepatic encephalopathy, nor any reported GI bleeding. Given her recent hospitalization and close follow-up with the [facility] in [place] I do not think I need to do any major diagnostic interventions or adjustment of her medications at this time. I did recommend we check the below laboratories just to have on file here in the event she has any problems over the next few months that she is here. I think it would be helpful to have some baseline labs in the event she has any worsening of her condition while up here. I did advise her to contact me if she develops any increasing abdominal girth or edema that might require adjustment of her diuretics or possible repeat paracentesis. I did advise her to try to avoid salt is much as possible. We did review that she has been now diagnosed with cirrhosis for 6 years and thankfully things have been stable for the most part, although clearly things are progressing based on her recent diagnosis of ascites and the portal vein thrombosis. She will continue to be followed closely in [place] but I did advise her to certainly call me while she is here or in [place] if there are any problems or questions that I can be of assistance with. It sounds like she will definitely be listed for transplant when she goes back to [place] in few months. We did review the need to be very cautious when she starts the Eliquis and to be sure to avoid all aspirin and NSAIDs completely. I have given her an appointment to see me again in 1 year but did advise her to call me in the interim if I can be of any assistance. Gwendolyn was comfortable with this plan. Thank you again for allowing me to participate in Gwendolyn's care. I shall continue to keep you advised of her progress. 08/03/2024 Other cirrhosis of liver (ICD-10 - K74.69) Continue the same medical regimen. Watch salt intake so as to avoid fluid accumulation. Do the labs. Call me if problems while you are in town . Overall, Gwendolyn appears stable at the present time in regard to the cirrhosis with associated complications of ascites, esophageal varices, and some hepatic encephalopathy. At the present time she does not show any signs of increasing fluid accumulation, hepatic encephalopathy, nor any reported GI bleeding. Given her recent hospitalization and close follow-up with the [facility] in [place] I do not think I need to do any major diagnostic interventions or adjustment of her medications at this time. I did recommend we check the below laboratories just to have on file here in the event she has any problems over the next few months that she is here. I think it would be helpful to have some baseline labs in the event she has any worsening of her condition while up here. I did advise her to contact me if she develops any increasing abdominal girth or edema that might require adjustment of her diuretics or possible repeat paracentesis. I did advise her to try to avoid salt is much as possible. We did review that she has been now diagnosed with cirrhosis for 6 years and thankfully things have been stable for the most part, although clearly things are progressing based on her recent diagnosis of ascites and the portal vein thrombosis. She will continue to be followed closely in [place] but I did advise her to certainly call me while she is here or in [place] if there are any problems or questions that I can be of assistance with. It sounds like she will definitely be listed for transplant when she goes back to [place] in few months. We did review the need to be very cautious when she starts the Eliquis and to be sure to avoid all aspirin and NSAIDs completely. I have given her an appointment to see me again in 1 year but did advise her to call me in the interim if I can be of any assistance. Gwendolyn was comfortable with this plan. Thank you again for allowing me to participate in Gwendolyn's care. I shall continue to keep you advised of her progress. 09/04/2023 Iron deficiency anemia (ICD-10 - D50.9) 09/04/2023 Diarrhea, unspecified type (ICD-10 - R19.7) Overall, Gwendolyn's cirrhosis remains well-compensated without any sign of jaundice, GI bleeding, worsening ascites, nor encephalopathy. However she does remain symptomatic in regard to her anemia, nausea, and abdominal cramps with loose stool. We did discuss the question of obtaining gastric biopsies to inspect for H. pylori as the physician in [place] had mentioned to her last month. Obviously it would have been better for biopsies to have been obtained during the endoscopy just last month rather than have to put her through another procedure now. In my opinion I do not think it is worthwhile to put her through an endoscopy just to obtain gastric biopsies for H. pylori, that even if present may very well not be contributing to any symptoms she is having. She has never had an ulcer and therefore, even if H. pylori was present I would be inclined not to treat it given that she is ready having a lot of GI symptoms which could be worsened by a course of antibiotics used for H. pylori. Rather than an endoscopy, I recommended a stool test for H. pylori antigen. In regard to her significant anemia and fatigue, as well as her limited ability to use oral iron due to GI upset, I recommended a visit with the hematologists to arrange for some IV iron infusions. I shall check a followup CBC and iron profile to document the iron deficiency and to obtain a baseline prior to any iron infusions. I shall also check some B12 and folate levels. I did advise her that she can certainly continue to just use lactulose intermittently and hold off on the Xifaxan given no sign of any obvious encephalopathy on today's exam. I shall check an ammonia level today. Given all of her other recent studies last month, including the MRI of the abdomen, I don't think any further labs or imaging studies are required. I did recommend she start some Zofran on a p.r.n. basis for nausea and dicyclomine for her lower abdominal cramps so as to hopefully give her some symptomatic improvement. I shall give her prescriptions for both of those. In regard to the nausea she does have underlying diabetes which may be causing some gastroparesis and symptoms on that basis, although the recent endoscopy in [place] did not reveal any evidence of retained gastric contents which would tend to go against significant gastroparesis. I did recommend that she start some vitamin D with calcium given the borderline low vitamin D levels last month. She does advise me that she has an appointment in September to be seen at the [facility] liver transplant center before she goes back to [place] in November. Therefore, I will not plan to see her before she leaves for [place] and have given her an appointment to see me next July when she returns home from [place]. I did advise her to certainly contact me in the interim if she has any problems or questions I can be of assistance with. Gwendolyn and her were very comfortable with this plan. Thank you again for allowing me to participate in Gwendolyn's care. I shall continue to keep you advised of her progress. 08/03/2024 Thrombocytopenia (ICD-10 - D69.6) Overall, Gwendolyn appears stable at the present time in regard to the cirrhosis with associated complications of ascites, esophageal varices, and some hepatic encephalopathy. At the present time she does not show any signs of increasing fluid accumulation, hepatic encephalopathy, nor any reported GI bleeding. Given her recent hospitalization and close follow-up with the [facility] in [place] I do not think I need to do any major diagnostic interventions or adjustment of her medications at this time. I did recommend we check the below laboratories just to have on file here in the event she has any problems over the next few months that she is here. I think it would be helpful to have some baseline labs in the event she has any worsening of her condition while up here. I did advise her to contact me if she develops any increasing abdominal girth or edema that might require adjustment of her diuretics or possible repeat paracentesis. I did advise her to try to avoid salt is much as possible. We did review that she has been now diagnosed with cirrhosis for 6 years and thankfully things have been stable for the most part, although clearly things are progressing based on her recent diagnosis of ascites and the portal vein thrombosis. She will continue to be followed closely in [place] but I did advise her to certainly call me while she is here or in [place] if there are any problems or questions that I can be of assistance with. It sounds like she will definitely be listed for transplant when she goes back to [place] in few months. We did review the need to be very cautious when she starts the Eliquis and to be sure to avoid all aspirin and NSAIDs completely. I have given her an appointment to see me again in 1 year but did advise her to call me in the interim if I can be of any assistance. Gwendolyn was comfortable with this plan. Thank you again for allowing me to participate in Gwendolyn's care. I shall continue to keep you advised of her progress. 09/04/2023 Abdominal pain, acute, generalized (ICD-10 - R10.84) Overall, Gwendolyn's cirrhosis remains well-compensated without any sign of jaundice, GI bleeding, worsening ascites, nor encephalopathy. However she does remain symptomatic in regard to her anemia, nausea, and abdominal cramps with loose stool. We did discuss the question of obtaining gastric biopsies to inspect for H. pylori as the physician in [place] had mentioned to her last month. Obviously it would have been better for biopsies to have been obtained during the endoscopy just last month rather than have to put her through another procedure now. In my opinion I do not think it is worthwhile to put her through an endoscopy just to obtain gastric biopsies for H. pylori, that even if present may very well not be contributing to any symptoms she is having. She has never had an ulcer and therefore, even if H. pylori was present I would be inclined not to treat it given that she is ready having a lot of GI symptoms which could be worsened by a course of antibiotics used for H. pylori. Rather than an endoscopy, I recommended a stool test for H. pylori antigen. In regard to her significant anemia and fatigue, as well as her limited ability to use oral iron due to GI upset, I recommended a visit with the hematologists to arrange for some IV iron infusions. I shall check a followup CBC and iron profile to document the iron deficiency and to obtain a baseline prior to any iron infusions. I shall also check some B12 and folate levels. I did advise her that she can certainly continue to just use lactulose intermittently and hold off on the Xifaxan given no sign of any obvious encephalopathy on today's exam. I shall check an ammonia level today. Given all of her other recent studies last month, including the MRI of the abdomen, I don't think any further labs or imaging studies are required. I did recommend she start some Zofran on a p.r.n. basis for nausea and dicyclomine for her lower abdominal cramps so as to hopefully give her some symptomatic improvement. I shall give her prescriptions for both of those. In regard to the nausea she does have underlying diabetes which may be causing some gastroparesis and symptoms on that basis, although the recent endoscopy in [place] did not reveal any evidence of retained gastric contents which would tend to go against significant gastroparesis. I did recommend that she start some vitamin D with calcium given the borderline low vitamin D levels last month. She does advise me that she has an appointment in September to be seen at the [facility] before she goes back to [place] in November. Therefore, I will not plan to see her before she leaves for [place] and have given her an appointment to see me next July when she returns home from [place]. I did advise her to certainly contact me in the interim if she has any problems or questions I can be of assistance with. Gwendolyn and her were very comfortable with this plan. Thank you again for allowing me to participate in Gwendolyn's care. I shall continue to keep you advised of her progress. 08/03/2024 Fatty liver (ICD-10 - K76.0) Overall, Gwendolyn appears stable at the present time in regard to the cirrhosis with associated complications of ascites, esophageal varices, and some hepatic encephalopathy. At the present time she does not show any signs of increasing fluid accumulation, hepatic encephalopathy, nor any reported GI bleeding. Given her recent hospitalization and close follow-up with the [facility] in [place] I do not think I need to do any major diagnostic interventions or adjustment of her medications at this time. I did recommend we check the below laboratories just to have on file here in the event she has any problems over the next few months that she is here. I think it would be helpful to have some baseline labs in the event she has any worsening of her condition while up here. I did advise her to contact me if she develops any increasing abdominal girth or edema that might require adjustment of her diuretics or possible repeat paracentesis. I did advise her to try to avoid salt is much as possible. We did review that she has been now diagnosed with cirrhosis for 6 years and thankfully things have been stable for the most part, although clearly things are progressing based on her recent diagnosis of ascites and the portal vein thrombosis. She will continue to be followed closely in [place] but I did advise her to certainly call me while she is here or in [place] if there are any problems or questions that I can be of assistance with. It sounds like she will definitely be listed for transplant when she goes back to [place] in few months. We did review the need to be very cautious when she starts the Eliquis and to be sure to avoid all aspirin and NSAIDs completely. I have given her an appointment to see me again in 1 year but did advise her to call me in the interim if I can be of any assistance. Gwendolyn was comfortable with this plan. Thank you again for allowing me to participate in Gwendolyn's care. I shall continue to keep you advised of her progress. 09/04/2023 Nausea (ICD-10 - R11.0) Overall, Gwendolyn's cirrhosis remains well-compensated without any sign of jaundice, GI bleeding, worsening ascites, nor encephalopathy. However she does remain symptomatic in regard to her anemia, nausea, and abdominal cramps with loose stool. We did discuss the question of obtaining gastric biopsies to inspect for H. pylori as the physician in [place] had mentioned to her last month. Obviously it would have been better for biopsies to have been obtained during the endoscopy just last month rather than have to put her through another procedure now. In my opinion I do not think it is worthwhile to put her through an endoscopy just to obtain gastric biopsies for H. pylori, that even if present may very well not be contributing to any symptoms she is having. She has never had an ulcer and therefore, even if H. pylori was present I would be inclined not to treat it given that she is ready having a lot of GI symptoms which could be worsened by a course of antibiotics used for H. pylori. Rather than an endoscopy, I recommended a stool test for H. pylori antigen. In regard to her significant anemia and fatigue, as well as her limited ability to use oral iron due to GI upset, I recommended a visit with the hematologists to arrange for some IV iron infusions. I shall check a followup CBC and iron profile to document the iron deficiency and to obtain a baseline prior to any iron infusions. I shall also check some B12 and folate levels. I did advise her that she can certainly continue to just use lactulose intermittently and hold off on the Xifaxan given no sign of any obvious encephalopathy on today's exam. I shall check an ammonia level today. Given all of her other recent studies last month, including the MRI of the abdomen, I don't think any further labs or imaging studies are required. I did recommend she start some Zofran on a p.r.n. basis for nausea and dicyclomine for her lower abdominal cramps so as to hopefully give her some symptomatic improvement. I shall give her prescriptions for both of those. In regard to the nausea she does have underlying diabetes which may be causing some gastroparesis and symptoms on that basis, although the recent endoscopy in [place] did not reveal any evidence of retained gastric contents which would tend to go against significant gastroparesis. I did recommend that she start some vitamin D with calcium given the borderline low vitamin D levels last month. She does advise me that she has an appointment in September to be seen at the [facility] liver transplant center before she goes back to [place] in November. Therefore, I will not plan to see her before she leaves for [place] and have given her an appointment to see me next July when she returns home from [place]. I did advise her to certainly contact me in the interim if she has any problems or questions I can be of assistance with. Gwendolyn and her were very comfortable with this plan. Thank you again for allowing me to participate in Gwendolyn's care. I shall continue to keep you advised of her progress. 08/03/2024 Ascites (ICD-10 - R18.8) Overall, Gwendolyn appears stable at the present time in regard to the cirrhosis with associated complications of ascites, esophageal varices, and some hepatic encephalopathy. At the present time she does not show any signs of increasing fluid accumulation, hepatic encephalopathy, nor any reported GI bleeding. Given her recent hospitalization and close follow-up with the [facility] in [place] I do not think I need to do any major diagnostic interventions or adjustment of her medications at this time. I did recommend we check the below laboratories just to have on file here in the event she has any problems over the next few months that she is here. I think it would be helpful to have some baseline labs in the event she has any worsening of her condition while up here. I did advise her to contact me if she develops any increasing abdominal girth or edema that might require adjustment of her diuretics or possible repeat paracentesis. I did advise her to try to avoid salt is much as possible. We did review that she has been now diagnosed with cirrhosis for 6 years and thankfully things have been stable for the most part, although clearly things are progressing based on her recent diagnosis of ascites and the portal vein thrombosis. She will continue to be followed closely in [place] but I did advise her to certainly call me while she is here or in [place] if there are any problems or questions that I can be of assistance with. It sounds like she will definitely be listed for transplant when she goes back to [place] in few months. We did review the need to be very cautious when she starts the Eliquis and to be sure to avoid all aspirin and NSAIDs completely. I have given her an appointment to see me again in 1 year but did advise her to call me in the interim if I can be of any assistance. Gwendolyn was comfortable with this plan. Thank you again for allowing me to participate in Gwendolyn's care. I shall continue to keep you advised of her progress. 09/04/2023 Anemia (ICD-10 - D64.9) Overall, Gwendolyn's cirrhosis remains well-compensated without any sign of jaundice, GI bleeding, worsening ascites, nor encephalopathy. However she does remain symptomatic in regard to her anemia, nausea, and abdominal cramps with loose stool. We did discuss the question of obtaining gastric biopsies to inspect for H. pylori as the physician in [place] had mentioned to her last month. Obviously it would have been better for biopsies to have been obtained during the endoscopy just last month rather than have to put her through another procedure now. In my opinion I do not think it is worthwhile to put her through an endoscopy just to obtain gastric biopsies for H. pylori, that even if present may very well not be contributing to any symptoms she is having. She has never had an ulcer and therefore, even if H. pylori was present I would be inclined not to treat it given that she is ready having a lot of GI symptoms which could be worsened by a course of antibiotics used for H. pylori. Rather than an endoscopy, I recommended a stool test for H. pylori antigen. In regard to her significant anemia and fatigue, as well as her limited ability to use oral iron due to GI upset, I recommended a visit with the hematologists to arrange for some IV iron infusions. I shall check a followup CBC and iron profile to document the iron deficiency and to obtain a baseline prior to any iron infusions. I shall also check some B12 and folate levels. I did advise her that she can certainly continue to just use lactulose intermittently and hold off on the Xifaxan given no sign of any obvious encephalopathy on today's exam. I shall check an ammonia level today. Given all of her other recent studies last month, including the MRI of the abdomen, I don't think any further labs or imaging studies are required. I did recommend she start some Zofran on a p.r.n. basis for nausea and dicyclomine for her lower abdominal cramps so as to hopefully give her some symptomatic improvement. I shall give her prescriptions for both of those. In regard to the nausea she does have underlying diabetes which may be causing some gastroparesis and symptoms on that basis, although the recent endoscopy in [place] did not reveal any evidence of retained gastric contents which would tend to go against significant gastroparesis. I did recommend that she start some vitamin D with calcium given the borderline low vitamin D levels last month. She does advise me that she has an appointment in September to be seen at the [facility] liver transplant center before she goes back to [place] in November. Therefore, I will not plan to see her before she leaves for [place] and have given her an appointment to see me next July when she returns home from [place]. I did advise her to certainly contact me in the interim if she has any problems or questions I can be of assistance with. Gwendolyn and her were very comfortable with this plan. Thank you again for allowing me to participate in Gwendolyn's care. I shall continue to keep you advised of her progress. 08/03/2024 Iron deficiency anemia (ICD-10 - D50.9) Overall, Gwendolyn appears stable at the present time in regard to the cirrhosis with associated complications of ascites, esophageal varices, and some hepatic encephalopathy. At the present time she does not show any signs of increasing fluid accumulation, hepatic encephalopathy, nor any reported GI bleeding. Given her recent hospitalization and close follow-up with the [facility] in [place] I do not think I need to do any major diagnostic interventions or adjustment of her medications at this time. I did recommend we check the below laboratories just to have on file here in the event she has any problems over the next few months that she is here. I think it would be helpful to have some baseline labs in the event she has any worsening of her condition while up here. I did advise her to contact me if she develops any increasing abdominal girth or edema that might require adjustment of her diuretics or possible repeat paracentesis. I did advise her to try to avoid salt is much as possible. We did review that she has been now diagnosed with cirrhosis for 6 years and thankfully things have been stable for the most part, although clearly things are progressing based on her recent diagnosis of ascites and the portal vein thrombosis. She will continue to be followed closely in [place] but I did advise her to certainly call me while she is here or in [place] if there are any problems or questions that I can be of assistance with. It sounds like she will definitely be listed for transplant when she goes back to [place] in few months. We did review the need to be very cautious when she starts the Eliquis and to be sure to avoid all aspirin and NSAIDs completely. I have given her an appointment to see me again in 1 year but did advise her to call me in the interim if I can be of any assistance. Gwendolyn was comfortable with this plan. Thank you again for allowing me to participate in Gwendolyn's care. I shall continue to keep you advised of her progress. 08/03/2024 Hepatic encephalopathy (ICD-10 - K76.82) Overall, Gwendolyn appears stable at the present time in regard to the cirrhosis with associated complications of ascites, esophageal varices, and some hepatic encephalopathy. At the present time she does not show any signs of increasing fluid accumulation, hepatic encephalopathy, nor any reported GI bleeding. Given her recent hospitalization and close follow-up with the [facility] in [place] I do not think I need to do any major diagnostic interventions or adjustment of her medications at this time. I did recommend we check the below laboratories just to have on file here in the event she has any problems over the next few months that she is here. I think it would be helpful to have some baseline labs in the event she has any worsening of her condition while up here. I did advise her to contact me if she develops any increasing abdominal girth or edema that might require adjustment of her diuretics or possible repeat paracentesis. I did advise her to try to avoid salt is much as possible. We did review that she has been now diagnosed with cirrhosis for 6 years and thankfully things have been stable for the most part, although clearly things are progressing based on her recent diagnosis of ascites and the portal vein thrombosis. She will continue to be followed closely in [place] but I did advise her to certainly call me while she is here or in [place] if there are any problems or questions that I can be of assistance with. It sounds like she will definitely be listed for transplant when she goes back to [place] in few months. We did review the need to be very cautious when she starts the Eliquis and to be sure to avoid all aspirin and NSAIDs completely. I have given her an appointment to see me again in 1 year but did advise her to call me in the interim if I can be of any assistance. Gwendolyn was comfortable with this plan. Thank you again for allowing me to participate in Gwendolyn's care. I shall continue to keep you advised of her progress. 09/04/2023 Other Start taking Vitamin D and Calcium every day Use oral Iron as much as you can, but we will have you see a [employer] to receive some Iron infusions Overall, Gwendolyn's cirrhosis remains well-compensated without any sign of jaundice, GI bleeding, worsening ascites, nor encephalopathy. However she does remain symptomatic in regard to her anemia, nausea, and abdominal cramps with loose stool. We did discuss the question of obtaining gastric biopsies to inspect for H. pylori as the physician in [place] had mentioned to her last month. Obviously it would have been better for biopsies to have been obtained during the endoscopy just last month rather than have to put her through another procedure now. In my opinion I do not think it is worthwhile to put her through an endoscopy just to obtain gastric biopsies for H. pylori, that even if present may very well not be contributing to any symptoms she is having. She has never had an ulcer and therefore, even if H. pylori was present I would be inclined not to treat it given that she is ready having a lot of GI symptoms which could be worsened by a course of antibiotics used for H. pylori. Rather than an endoscopy, I recommended a stool test for H. pylori antigen. In regard to her significant anemia and fatigue, as well as her limited ability to use oral iron due to GI upset, I recommended a visit with the hematologists to arrange for some IV iron infusions. I shall check a followup CBC and iron profile to document the iron deficiency and to obtain a baseline prior to any iron infusions. I shall also check some B12 and folate levels. I did advise her that she can certainly continue to just use lactulose intermittently and hold off on the Xifaxan given no sign of any obvious encephalopathy on today's exam. I shall check an ammonia level today. Given all of her other recent studies last month, including the MRI of the abdomen, I don't think any further labs or imaging studies are required. I did recommend she start some Zofran on a p.r.n. basis for nausea and dicyclomine for her lower abdominal cramps so as to hopefully give her some symptomatic improvement. I shall give her prescriptions for both of those. In regard to the nausea she does have underlying diabetes which may be causing some gastroparesis and symptoms on that basis, although the recent endoscopy in [place] did not reveal any evidence of retained gastric contents which would tend to go against significant gastroparesis. I did recommend that she start some vitamin D with calcium given the borderline low vitamin D levels last month. She does advise me that she has an appointment in September to be seen at the [facility] liver transplant center before she goes back to [place] in November. Therefore, I will not plan to see her before she leaves for [place] and have given her an appointment to see me next July when she returns home from [place]. I did advise her to certainly contact me in the interim if she has any problems or questions I can be of assistance with. Gwendolyn and her were very comfortable with this plan. Thank you again for allowing me to participate in Gwendolyn's care. I shall continue to keep you advised of her progress. Plan Of Treatment Pending Test Test Name Order Date CHEM 7 PROFILE 08/03/2024 LIVER PROFILE 08/03/2024 LIVER PROFILE 10/24/2021 IRON + IBC (FE) 09/04/2023 IRON + IBC (FE) 08/03/2024 CRP 10/24/2021 VITAMIN B12 AND FOLATE 09/04/2023 CBC w DIFF 09/04/2023 CBC w DIFF 09/04/2023 CBC w DIFF 08/03/2024 CBC w DIFF 10/24/2021 SED RATE (ESR) 10/24/2021 PROTHROMBIN TIME (PT, INR) 10/24/2021 CELIAC PANEL #10 10/24/2021 US ABD 01/12/2019 STOOL WBC 10/22/2022 STOOL WBC 10/24/2021 C DIFFICILE RFLX PCR 10/22/2022 C DIFFICILE RFLX PCR 10/24/2021 CALPROTECTIN, STOOL 10/24/2021 Prothrombin Time INR 08/03/2024 Ferritin 08/03/2024 Ammonia 08/03/2024 H pylori Ag Stool 09/04/2023 GI PANEL 10/24/2021 Future Test Test Name Order Date UPPER GI ENDOSCOPY 11/10/2018 COLONOSCOPY 11/10/2018 COLONOSCOPY 10/24/2021 UPPER GI ENDOSCOPY 11/03/2021 Next Appt Details Provider Name:Andre Irwin , 08/03/2025 01:00:00 PM, [address] [place] [address], [address], [place], [address], Insurance Providers Payer Name Payer Address Payer Phone Subscriber Number Group Number Insured Name Patient Relationship to Insured Coverage Start Date Coverage End Date MEDICARE OF [place] [address] [place] [address] [phone] [id number] FRANNY GWENDOLYN Self - patient is the insured [employer] ATT[employer] CLAIMS [address] [place] [phone] [id number] GWENDOLYN BLANTON Self - patient is the insured Medical (General) History Medical History History ICD Code Kidney stones Denies CT,CVA,Lung disease,renal diseas Neg screening colonoscopy 12/2007 Dr. Aung vitale in [place] Anxiety Hyperlipidemia GERD--EGD in 12/2018 reveale d a mod-sized HH, but was neg for Cunningham's/esophagitis--other findings as below Elevated LFT's--probable fat ty liver--neg. w/u in 10/2018--EGD in 12/2018 revealed esophageal varices and portal gastropathy--started on Nadolol--referral made to [facility]plant unit in 12/2018 Thrombocytopenia with platelet count of 80,000 in October 2018 Neg. 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 A liver biopsy in January 2019 confirmed this diagnosis. She is being evaluated both at [facility] liver transplant clinic(where they do only live donor transplants) and at the [facility] in [place]. She will be listed at both facilities. She describes her MELD score is 7 as of the 11/2019 OV. As of the 10/2021 office visit she advised me that she is no longer being followed at [facility] but is now being followed at [facility] liver [facility], and also continues to be followed at the [facility]. 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 Hospitalization History Reason Date(Month/Year) in [place] and had ascites
[2024-09-01 05:55] LABS: Alanine Aminotransferase 26 U/L (0-31); Albumin Level 3.7 g/dL (3.5-5.0); Alkaline Phosphatase 93 U/L (39-117); Anion Gap 13 (12-20); Aspartate Amino Transferase 41 U/L (5-31); Blood Urea Nitrogen 7 mg/dL (9-16); Calcium 8.9 mg/dL (8.4-10.2); Carbon Dioxide 23 mmol/L (22-29); Chloride 109 mmol/L (96-108); Creatinine Clr Calc Pharmacy 69.7; Estimated Glomerular Filt Rate > 60; Lipase 24 U/L (8-78); Magnesium 1.6 mg/dL (1.6-2.6); Potassium 4.0 mmol/L (3.3-5.1); Sodium 141 mmol/L (135-145); Total Protein 6.3 g/dL (6.5-8.0)
--- OUTSIDE RECORDS SUMMARY | 2024-09-01 05:55 | XMS_ITS | Data Portability ---
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 Plan of Treatment Reminders Order Date Submit Date Provider Last Modified By Organization Details Last Modified Time Details Appointments ALVA NICHOLSON ESS SUBSE Q 40 2024 11:00A M Naima Escobedo, DO Not available Not available Not available IMAGI NG EXAM 2024 11:30A M Mammogram Not available Not available Not available Lab CMP, serum or plasm a 2023 024 [place] [id number] [facility], [address], [place], [address], 07/08/2024 10:48:06 HbA1c (hemo globi n A1c), blood 2023 024 [place] [address] [facility], [address], [place], [address], 07/08/2024 10:48:06 lipid panel , serum 2023 024 [address]HomeShop18formerly [facility], [address], [place], [address], 07/08/2024 10:48:06 micro album in/cr eatin ine, ratio , urine 2023 024 [email or web address], [address], [place], [address], 07/08/2024 10:48:06 CMP, serum or plasm a 2023 024 RIC[facility], [address], [place], [address], 09/05/2023 11:30:05 HbA1c (hemo globi n A1c), blood 2023 024 [email or web address] [facility], [address], [place], [address], 07/08/2024 10:48:06 lipid panel , serum 2023 024 [email or web address] [facility], [address], [place], [address], 07/08/2024 10:48:06 micro album in/cr eatin ine, ratio , urine 2023 024 [facility], [address], [place], [address], 07/08/2024 10:48:06 CMP, serum or plasm a 2023 024 RICHA [facility], [address], [place], [address], 07/02/2023 15:11:11 HbA1c (hemo globi n A1c), blood 2023 024 RICHA [facility], [address], [place], [address], 07/02/2023 14:07:39 lipid panel , serum 2023 024 [facility], [address], [place], [address], 07/02/2023 14:38:48 micro album in/cr eatin ine, ratio , urine 2023 024 [facility], [address], [place], [address], 07/02/2023 14:39:23 Referral endoc rinyann ogy refer ral - Pleas e sched ule with first avail able provi karoline 2023 024 EDEN Oralia Garcia MD, [address] [facility] , [facility] [address], [place], [address], 12/29/2023 12:30:03 podia trist refer ral - DM to [facility] 2023 024 Montez Barbosa DPM, [address] [facility], [place], [address], 12/04/2023 11:54:04 Procedures home sleep testi ng (PROC ) 2023 Not available 12/04/2023 11:54:04 Surgeries None recor ded. Imaging MAMMO , scree bernadette, tomos ynthe sis, bilat eral 2023 024 [facility], [facility], All Locations, [place], [address], 01/06/2024 19:26:42 Medication Orders omepr azole 40 mg capsu le,de layed relea se [address] [facility] #3656, [address] [place], [address], 06/07/2024 11:51:23 famot idine 40 mg table t [address] [facility] #8492, [address] [place], [address], 06/28/2024 15:56:24 diaze tarah 5 mg table t 2023 [facility] [address] [place], [address], 12/04/2023 11:03:04 True Metri x Gluco se Test Strip 2023 024 [facility], [address] [place], [address], 09/16/2023 08:31:29 True Metri x Gluco se Test Strip [facility]23 0[facility] [address] [place], [address], 07/04/2023 16:38:52 Tresi ba FlexT ouch U-100 insul in 100 unit/ mL (3 mL) subcu taneo us pen 2023 024 [facility] [address] [place], [address], 06/20/2023 15:13:18 Lyumj ev KwikP en U-100 Insul in 100 unit/ mL subcu taneo us 2023 024 [facility] [address] [place], [address], 12/04/2023 10:33:11 True Metri x Gluco se Test Strip 2023 024 [facility] [address] [place], [address], 06/20/2023 15:21:11 Patient TargetsNo targets recorded. Patient Instructions Encounter Date Encounter Id Patient Instructions Last Modified By Organization Details Last Modified Time 06/20/2023 [id number] type 2 diabetes: care instructions [email or web address] Not available 06/20/2023 15:13:13 07/04/2023 [id number] type 2 diabetes: care instructions [email or web address] Not available 07/04/2023 15:34:15 09/16/2023 [id number] type 2 diabetes: care instructions [email or web address] Not available 09/16/2023 08:31:13 12/04/2023 [id number] Vaccine Consent form Not available 12/04/2023 11:08:52 external records - Please provide record of this patient's Diabetic Eye Exam within the last 12 months. Thank you hilary Not available 12/04/2023 11:04:36 SCREENING SCHEDULE DEPRESSION SCREENING: Not necessary, patient diagnosed with depression COLORECTAL CANCER SCREENING: Colonoscopy, average risk, every 10 years unless advised differently by provider CERVICAL CANCER SCREENING - PAP (female only): no longer recommended due to hysterectomy, age, and/or low risk unless advised differently by provider BREAST CANCER SCREENING: Mammogram: recommended annually unless advised differently by provider OSTEOPOROSIS SCREENING - Bone density (female only): up-to-date CARDIOVASCULAR RISK SCREENING - AAA screening (male only): N/A VACCINE RECOMMENDATIONS: (except if you have experienced severe allergic reaction [e.g. anaphylaxis] after a previous dose/a component of these vaccines OR otherwise advised by your provider not to receive it) Covid vaccine: COVID-19 vaccination up-to-date Influenza vaccine: recommended annually Pneumococcal Vaccine: up to date Shingles vaccine - Shingrix: vaccination up to date Tetanus vaccine: recommended every 10 years Not available 12/04/2023 11:02:33 06/07/2024 [id number] gastroesophageal reflux disease (GERD): care instructions Not available 06/07/2024 11:51:21 We discussed you r diabetes: - You are currently using Fiasp insulin at mealtimes, adjusting the dose based on your blood sugar levels. Continue this as directed. - You are also taking Tresiba insulin as part of your diabetes management. Continue this as prescribed. - Your A1c was 8.3 at your last endocrinology visit, and the goal is to bring it below 8. 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 We discussed your cirrhosis: - You are being closely monitored by [facility] and are currently on the transplant watch list, not the active transplant list. Your most recent MELD score is 8. - Continue attending your regular follow-up appointments at [facility] to remain in the program. We discussed your stomach symptoms and GERD: - Your gastric emptying study was normal. - You should now take omeprazole 40 mg in the morning before breakfast instead of at night. This may help improve your symptoms. - I am prescribing famotidine to take at night with your other medications. This has been sent to your pharmacy. - Avoid eating close to bedtime, as this can worsen GERD symptoms. If you need a snack, choose something light and healthy, like an apple. We discussed your recent EGD (esophagogastroduod enoscopy): - Your last EGD in January showed no new varices, and everything was stable. You had two varices tied during a prior procedure last summer, and the January follow-up confirmed good results. Next steps: - I will review the results of your gastric emptying study from [facility] to ensure no additional testing is needed. If further evaluation is required, I will contact you. - Continue taking sertraline daily and diazepam as needed, as previously prescribed. - Let me know if your stomach pain, bloating, or other symptoms worsen or do not improve with the adjusted medication regimen. Please call our office if you have any questions or concerns. 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 Referral for Unco ntrolled type 2 diabetes mellitus DM to establish care Referring Physician: Jairo Murry, Endocrinology, Encounter Date: 06/20/2023 Endocrinology Referral for T ype 2 diabetes mellitus Please schedule with first available provider Referring Physician: Naima Escobedo, Family Medicine, Encounter Date: 12/04/2023 Results Created Date Observation Date Name Description Value Unit Range Abnormal Flag Note LastModifiedBy Organization Detail LastModifiedTime 05/26/19 24 05/26/2023 A1C hemoglobin A1C 8.6 % 4.3 - 5.6 high ADA Recom dov d guide lines for HgbA1 C%: 5.7-6 .4% Predi abeti c < 7.0% Reaso nable glyce alan goal for non-p regna nt adult s < 8.0% Appro priat e for patie nts with hypog lycem ia or advan kasia micro /macr o vascu lar compl icati ons Not Available [facility] [address] [facility] [address] [place], [address], 05/26/2023 17:26:31 05/26/19 24 05/26/2023 A1C estimated average glucose 200 mg/dL 97 - 140 high Not Available [facility] [address] [facility] [address] [place], [address], 05/26/2023 17:26:31 05/26/19 24 05/26/2023 CMP, COMPR EHENS JANA METAB OLIC PANEL glucose 159 mg/dL 70 - 100 high Delta resul t revie wed Not Available [facility] [address], [address], 05/26/2023 17:57:18 05/26/19 24 05/26/2023 CMP, COMPR EHENS JANA METAB OLIC PANEL BUN 10 mg/dL 7 - 25 Not Available [facility], [address], 05/26/2023 17:57:18 05/26/19 24 05/26/2023 CMP, COMPR EHENS JANA METAB OLIC PANEL creatinine 0.8 mg/dL 0.6 - 1.3 Not Available [facility] [address], [address], 05/26/2023 17:57:18 05/26/19 24 05/26/2023 CMP, COMPR EHENS JANA METAB OLIC PANEL BUN/creatini ne ratio 12 calc 10 - 25 Not Available [facility] [address], [address], 05/26/2023 17:57:18 05/26/19 24 05/26/2023 CMP, COMPR EHENS JANA METAB OLIC PANEL GFR 78 mL/mi n/1.7 3m^2 >60 GFR < 60 mL/mi n for 3 or more month s may be indic ative of Oleg Aguilar se. The GFR is based on the CKD-E PI 2020 equat ion. To calcu late the new GFR from a previ ous Creat inine resul t go to: https ://wyatt w.bouchra brunson.o rg/pr ofess ional s/kdo qi/gf r&5Fc alcul ator. Not Available [facility] [address], [place], [address], 05/26/2023 17:57:18 05/26/19 24 05/26/2023 CMP, COMPR EHENS JANA METAB OLIC PANEL sodium 142 mmol/ L 135 - 145 Not Available [facility] [address], [place], [address], 05/26/2023 17:57:18 05/26/19 24 05/26/2023 CMP, COMPR EHENS JANA METAB OLIC PANEL potassium 3.7 mmol/ L 3.5 - 5.5 Delta resul t revie wed Not Available [facility] [address], [place], [address], 05/26/2023 17:57:18 05/26/19 24 05/26/2023 CMP, COMPR EHENS JANA METAB OLIC PANEL chloride 103 mmol/ L 100 - 115 Not Available [facility] [address], [place], [address], 05/26/2023 17:57:18 05/26/19 24 05/26/2023 CMP, COMPR EHENS JANA METAB OLIC PANEL CO2 31 mmol/ L 21 - 33 Not Available [facility] [address], [place], [address], 05/26/2023 17:57:18 05/26/19 24 05/26/2023 CMP, COMPR EHENS JANA METAB OLIC PANEL calcium 9.1 mg/dL 8.8 - 10.6 Not Available [facility] [address], [place], [address], 05/26/2023 17:57:18 05/26/19 24 05/26/2023 CMP, COMPR EHENS JANA METAB OLIC PANEL total protein 6.4 g/dL 6.2 - 8.6 Not Available [facility] [address] [facility] [address], [place], [address], 05/26/2023 17:57:18 05/26/19 24 05/26/2023 CMP, COMPR EHENS JANA METAB OLIC PANEL globulin 2.6 g/dL 1.3 - 4.0 Not Available [facility] [address], [place], [address], 05/26/2023 17:57:18 05/26/19 24 05/26/2023 CMP, COMPR EHENS JANA METAB OLIC PANEL albumin 3.8 g/dL 3.5 - 5.7 Not Available [facility] [address], [place], [address], 05/26/2023 17:57:18 05/26/19 24 05/26/2023 CMP, COMPR EHENS JANA METAB OLIC PANEL A/G ratio 1.5 calc 1.0 - 2.8 Not Available [facility] [address], [place], [address], 05/26/2023 17:57:18 05/26/19 24 05/26/2023 CMP, COMPR EHENS JANA METAB OLIC PANEL AST (SGOT) 28 U/L 13 - 39 Delta resul t revie wed Not Available [facility] [address] [facility] [address], [place], [address], 05/26/2023 17:57:18 05/26/19 24 05/26/2023 CMP, COMPR EHENS JANA METAB OLIC PANEL ALT (SGPT) 22 U/L 7 - 52 Delta resul t revie wed Not Available [facility] [address] [facility] [address], [place], [address], 05/26/2023 17:57:18 05/26/19 24 05/26/2023 CMP, COMPR EHENS JANA METAB OLIC PANEL alkaline phosphatase 63 U/L 20 - 128 Not Available [facility] [address] [facility] [address] [place], [address], 05/26/2023 17:57:18 05/26/19 24 05/26/2023 CMP, COMPR EHENS JANA METAB OLIC PANEL total bilirubin 0.7 mg/dL 0.3 - 1.0 Not Available [facility] [address] [facility] [address] [place], [address], 05/26/2023 17:57:18 05/26/19 24 05/26/2023 LIPID PANEL W/ CALCU LATED LDL HDL cholestrol 54 mg/dL >50 Not Available [facility] [address] [facility] [address], [place], [address], 05/26/2023 17:57:38 05/26/19 24 05/26/2023 LIPID PANEL W/ CALCU LATED LDL cholesterol 142 mg/dL <200 Expec xavi resul ts for Adult s: Total Hortencia stero l: Risk class ifica tion < 200 mg/dL Rosanne able 200-2 39 mg/dL Borde rline high >240 mg/dL High Not Available [facility] [address] [facility] [address], [place], [address], 05/26/2023 17:57:38 05/26/19 24 05/26/2023 LIPID PANEL W/ CALCU LATED LDL triglyceride 162 mg/dL 30 - 150 high Delta resul t revie wed Not Available [facility] [address] [facility] [address], [place], [address], 05/26/2023 17:57:38 05/26/19 24 05/26/2023 LIPID PANEL W/ CALCU LATED LDL non-HDL cholesterol 88 mg/dL <130 Rosanne able < 130 mg/dL Not Available [facility] [address] [facility] [address], [place], [address], 05/26/2023 17:57:38 05/26/19 24 05/26/2023 LIPID PANEL W/ CALCU LATED LDL chol/HDL risk ratio 3 calc < 5.0 Optim al Not Available [facility] [address] [facility] [address], [place], [address], 05/26/2023 17:57:38 05/26/19 24 05/26/2023 LIPID PANEL W/ CALCU LATED LDL LDL calculated 56 mg/dL 0 - 99 Not Available [facility] [address] [facility] [address] [place], [address], 05/26/2023 17:57:38 05/26/19 24 05/26/2023 MICRO ALBUM IN, RAND (UR/C REAT) urine albumin 9.7 mg/L Not Available [facility] [address] [facility] [address] [place], [address], 05/26/2023 18:04:16 05/26/19 24 05/26/2023 MICRO ALBUM IN, RAND (UR/C REAT) creatinine, urine 250 mg/dL 20 - 320 Not Available [facility] [address] [facility] [address], [place], [address], 05/26/2023 18:04:16 05/26/19 24 05/26/2023 MICRO ALBUM IN, RAND (UR/C REAT) AC ratio 3.9 mg/g <30.0 Refer ence Inter vals: The Ameri can Diabe ang Assoc iatio n defin ition of moder ately incre ased urine album in urine spot colle ction (mcg/ mg creat inine ) is as follo ws: < 30 Esther l 30 - 229 Moder ately incre ased >= 300 Clini yisel album inuri a For diagn ostic purpo ses resul ts shoul d alway s be asses sed in conju nctio n with the patie nt's medic al histo ry, clini yisel exami natio n and other findi ngs. Not Available [facility] [address] [facility] [address], [place], [address], 05/26/2023 18:04:16 05/26/19 24 05/26/2023 VENIP UNCTU RE results Compl ete Not Available [facility] [address] [facility] [address], [place], [address], 05/26/2023 14:26:23 07/02/19 24 07/02/2023 A1C hemoglobin A1C 8.6 % 4.3 - 5.6 high ADA Recom dov d guide lines for HgbA1 C%: 5.7-6 .4% Predi abeti c < 7.0% Reaso nable glyce alan goal for non-p regna nt adult s < 8.0% Appro priat e for patie nts with hypog lycem ia or advan kasia micro /macr o vascu lar compl icati ons Not Available [facility] [address] [facility] [address], [place], [address], 07/02/2023 14:07:39 07/02/19 24 07/02/2023 A1C estimated average glucose 200 mg/dL 97 - 140 high Not Available [facility] [address] [facility] [address], [place], [address], 07/02/2023 14:07:39 07/02/19 24 07/02/2023 LIPID PANEL W/ CALCU LATED LDL HDL cholestrol 71 mg/dL >50 Not Available [facility] [address] [facility] [address], [place], [address], 07/02/2023 14:38:48 07/02/19 24 07/02/2023 LIPID PANEL W/ CALCU LATED LDL cholesterol 142 mg/dL <200 Expec xavi resul ts for Adult s: Total Hortencia stero l: Risk class ifica tion < 200 mg/dL Rosanne able 200-2 39 mg/dL Borde rline high >240 mg/dL High Not Available [facility] [address] [facility] [address], [place], [address], 07/02/2023 14:38:48 07/02/19 24 07/02/2023 LIPID PANEL W/ CALCU LATED LDL triglyceride 68 mg/dL 30 - 150 Not Available [facility] [address] [facility] [address], [place], [address], 07/02/2023 14:38:48 07/02/19 24 07/02/2023 LIPID PANEL W/ CALCU LATED LDL non-HDL cholesterol 71 mg/dL <130 Rosanne able < 130 mg/dL Not Available [facility] [address] [facility] [address], [place], [address], 07/02/2023 14:38:48 07/02/19 24 07/02/2023 LIPID PANEL W/ CALCU LATED LDL chol/HDL risk ratio 2 calc < 5.0 Optim al Not Available [facility] [address] [facility] [address], [place], [address], 07/02/2023 14:38:48 07/02/19 24 07/02/2023 LIPID PANEL W/ CALCU LATED LDL LDL calculated 57 mg/dL 0 - 99 Not Available [facility] [address] [facility] [address], [place], [address], 07/02/2023 14:38:48 07/02/19 24 07/02/2023 MICRO ALBUM IN, RAND (UR/C REAT) urine albumin 7 mg/L <30 Not Available [facility] [address], [place], [address], 07/02/2023 14:39:23 07/02/19 24 07/02/2023 MICRO ALBUM IN, RAND (UR/C REAT) creatinine, urine 188 mg/dL 20 - 320 Not Available [facility] [address] [facility] [address], [place], [address], 07/02/2023 14:39:23 07/02/19 24 07/02/2023 MICRO ALBUM IN, RAND (UR/C REAT) AC ratio 3.6 mg/g <30.0 Refer ence Inter vals: The Ameri can Diabe ang Assoc iatio n defin ition of moder ately incre ased urine album in urine spot colle ction (mcg/ mg creat inine ) is as follo ws: < 30 Esther l 30 - 229 Moder ately incre ased >= 300 Clini yisel album inuri a For diagn ostic purpo ses resul ts shoul d alway s be asses sed in conju nctio n with the patie nt's medic al histo ry, clini yisel exami natio n and other findi ngs. Not Available [facility] [address], [place], [address], 07/02/2023 14:39:23 07/02/19 24 07/02/2023 CMP, COMPR EHENS JANA METAB OLIC PANEL glucose 141 mg/dL 70 - 100 high Not Available [facility] [address], [place], [address], 07/02/2023 15:11:11 07/02/19 24 07/02/2023 CMP, COMPR EHENS JANA METAB OLIC PANEL BUN 14 mg/dL 7 - 25 Not Available [facility] [address], [place], [address], 07/02/2023 15:11:11 07/02/19 24 07/02/2023 CMP, COMPR EHENS JANA METAB OLIC PANEL creatinine 0.9 mg/dL 0.6 - 1.3 Not Available [facility] [address], [place], [address], 07/02/2023 15:11:11 07/02/19 24 07/02/2023 CMP, COMPR EHENS JANA METAB OLIC PANEL BUN/creatini ne ratio 15 calc 10 - 25 Not Available [facility] [address], [place], [address], 07/02/2023 15:11:11 07/02/19 24 07/02/2023 CMP, COMPR EHENS AJNA METAB OLIC PANEL GFR 68 mL/mi n/1.7 3m^2 >60 GFR < 60 mL/mi n for 3 or more month s may be indic ative of Oleg Aguilar se. The GFR is based on the CKD-E PI 2020 equat ion. To calcu late the new GFR from a previ ous Creat inine resul t go to: https ://wyatt rosas.bouchra brunson.dede ruiz/pr cosmoess ional s/kdo qi/gf r&5Fc alcul ator. Not Available [facility] [address], [place], [address], 07/02/2023 15:11:11 07/02/19 24 07/02/2023 CMP, COMPR EHENS JANA METAB OLIC PANEL sodium 142 mmol/ L 135 - 145 Not Available [facility] [address], [place], [address], 07/02/2023 15:11:11 07/02/19 24 07/02/2023 CMP, COMPR EHENS JANA METAB OLIC PANEL potassium 4.6 mmol/ L 3.5 - 5.5 Delta resul ts revie wed. Not Available [facility] [address] [facility] [address], [place], [address], 07/02/2023 15:11:11 07/02/19 24 07/02/2023 CMP, COMPR EHENS JANA METAB OLIC PANEL chloride 104 mmol/ L 100 - 115 Not Available [facility] [address] [facility] [address], [place], [address], 07/02/2023 15:11:11 07/02/19 24 07/02/2023 CMP, COMPR EHENS JANA METAB OLIC PANEL CO2 29 mmol/ L 21 - 33 Not Available [facility] [address] [facility] [address], [place], [address], 07/02/2023 15:11:11 07/02/19 24 07/02/2023 CMP, COMPR EHENS JANA METAB OLIC PANEL calcium 9.3 mg/dL 8.8 - 10.6 Not Available [facility] [address] [facility] [address], [place], [address], 07/02/2023 15:11:11 07/02/19 24 07/02/2023 CMP, COMPR EHENS JANA METAB OLIC PANEL total protein 6.8 g/dL 6.2 - 8.6 Not Available [facility] [address] [facility] [address], [place], [address], 07/02/2023 15:11:11 07/02/19 24 07/02/2023 CMP, COMPR EHENS JANA METAB OLIC PANEL globulin 2.7 g/dL 1.3 - 4.0 Not Available [facility] [address] [facility] [address], [place], [address], 07/02/2023 15:11:11 07/02/19 24 07/02/2023 CMP, COMPR EHENS JANA METAB OLIC PANEL albumin 4.1 g/dL 3.5 - 5.7 Not Available [facility] [address] [facility] [address], [place], [address], 07/02/2023 15:11:11 07/02/19 24 07/02/2023 CMP, COMPR EHENS JANA METAB OLIC PANEL A/G ratio 1.5 calc 1.0 - 2.8 Not Available [facility] [address] [facility] [address], [place], [address], 07/02/2023 15:11:11 07/02/19 24 07/02/2023 CMP, COMPR EHENS JANA METAB OLIC PANEL AST (SGOT) 26 U/L 13 - 39 Not Available [facility] [address] [facility] [address], [place], [address], 07/02/2023 15:11:11 07/02/19 24 07/02/2023 CMP, COMPR EHENS JANA METAB OLIC PANEL ALT (SGPT) 28 U/L 7 - 52 Not Available [facility] [address] [facility] [address] [address], [place], [address], 07/02/2023 15:11:11 07/02/19 24 07/02/2023 CMP, COMPR EHENS JANA METAB OLIC PANEL alkaline phosphatase 68 U/L 20 - 128 Not Available [facility] [address] [facility] [address], [place], [address], 07/02/2023 15:11:11 07/02/19 24 07/02/2023 CMP, COMPR EHENS JANA METAB OLIC PANEL total bilirubin 0.5 mg/dL 0.3 - 1.0 Not Available [facility] [address] [facility] [address], [place], [address], 07/02/2023 15:11:11 07/02/19 24 07/02/2023 VENIP UNCTU RE results Compl ete Not Available [facility] [address], [place], [address], 07/02/2023 11:31:15 03/29/19 25 03/29/2024 VENIP UNCTU RE results Compl ete Not Available [facility] [address], [place], [address], 03/29/2024 10:52:44 07/29/19 24 07/24/2023 CT, chest , w/o contr ast INDICA TION: R91.8 Other nonspe cific abnorm al findin g of lung field. TECHNI QUE: CT CHEST WITHOU T CONTRA ST Multip lanar reform ats were obtain ed. Radiat ion dose optimi zation techni que was utiliz ed. COMPAR MADISON: 2023 FINDIN GS: Soft tissue detail is limite d withou t intrav enous contra st. LUNGS: The 12 mm nodula r densit y within the left costop hrenic angle has comple tely resolv ed and is theref ore felt to have repres ented atelec tasis. The previo usly seen right upper lobe 2.3 mm nodule could not be seen on the curren t examin ation and appear s to have resolv ed. Mild centri lobula r emphys ematou s change s are seen bilate rally. These appear unchan ged from previo us. No pleura l effusi ons or focal pneumo lou infilt rates. CARDIO VASCUL AR: Normal heart size. Small amount of perica rdial thicke bernadette versus perica rdial fluid that appear s unchan ged from previo us.Mil d multiv essel colon ry artery calcif icatio ns. The thorac ic aorta is non-an eurysm al. The pulmon allegra trunk had normal size. MEDIAS TINUM: No signif icant hilar or medias tinal lympha denopa thy. LYMPH NODES: No signif icant axilla ry lympha denopa thy identi fied. UPPER ABDOME N: The liver demons trates nodula rity of the contou r with hetero geneit y of the parenc hymal patter n that has an appear ance sugges tive of cirrho tic change s. There is mild diffus e decrea sed densit y of the liver felt to repres ent fatty infilt ration with promin ence of the caudat e lobe. The spleen is diffus paula enlarg ed which may reflec t portal venous hypert ension . OSSEOU S STRUCT URES: Mild degene rative change s thorac ic spine. No destru ctive bony proces ses. IMPRES ELLY: 1. Interv al cleari ng of the 12 mm nodula r densit y left costop hrenic angle as descri bed above. 2. Stable mild centri lobula r emphys ematou s change s as descri bed above. 3. No eviden ce for pulmon allegra nodule s on the curren t examin ation. 4. Mild multiv essel colon ry artery calcif icatio ns. 5. Cirrho tic change s of the liver with findin gs sugges tive of portal venous hypert ension as descri bed above. Electr onical ly Signed By: Jacky stallworth M.D., Board Certif ied Radiol ogist Sign Date: [facility] [address], [place], [address], 12/04/2023 11:54:03 01/06/20 24 01/05/2024 MAMMO , scree bernadette, tomos ynthe sis, bilat eral INDICA TION: Female 68 years. - Screen ing mammog yan. TECHNI QUE: SCREEN ING 3D BILATE RAL MAMMOG YAN WITH TOMOSY NTHESI S Bilate ral CC and MLO views of the breast s were obtain ed. Digita l breast tomosy nthesi s was perfor med in the CC and MLO planes . Comput er aided detect ion (CAD) softwa re was utiliz ed. COMPAR MADISON: Previo us mammog reid dated 2018. BREAST DENSIT Y: A: Almost entire ly fatty MAMMOG YAN FINDIN GS: There is no suspic ious asymme try. There is no distor tion of the willi ecture . There are no suspic ious groupi ngs of microc alcifi cation s. No abnorm al skin thicke bernadette is noted. There is no abnorm al nipple retrac tion. IMPRES ELLY: There are no suspic ious mammog raphic findin gs. BI-RAD S catego ry: 1: Negati ve RECOMM ENDATI ONS: Annual screen ing mammog yan. The patien t will be notifi ed of these findin gs as requir ed by Phuong tovar. Notes: -Mammo graphy should be supple mented by routin e clinic al and monthl y self exams. Any decisi on to biopsy should be based on clinic al assess ment, as malign felix may not be detect able by imagin g alone. Electr onical ly Signed By: Kwan das D.O., Board Certif ied Radiol ogist Sign Date: [facility], [place], [address], 06/07/2024 11:40:42 Result Notes Documentation Provider Name and Address Organization Details Recorded Time Ct, Chest, W/o Contrast : INDICATION: R91.8 Other nonspecific abnormal finding of lung field. TECHNIQUE: CT CHEST WITHOUT CONTRAST Multiplanar reformats were obtained. Radiation dose optimization technique was utilized. COMPARISON: April 16, 2023 FINDINGS: Soft tissue detail is limited without intravenous contrast. LUNGS: The 12 mm nodular density within the left costophrenic angle has completely resolved and is therefore felt to have represented atelectasis. The previously seen right upper lobe 2.3 mm nodule could not be seen on the current examination and appears to have resolved. Mild centrilobular emphysematous changes are seen bilaterally. These appear unchanged from previous. No pleural effusions or focal pneumonic infiltrates. CARDIOVASCULAR: Normal heart size. Small amount of pericardial thickening versus pericardial fluid that appears unchanged from previous.Mild multivessel coronary artery calcifications. The thoracic aorta is non-aneurysmal. The pulmonary trunk had normal size. MEDIASTINUM: No significant hilar or mediastinal lymphadenopathy. LYMPH NODES: No significant axillary lymphadenopathy identified. UPPER ABDOMEN: The liver demonstrates nodularity of the contour with heterogeneity of the parenchymal pattern that has an appearance suggestive of cirrhotic changes. There is mild diffuse decreased density of the liver felt to represent fatty infiltration with prominence of the caudate lobe. The spleen is diffusely enlarged which may reflect portal venous hypertension. OSSEOUS STRUCTURES: Mild degenerative changes thoracic spine. No destructive bony processes. IMPRESSION: 1. Interval clearing of the 12 mm nodular density left costophrenic angle as described above. 2. Stable mild centrilobular emphysematous changes as described above. 3. No evidence for pulmonary nodules on the current examination. 4. Mild multivessel coronary artery calcifications. 5. Cirrhotic changes of the liver with findings suggestive of portal venous hypertension as described above. Electronically Signed By: Jacky Braga M.D., Board Certified Radiologist Sign Date: 29-JUL-23 Naima Escobedo DO [address], [place], [address], [employer] 12/04/2023 11:54:03 Mammo, Screening, Tomosynthesis, Bilateral : INDICATION: Female 68 years. - Screening mammogram. TECHNIQUE: SCREENING 3D BILATERAL MAMMOGRAM WITH TOMOSYNTHESIS Bilateral CC and MLO views of the breasts were obtained. Digital breast tomosynthesis was performed in the CC and MLO planes. Computer aided detection (CAD) software was utilized. COMPARISON: Previous mammograms dated 12/04/2018. BREAST DENSITY: A: Almost entirely fatty MAMMOGRAM FINDINGS: There is no suspicious asymmetry. There is no distortion of the architecture. There are no suspicious groupings of microcalcifications. No abnormal skin thickening is noted. There is no abnormal nipple retraction. IMPRESSION: There are no suspicious mammographic findings. BI-RADS category: 1: Negative RECOMMENDATIONS: Annual screening mammogram. The patient will be notified of these findings as required by [place] law. Notes: -Mammography should be supplemented by routine clinical and monthly self exams. Any decision to biopsy should be based on clinical assessment, as malignancy may not be detectable by imaging alone. Electronically Signed By: Kwan Juarez D.O., Board Certified Radiologist Sign Date: 06-JAN-24 Naima Escobedo DO [address], [place], [address], [employer] 06/07/2024 11:40:42 Problems Name Problem SNOMED Code Status Onset Date Resolution Date Notes Provider Name and Address Organization Details Recorded Time Cirrhosis of liver 14073564 Active 2021 Not Available [employer] 3 19:50:42 Metabolic dysfunctio n-associat ed steatohepa titis 004177399 Active 2021 Not Available [employer] 3 19:50:42 Esophageal varices 74983199 Active 2021 Not Available [employer] 3 19:50:42 Type 2 diabetes mellitus 20440839 Active 2021 Not Available [employer] 3 19:50:42 Mixed hyperlipid emia 366999411 Active 2021 Not Available [employer] 3 19:50:42 Gastroesop hageal reflux disease 517578314 Active 2021 Not Available [employer] 3 19:50:42 Mixed anxiety and depressive disorder 912214306 Active 2021 Not Available [employer] 3 19:50:42 Iron deficiency anemia 33674677 Active 2021 Not Available [employer] 3 19:50:42 Ascites 971305950 Active 2022 Not Available [employer] 3 19:50:42 Acute urinary tract infection 719155454 Active 2022 Not Available [employer] 3 19:50:42 Kidney stone 90553074 Active 2022 Not Available [employer] 3 19:50:42 Flank pain 454095907 Active 2022 Not Available [employer] 3 19:50:42 Thrombocyt openic disorder 287482431 Active 2022 Not Available [employer] 3 19:50:42 Immunodefi ciency disorder 211832494 Active 2022 Not Available [employer] 3 19:50:42 Uncontroll ed type 2 diabetes mellitus 274049830 Active 2023 JAIRO MURRY MD [address] [facility] [address], [place], [address] , [facility] - [facility], [facility] 4 16:28:09 Pulmonary emphysema 20375611 Active [address] 2023 Naima Escobedo DO [address], [place], [address] , [facility] - [facility], [facility] 4 12:21:05 Atheroscle rosis of aorta 22472361 Active [address] 2023 Naima Escobedo DO [address] [facility] [address], [place], [address] , [facility] - [facility], [facility] 4 12:21:19 Multiple nodules of lung 457591018 Active [address] April 2023. Advising repeat imaging in 3 months, July 2023 Naima Escobedo DO [address] [facility] [address], [place], [address] , [facility] - [facility], [facility] 4 12:22:17 Interstiti al lung disease 641482832 Active 2023 Naima Escobedo DO [address] [facility] [address], [place], [address] , [facility] - [facility], [facility] 4 09:50:37 Coronary arterioscl erosis 31791511 Active [address] chest 2023 Naima Escobedo DO [address] [facility] [address], [place], [address] , [facility] - [facility], [facility] 4 10:02:19 Snoring 21691785 Active 2023 JAIRO MURRY MD [address], [place], [address] , [facility], [facility] 08:31:42 Problem Notes None recorded. Procedures Surgical History Date Name Laterality Status Provider Name and Address Organization Details Recorded Time 06/08/19 25 G2211 completed Naima Escobedo DO [address] [facility] [address], [place], [address], [facility], [facility] 06/07/2024 12:41:42 12/04/19 24 Quality Advanced Care Planning completed [facility], [facility] 12/04/2023 10:28:38 12/04/19 24 Quality Incontinence Screening [facility] 12/04/2023 10:28:38 12/04/19 24 Medicare AWV Subsequent completed [facility], [facility] 12/04/2023 10:28:38 04/19/19 23 FLEXIBLE CYSTOSCOPY (female) completed Jammie Agee [facility], [facility] 04/18/2022 12:08:45 04/12/19 23 bladder scan completed Bailey Hair [facility], [facility] 04/12/2022 10:35:25 04/22/19 20 Date of Last Mammogram completed [facility], [facility] 03/06/2021 09:42:36 04/22/19 20 mammography completed [facility], [facility] 03/06/2021 09:47:49 11/18/[address] [facility], [facility] 03/06/2021 09:48:32 02/17/19 19 Colonoscopy completed Naima Escobedo, [address], [address], [facility] 03/06/2021 11:05:[address] [facility], [facility] 03/06/2021 09:42:57 Biopsy [facility] 03/06/2021 09:42:57 Appendectomy completed [facility] 03/06/2021 09:42:57 Back surgery completed [facility] 03/06/2021 09:42:57 Hysterectomy [facility] 03/06/2021 09:42:57 Imaging Results None recorded. Procedure Notes None recorded. Medical Equipment None Reported. Allergies Allergen ID Allergen Name Allergen Category Reaction Reaction Severity Criticality Documentation Date Start Date Code Code System Note Provider Name and Address Organization Details Recorded Time [id number] Substance with sulfonami de structure and antibacte rial mechanism of action (substanc e) medicatio n nausea Not available Not available 03/06/2021 [id number] SNOMED Amaris Price [facility], [place] - [facility], [facility] 2 09:42:24 Medications Name Sig Start Date Stop Date Status Note LastModified by Organization Details LastModified Time methocarbam ol 500 mg tablet Take 500 mg 4 times a day by oral route. 06/14 completed Not Available Not Available Not Available Dilaudid 2 mg tablet 2 mg by oral route. 04/05 completed Not Available Not Available Not Available doxycycline hyclate 100 mg capsule TAKE ONE CAPSULE BY MOUTH TWICE DAILY FOR 7 DAYS WITH WATER. DO NOT TAKE ON AN EMPTY STOMACH 06/04 completed Not Available Not Available Not Available ropinirole 1 mg tablet TAKE 2 TABLETS BY MOUTH 1-3 HOURS PRIOR TO BEDTIME ONCE DAILY 90 03/05 completed Not Available Not Available Not Available torsemide 20 mg tablet TAKE 1 TABLET EVERY DAY BY ORAL ROUTE IN THE MORNING FOR 30 DAYS. active Not Available Not Available No t Available trazodone 50 mg tablet TAKE 1 TO 2 TABLET BY MOUTH. NIGHTLY NEEDED FOR INSOMNIA active Not Available Not Available No t Available azithromyci n 250 mg tablet TAKE 2 TABLETS BY MOUTH TODAY, THEN TAKE 1 TABLET DAILY FOR 4 DAYS DIRECTED active Not Available Not Available No t Available fluconazole 150 mg tablet TAKE 1 TABLET BY MOUTH EVERY DAY FOR 2 DAYS 11/27 completed Not Available Not Available Not Available benzonatate 200 mg capsule TAKE 1 CAPSULE BY MOUTH THREE TIMES A DAY NEEDED 06/14 completed Not Available Not Available Not Available sucralfate 1 gram tablet 06/04 completed Not Available Not Available Not Available ondansetron HCl 4 mg tablet TAKE 1 TABLET (4 MG TOTAL) BY MOUTH EVERY 6 (SIX) HOURS NEEDED FOR NAUSEA OR VOMITING 01/22 completed Not Available Not Available Not Available famotidine 40 mg tablet TAKE 1 TABLET BY MOUTH EVERY DAY IN THE EVENING 06/28 completed Not Available Not Available Not Available dexamethaso ne 6 mg tablet TAKE 1 TABLET BY MOUTH EVERY DAY FOR 10 DAYS 03/12 completed Not Available Not Available Not Available fluorouraci l 5 % topical cream APPLY TO PRE-CANCE RS TWICE DAILY FOR TWO WEEKS, THEN STOP. AVOID CONTACT WITH CHILDREN AND ANIMALS 12/03 completed Not Available Not Available Not Available sertraline 100 mg tablet TAKE 1 TABLET BY MOUTH EVERY DAY active Not Available Not Available No t Available simvastatin 10 mg tablet Take 10 mg by oral route. 04/19 completed Not Available Not Available Not Available glipizide ER 5 mg tablet, extended release 24 hr TAKE 1 TABLET BY MOUTH TWICE A DAY active Not Available Not Available No t Available Mobic 7.5 mg tablet Take 7.5 mg by oral route. 11/27 completed Not Available Not Available Not Available clobetasol 0.05 % topical cream APPLY TO AFFECTED AREAS TWICE DAILY FOR TWO WEEKS, THEN STOP. TWO WEEKS ON, TWO WEEKS OFF. 01/22 completed Not Available Not Available Not Available omeprazole 40 mg capsule,del ayed release TAKE 1 CAPSULE BY MOUTH EVERY DAY IN THE MORNING active Not Available Not Available No t Available ciclopirox 8 % topical solution APPLY TO AFFECTED NAILS AT NIGHT. 06/04 completed Not Available Not Available Not Available nadolol 20 mg tablet TAKE 1 TABLET BY MOUTH EVERY DAY active Not Available Not Available No t Available oxycodone-a cetaminophe n 5 mg-325 mg tablet TAKE 1 TABLET BY MOUTH EVERY 6 HOURS NEEDED FOR ACUTE POST OPERATIVE PAIN 03/05 completed Not Available Not Available Not Available vitamin A 3,000 mcg (10,000 unit) capsule TAKE 1 CAPSULE (3,000 MCG TOTAL) BY MOUTH DAILY. 12/03 completed Not Available Not Available Not Available omeprazole 10 mg capsule,del ayed release Take 40 mg by oral route. 04/19 completed Not Available Not Available Not Available trazodone 100 mg tablet TAKE 1 TABLET BY MOUTH EVERYDAY AT BEDTIME 06/07 completed Not Available Not Available Not Available ropinirole 2 mg tablet Take 2 tablets every day by oral route at bedtime. 2024 active Not Available Not Available Not Avai lable cephalexin 500 mg capsule TAKE 1 CAPSULE BY MOUTH TWICE A DAY FOR 7 DAYS 03/12 completed Not Available Not Available Not Available simvastatin 20 mg tablet TAKE 1 TABLET BY MOUTH EVERY DAY active Not Available Not Available No t Available erythromyci n 5 mg/gram (0.5 %) eye ointment APPLY THIN LAYER TO AFFECTED AREA TWICE A DAY 06/04 completed Not Available Not Available Not Available ferrous sulfate 325 mg (65 mg iron) tablet Take 1 tablet every other day by oral route. 06/04 completed Not Available Not Available Not Available metformin 1,000 mg tablet TAKE 1 TABLET BY MOUTH TWICE A DAY WITH MEALS 06/07 completed Not Available Not Available Not Available Cipro 500 mg tablet Take 1 tablet prior to procedure in office 04/19 completed Not Available Not Available Not Available ropinirole 0.5 mg tablet TAKE 2 TABLETS BY MOUTH 1-3 HOURS BEFORE BEDTIME 03/12 completed Not Available Not Available Not Available dexamethaso ne 4 mg tablet TAKE 1 TABLET BY MOUTH WITH FOOD TWICE A DAY FOR 7 DAYS 03/12 completed Not Available Not Available Not Available sertraline 25 mg tablet TAKE 1 TABLET ONCE DAILY 06/07 completed Not Available Not Available Not Available omeprazole 20 mg capsule,del ayed release TAKE 3 CAPSULES BY MOUTH TWICE A DAY 06/07 completed Not Available Not Available Not Available cephalexin 500 mg tablet Take 1 tablet prior to procedure in office 04/19 completed Not Available Not Available Not Available hydroxyzine HCl 25 mg tablet TAKE 1 TABLET BY MOUTH EVERY 8 HOURS NEEDED FOR ITCHING 03/05 completed Not Available Not Available Not Available mupirocin 2 % topical ointment APPLY TO SITE THREE TIMES DAILY UNTIL STITCHES ARE REMOVED 06/07 completed Not Available Not Available Not Available furosemide 20 mg tablet TAKE 1 TABLET BY MOUTH EVERY DAY active Not Available Not Available No t Available levofloxaci n 500 mg tablet TAKE 1 TABLET BY MOUTH EVERY DAY FOR 7 DAYS 11/27 completed Not Available Not Available Not Available estradiol 0.01% (0.1 mg/gram) vaginal cream APPLY CREAM TO PER URETHRA ONCE A NIGHT FOR 4 WEEKS, THEN TWICE A WEEK 05/28 completed Not Available Not Available Not Available methylpredn isolone 4 mg tablets in a dose pack TAKE 6 TABLETS ON DAY 1 DIRECTED ON PACKAGE AND DECREASE BY 1 TAB EACH DAY FOR A TOTAL OF 6 DAYS 03/12 completed Not Available Not Available Not Available albuterol sulfate HFA 90 mcg/actuati on aerosol inhaler INHALE 2 PUFFS INTO THE LUNGS EVERY 6 HOURS NEEDED. 2023 active Not Available Not Available Not Avai lable ondansetron 4 mg disintegrat ing tablet DISSOLVE 1 TABLET ON THE TONGUE AND EVERY 4 HOURS NEEDED FOR NAUSEA 30 DAY(S) 12/03 completed Not Available Not Available Not Available metformin ER 500 mg tablet,exte nded release 24 hr TAKE 1 TABLET BY MOUTH WITH BREAKFAST AND TAKE 2 TABLETS BY MOUTH WITH DINNER active Not Available Not Available No t Available sertraline 50 mg tablet TAKE 1 TABLET BY MOUTH EVERY DAY 06/07 completed Not Available Not Available Not Available dicyclomine 10 mg capsule 1 OR 2 CAPSULES ORALLY EVERY 6 HOURS NEEDED FOR ABDOMINAL CRAMPS/DI SCOMFORT 30 DAY(S) 12/03 completed Not Available Not Available Not Available spironolact one 50 mg tablet TAKE 1 TABLET BY MOUTH EVERY DAY active Not Available Not Available No t Available diazepam 5 mg tablet TAKE 1 TABLET BY MOUTH EVERY DAY NEEDED USE SPATINGLY DISCUSSED WITH PCP active Not Available Not Available No t Available amoxicillin 875 mg-potassiu m clavulanate 125 mg tablet TAKE ONE TABLET BY MOUTH EVERY 12 HOURS DIRECTED FOR 7 DAYS 04/19 completed Not Available Not Available Not Available vitamin A palmitate 3,000 mcg (10,000 unit) capsule TAKE 1 CAPSULE BY MOUTH EVERY DAY active Not Available Not Available No t Available Premarin 0.9 mg tablet 0.9 mg by oral route. 04/05 completed Not Available Not Available Not Available lactulose 10 gram/15 mL oral solution TAKE 15 ML BY MOUTH DAILY 12/03 completed Not Available Not Available Not Available vitamin A 01/22 completed Not Available Not Available Not Available BD Insulin Syringe Ultra-Fine 0.5 mL 30 gauge x 1/2 INJECT INSULIN 3 TIMES DAILY E11.65 active Not Available Not Available No t Available ferrous sulfate 324 mg (65 mg iron) tablet,hilda yed release TAKE 1 TABLET (65 MG OF IRON TOTAL) BY MOUTH DAILY INDICATIO NS: ANEMIA FROM INADEQUAT E IRON. 04/21 /2025 completed Not Available Not Available Not Available omeprazole 20 mg tablet,hidla yed release Take 20 mg every day by oral route. 01/22 completed Not Available Not Available Not Available Slow Fe 142 mg (45 mg iron) tablet,exte nded release Take 1 tablet every day by oral route. 11/27 completed Not Available Not Available Not Available Xifaxan 550 mg tablet Take 1 tablet twice a day by oral route. 03/05 completed Not Available Not Available Not Available lactulose 20 gram/30 mL oral solution TAKE 30 ML (20 G TOTAL) BY MOUTH DAILY. 12/03 completed Not Available Not Available Not Available True Metrix Glucose Test Strip TAKE 1 STRIP 3 TIMES A DAYE11. 65 active Not Available Not Available No t Available Tresiba FlexTouch U-200 insulin 200 unit/mL (3 mL) subcutaneou s pen INJECT 40 UNITS UNDER THE SKIN ONCE DAILY *ROTATE INJECTION SITES 06/07 completed Not Available Not Available Not Available [employer] FlexTouch U-100 insulin 100 unit/mL (3 mL) subcutaneou s pen INJECT 30 UNITS EVERY DAY BY SUBCUTANE OUS ROUTE IN THE EVENING FOR 90 DAYS. active Not Available Not Available No t Available Fiasp FlexTouch U-100 Insulin 100 unit/mL (3 mL) subcutaneou s pen 10- 25 UNITS 4 TIMES DAILY BASED ON BLOOD SUGAR AND PLANNED CARBOHYDR ATE INTAKE. active Not Available Not Available No t Available Admelog U-100 Insulin lispro 100 unit/mL subcutaneou s solution active Not Available Not Available N ot Available Eliquis DVT-PE Treatment 30-Day Starter 5 mg (74 tablets) in dose pack USE DIRECTED PER STARTER KIT 03/05 completed Not Available Not Available Not Available BD Stella 2nd Gen Pen Needle 32 gauge x 5/32 USE 4 TIMES A DAY 2024 active Not Available Not Available Not Avai lable metformin ER 500 mg/5 mL oral suspension, extended release Take 500 mg twice a day by oral route. 04/19 completed Not Available Not Available Not Available Lyumjev KwikPen U-100 Insulin 100 unit/mL subcutaneou s 1 units for every 5 g of carbs, correctio factor 1:25 mg/dl, up to 80 units daily 12/03 completed Not Available Not Available Not Available Paxlovid 300 mg (150 mg x 2)-100 mg tablets in a dose pack Take 1 dose pk by oral route as directed. 02/27 completed Not Available Not Available Not Available Vitals Date Recorded Body height Body mass index (BMI) Body weight Heart rate Oxygen saturation Oxygen saturation in Arterial blood by Pulse oximetry Respiratory rate Systolic And Diastolic Provider Name and Address Organization Details Last Updated DateTime 5 160.02 cm 28.3 kg/m2 81804.7 8 g 67 /min 95 % 95 % 17 /min 120/68 mm[Hg] [facility] 5 11:34:21 Date Recorded Body height Body mass index (BMI) Body weight Oxygen saturation Oxygen saturation in Arterial blood by Pulse oximetry Heart rate Respiratory rate Systolic And Diastolic Provider Name and Address Organization Details Last Updated DateTime 4 160.02 cm 30.1 kg/m2 96000.7 g 97 % 97 % 73 /min 18 /min 136/80 mm[Hg] [facility] 4 10:38:31 Social History Question Answer Notes LastModified by Organizat ion Details LastModified Time Tobacco Smoking Status Former Smoker [facility] 04/19/2022 10:43:02 Do You Have An Advance Directive? Yes Information not available 04/19/2022 Are You Currently Sexually Active With Anyone Who Has Traveled (within The Last 12 Weeks) To A Zika-affected Area? No API-27 Information not available 03/05/2023 Is Blood Transfusion Acceptable In An Emergency? Yes Information not available 03/06/2021 What Is Your Level Of Caffeine Consumption? None Information not available 04/19/2022 How Much Tobacco Do You Chew? None Information not available 04/12/2022 In The 14 Days Before Symptom Onset, Have You Had Close Contact With A Laboratory-confir med COVID-19 While That Case Was Ill? No API-27 Information not available 03/05/2023 In The 14 Days Before Symptom Onset, Have You Had Close Contact With A Person Who Is Under Investigation For COVID-19 While That Person Was Ill? No API-27 Information not available 03/05/2023 Have You Been To An Area Known To Be High Risk For COVID-19? No API-27 Information not available 03/05/2023 What Type Of Diet Are You Following? REGULAR Information not available 04/19/2022 Which Illicit Or Recreational Drugs Have You Used? No Information not available 03/06/2021 Have You Processed Blood Or Body Fluids From An Ebola Virus Disease Patient Without Appropriate PPE? No API-27 Information not available 03/05/2023 Do You Reside In Or Have You Traveled To An Area Where Ebola Virus Transmission Is Active? No API-27 Information not available 03/05/2023 What Is The Highest Grade Or Level Of School You Have Completed Or The Highest Degree You Have Received? [id number] Information not available 04/19/2022 When Did You Quit Smoking? 16+yearssin cat lentz API-27 Information not available 03/05/2023 Do You Smoke? No Information not available 03/12/2022 What Was The Date Of Your Most Recent Tobacco Screening? 05/29/2023 Information not available 05/29/2023 What Is Your Relationship Status? Information not available 04/19/2022 Do You Use Your Seat Belt Or Car Seat Routinely? Yes API-27 Information not available 03/05/2023 Are You Sexually Active? No Information not available 04/12/2022 At What Age Did You Start Smoking Tobacco? 13 Information not available 04/12/2022 How Much Tobacco Do You Smoke? 1 PPD Information not available 04/12/2022 Has Tobacco Cessation Counseling Been Provided? No Information not available 12/04/2023 Sex: Female Functional Status Question Answer Note LastModified by Organizat ion Details LastModified Time Do you use any illicit or recreational drugs? No API-27 Information not available 03/05/2023 Do you or have you ever used any other forms of tobacco or nicotine? No API-27 Information not available 03/05/2023 What is your level of alcohol consumption? None Information not available 04/12/2022 Do you or have you ever used smokeless tobacco? Never used smokeless tobacco Information not available 03/06/2021 Are you currently employed? No API-27 Information not available 03/05/2023 Do you have transportation difficulties? No API-27 Information not available 03/05/2023 Are you able to care for yourself? Yes API-27 Information n ot available 03/05/2023 What is your exercise level? Moderate Information not available 04/19/2022 Mental Status None recorded. Family History Relationship Description Onset Age of this Age Resolved Age Notes LastModified by Organization Details LastModified Time Mother Squamous cell carcinoma API-27 Not available 2022 11:56:13 Mother Hypertensive disorder Not available 2021 09:42:30 Mother Arthritis API-27 Not available 04/18/2022 11:56:14 Mother Congestive heart failure Not available 2021 09:42:30 Mother Heart disease Not available 2021 09:42:30 Father Congestive heart failure Not available 2021 09:42:30 Father Heart disease Not available 2021 09:42:30 Father Alcoholism Not availabl e 03/06/2021 09:42:30 Brother Alcoholism Not availab le 03/06/2021 09:42:30 Brother Psoriasis API-27 Not available 04/18/2022 11:56:14 Brother Hypertensive disorder Not available 2021 09:42:30 Brother Heart disease Not available 2021 09:42:30 Sister Migraine API-27 Not available 0 04/18/2022 11:56:14 Sister Hypertensive disorder Not available 2021 09:42:30 Sister Heart disease Not available 2021 09:42:30 Sister Basal cell carcinoma of skin API-27 Not available 2022 11:56:14 Sister Alcoholism Not availabl e 03/06/2021 09:42:30 Medical History Condition Response Back pain Y Nerve Damage / Neuropathy Y Arthritis Y Urinary Problems Y High Cholesterol Y Measles/Mumps Y Cirrhosis Y Headaches/Migraines Y Depression Y Chicken Pox Y Gynecological History Statement/Question Response Menses Monthly N STIs/STDs N If Post Menopausal, Age at Menopause 34 Date of Last Mammogram 04/22/2019 Age at First Child 17 Obstetrics History GPAL:G 0 P 0 0 0 0 Immunizations Vaccine Type Date Status Note Provider Nam e and Address Organization Details Recorded Time Influenza, high-dose, quadrivalent, PF 2 completed [facility] 01/22/2022 16:05:35 Influenza, adjuvanted, quadrivalent, PF 3 completed Amaris Ruple [facility], [facility] 11/27/2022 21:56:50 Pneumococcal conjugate PCV20, polysaccharide [id number] conjugate, adjuvant, PF 3 [facility] 11/27/2022 21:56:51 Influenza, high-dose, trivalent, PF 4 completed Naima Escobedo, DO [address] [facility] [address], [place], [address], [facility], [facility] 12/04/2023 11:54:16 Influenza, split virus, quadrivalent, preservative 1 completed [facility] 11/27/2022 10:34:41 COVID-19, mRNA, LNP-S, PF, 100 mcg/0.5mL dose or 50 mcg/0.25mL dose 1 completed [facility] 11/27/2022 10:34:41 COVID-19, mRNA, LNP-S, PF, 100 mcg/0.5mL dose or 50 mcg/0.25mL dose 1 completed [facility] 11/27/2022 10:34:41 zoster recombinant 0 completed [facility] 11/27/2022 10:34:41 COVID-19, mRNA, LNP-S, PF, 100 mcg/0.5mL dose or 50 mcg/0.25mL dose 1 completed Amaris Dee garcia [facility], [facility] 11/27/2022 10:34:41 zoster recombinant 3 completed Amaris Dee garcia, [facility], [facility] 11/27/2022 10:34:41 Past Encounters Encounter ID Performer Location Encounter Start Date Encounter Closed Date Diagnosis/Indication Diagnosis SNOMED-CT Code Diagnosis ICD10 Code Diagnosis Note [id number] Naima Escobedo [place] [facility] [place] [address] [place] [address] 03/06/2021 09:21:49 03/06/2021 11:16:36 Increased body mass index 56919504 Z68.28 elevated BMI. Discussed diet and better therapeuti c lifestyle changes. Diet education 80349842 Z71.3 as above Cirrhosis of liver 21420 007 K74.60 Esophageal varices 14721 008 I85.00 Recent banding done by [facility] in [facility]. 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 Denies heavy alcohol use. Currently being evaluated for possible transplant in the remote future. Continue nadolol 20 mg p.o. daily to reduce portal hypertensi on. Gastroesop hageal reflux disease 095308746 K21.9 Currently on omeprazole 20 mg p.o. daily. Chronic condition. Continue therapy. Mixed anxi ety and depressive disorder 604272547 F41.8 Patient previously started on sertraline 25 mg p.o. daily for mild depression /anxiety. Tolerating medication without issue. Continue therapy. Mixed hyperlipidemia 267 689837 E78.2 For now, continue 20 mg simvastati n p.o. daily. Consider more aggressive therapy if LDL not well controlled . Metabolic dysfunction-associate d steatohepatitis 768474261 K75.81 With resultant cirrhosis. See above and HPI for further informatio n. Type 2 daljit betes mellitus 02538331 E11.65 New diagnosis and unknown to patient. See HPI for further informatio n. Patient should attended diabetic education course. We have started her on metformin twice daily and will recheck her blood work in 3 months prior to her next appointmen jesus Banerjee need more aggressive lipid control and an increase in metformin at follow-up depending on her response to low-dose. Iron defic iency anemia 98547331 D50.9 [id number] DO EDU Castro [address] [facility] [address] [facility] [place] [address] 06/04/2021 10:40:03 06/04/2021 11:32:49 Type 2 diabetes mellitus 08022955 E11.65 A1c improved. Down to 7.6 (previousl y 8.2). Will increase metformin to 1000 mg p.o. twice daily. Patient will follow-up with her PCP in [facility] over the summer. Labs also ordered to be done prior to her inter follow-up. Esophageal varices 32545 008 I85.00 Recent banding done by [facility] in [facility]. 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 Denies heavy alcohol use. Currently being evaluated for possible transplant in the remote future. Continue nadolol 20 mg p.o. daily to reduce portal hypertensi on. Gastroesop hageal reflux disease 650968052 K21.9 Currently on omeprazole 20 mg p.o. daily. Chronic condition. Continue therapy. Iron defic iency anemia 99577978 D50.9 Patient reports that she has been advised in the past that she has iron deficiency . However she stopped iron for unknown reason. Advised she resume iron. Reports that had colonoscop y 2 years ago that was normal with no concerning findings and denies any known source of bleeding. No hemorrhoid s, vaginal bleeding, hematuria or dark tarry stools. Mixed anxi ety and depressive disorder 156551756 F41.8 Patient previously started on sertraline 25 mg p.o. daily for mild depression /anxiety. Tolerating medication without issue. Continue therapy. Uses diazepam rarely and sparingly for increased anxiety episodes. Pain of ri ght hip joint 4202201896 56961 M25.551 Longstandi ng issue. Has had corticoste roid injections in the past. Reports pain is more lateral and worse after sitting for extended periods of time. Also pain when climbing stairs. Signs symptoms, consistent with trochanter ic bursitis. May benefit from localized injection and I have informed her that corticoste roid injections may cause elevations in her blood glucose. [id number] Naima Escobedo DO [facility] [address] [facility] [address] [facility] [place] [address] 01/22/2022 10:06:43 01/22/2022 11:22:43 Type 2 diabetes mellitus 34532686 E11.65 Patient does report she has decreased her metformin down from 2 tabs twice daily down to 1 tab daily. Taking her total dose from 2000 mg down to 500 mg/day. Her A1c previously was 7.6. Today, returns at 7.2. Minor adjustment s were made and patient was advised to increase metformin to 500 mg p.o. twice daily. Of note, patient reports she previously decreased her dose due to GI side effects and was advised to do so by her gastroente rologist. We will have her back in the office in May with labs done prior to that appointmen t. Mixed anxi ety and depressive disorder 971200101 F41.8 Patient previously started on sertraline 25 mg p.o. daily for mild depression /anxiety. Tolerating medication without issue. Continue therapy. Uses diazepam rarely and sparingly for increased anxiety episodes. Refills of diazepam placed. Continue rare and cautious use and check labs. Influenza vaccine needed [id number] 106 Z23 Due for flu vaccine. Administer ed. Gastroesop hageal reflux disease 226382791 K21.9 Chronic. Uncontroll ed. Patient reports worsening symptoms. Will increase omeprazole to 40 mg p.o. daily. Pain of bi lateral hip joints [id number] 3107108 M25.551 M25.552 Patient was referred to orthopedic s previously but has not yet seen them. Reports that she went out of town prior to make an appointmen t. New referral placed. Nola young chronic issue that has worsened over the last several months/angeles paz [id number] Naima Escobedo DO [facility] [address] [facility] [address] [facility] [address] [place] [address] 01/30/2022 09:41:27 01/30/2022 10:11:25 Dysuria 77805922 R30.0 Initially, when this appointmen t was made yesterday, patient reported having some concerns with dysuria. However, since that time, patient reports that she has progressed with symptoms. Has been having issues with shortness of breath, cough, fever (101 degree), increased malaise and fatigue. No recent sick contacts. Does have some concern as she is scheduled to fly out later this afternoon. No recent sick contacts. Her in office urinalysis is only minimally concerning with small amounts of blood and leukocyte esterase. For now, will treat for coverage of both UTI and possible URI. Patient allergic to Bactrim. Will use Cipro. Additional ly, given her upcoming travel plans and new symptomolo gy, will get flu and COVID testing today. Cough 48740439 R05.9 See above. [id number] Naima Escobedo DO [facility] [address] [facility] [address] [facility] [place] [address] 02/27/2022 10:53:54 02/27/2022 12:51:00 Type 2 diabetes mellitus 73357527 E11.65 Patient does report she has decreased her metformin down from 2 tabs twice daily down to 1 tab daily. Taking her total dose from 2000 mg down to 500 mg/day. Her A1c previously was 7.6. Today, returns at 7.2. Minor adjustment s were made and patient was advised to increase metformin to 500 mg p.o. twice daily. Of note, patient reports she previously decreased her dose due to GI side effects and was advised to do so by her gastroente rologist. We will have her back in the office in May with labs done prior to that appointmen t. Will need to monitor glucoses closely given her use of Medrol. Esophageal varices 72029 008 I85.00 Recent banding done by [facility] in [facility]. 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 Denies heavy alcohol use. Currently being evaluated for possible transplant in the remote future. Continue nadolol 20 mg p.o. daily to reduce portal hypertensi on. Cirrhosis of liver 007 K74.60 This is a result of nonalcohol ic fatty liver disease. Currently being followed and monitored by [facility]. Her cirrhosis may be contributi ng to her diffuse and extensive symptoms today's appointmen t. However, further work-up ordered as noted to rule out other possible concerning factors. Chronic cough 00275535 R 05.3 Recent chest x-ray with abnormalit ies concerning for possible interstiti al disease/in fection. Patient's symptoms are rather vague today and nonspecifi c. However, given her bilateral thoracic pain, pneumonia may be contributi ng. She has recently completed multiple rounds of antibiotic s. We started another round today along with Medrol. We will review CT once available. Recurrent urinary tract infection 711410242 N39.0 Possibly contributi ng to her malaise and fatigue. She has had multiple UTIs in the recent past. Would like her to establish with local urology. May need cystoscopy given continued issues with hematuria. Muscle spa sm of thoracic back 9980610759 58797 M62.830 Possibly related to musculoske letal pain. However, need to rule out any infectious etiology. CT chest has been ordered. Metabolic dysfunction-associate d steatohepatitis 973562965 K75.81 With resultant cirrhosis. See above and HPI for further informatio n. [id number] Naima Escobedo, DO [facility] [address] [facility] [address] [facility] [place] [address] 03/12/2022 12:30:35 03/12/2022 13:28:05 Ascites 415026409 R18.8 Unfortunat e 66-year-ol d female with history of nonalcohol ic fatty liver disease which progressed dentist cirrhosis comes in for follow-up. She has been in multiple times recently for a multitude of complaints including increased fatigue, back pain, edema, cough and malaise. Extensive work-up was performed including CT chest, ultrasound abdomen, chest x-ray and abundant lab work with multiple findings including cirrhosis, portal hypertensi on, splenomega ly, noted ascites secondary to cirrhosis as well as incidental finding of lung nodule. Prior to today's appointmen t patient was placed on a short course of torsemide to help with the edema and the ascites. She has lost roughly 6 pounds with 3 days dosing. She continues to have lower extremity edema as well as noted ascites on imaging. Today, we discussed most common diuretics for cirrhotic patients. We will start daily spironolac tone. She was encouraged to contact her cirrhosis specialist at [facility] as well. She was provided copies of lab work as well as imaging to take to that appointmen t. We will recheck a CMP in 2 weeks to check for any electrolyt e abnormalit ies or renal insufficie ncy. Metabolic dysfunction-associate d steatohepatitis 855302454 K75.81 With resultant cirrhosis. See above and HPI for further informatio n. Cirrhosis of liver 007 K74.60 This is a result of nonalcohol ic fatty liver disease. Currently being followed and monitored by [facility]. Her cirrhosis may be contributi ng to her diffuse and extensive symptoms noted at previous appointmen t. Patient does report some improvemen t with 3-day course of torsemide. We have elected to transition to spironolac tone on a daily basis. Labs have been ordered to recheck in 2 weeks. See above Nodule of lung 411421368 R91.[address] chest. Recommenda tion for 1 year follow-up to monitor. Ordered. Thoracic back pain 93155 8004 M54.6 Ongoing issue. Patient did improve while on Medrol. However, would like to avoid chronic or excessive steroids. Patient was advised to try methocarba mol which had been prescribed previously . Update the office with any improvemen t or lack thereof. Consider pain management referral. [id number] MD EDU GIMENEZ [place] [address] [facility] [address] [facility] [place] [address] 04/12/2022 10:07:25 04/12/2022 13:15:41 Acute urinary tract infection 295935538 N39.0 New, WorseningP atient states that she has recently had multiple urinary tract infections x 1 year. She notes that all of these infections are typically proven with urine cultures. Most recently, she has on 4 consecutiv e abx, a different antibiotic each week with no improvemen t. When having a UTI, her symptoms include suprapubic pain and urgency. She was recently admitted to [facility] 03/2022, was found to have a UTI at that time also and treated with IV abx, Rocephin. She was discharged home with Amoxicilli n, but has not yet been able to take it secondary to the pharmacy having a shortage. Urine today still positive. UTIs are not relating to timing of intercours e per patient. Patient denies constipati on. PVR unremarkab le 04/12/2022 . Denies any gross hematuria, fever, nausea or vomiting. Pt does c/o flank tenderness , L>R. Some chills intermitte ntly. Ucx 04/05/2022 - positive for klebsiella CT abd/pelv 04/05/2022 - negative. Pt to begin Amoxicilli n as prescribed by hospital, nahomi mitchell her pharmacy is out of this medication . I will give them a paper copy of prescripti on to find an appropriat e pharmacy that is having this medicine in stock. Urine will be sent for culture today to review. Patient needs cystoscopy to evaluate bladder, recommend to r/o atrophy as well. Patient was given all signs of alarm and alert. Was instructed to call the office or go to the nearest emergency room. Kidney stone 38783415 N2 0.0 Chronic, ResolvedPa bennie has a history of kidney stones, last episode x 1 year ago. Typically always pass on their own, no prior surgery. will benefit from metabolic evaluation in the future. Urgent josé miguel cristina to urinate 03114906 R39.15 Chronic, StablePati ent notes sense of urgency at her baseline when she is not having an infection. Denies frequency or leakage. Denies bladder irritants. Denies any recent neurologic al diagnosis. Pt wants us to be aware that she has cirrhosis of the liver, and blood clots. Will benefit from VD after resolution of infection for further evaluation . Flank pain 934575254 R10 .9 New, WorseningP atient states that she has had bilateral flank tenderness intermitte ntly x 2 years. L>R. Worse when she has UTI. Renal Function, CT Abd/Pelv WNL 03/2022. [id number] JACQUI VILLANUEVA-MD EDU [place] [address] [facility] [address] [address] [facility] [place] [address] 04/18/2022 11:56:09 04/18/2022 12:42:45 Acute urinary tract infection 187587663 N39.0 New, Resolved Ucx 04/05/2022 - positive for klebsiella CT abd/pelv 04/05/2022 - negative. completed ABxfeels better Kidney stone 63224954 N2 0.0 Chronic, ResolvedPa bennie has a history of kidney stones, last episode x [address] scan 03/2022 negative for stones Flank pain 008030193 R10 .9 New, ImprovingP atient states that she has had bilateral flank tenderness intermitte ntly x 2 years. L>R. Worse when she has UTI. Renal Function, CT Abd/Pelv WNL 03/2022. Urgent josé miguel cristina to urinate 70867369 R39.15 Chronic, StablePati ent notes sense of urgency at her baseline when she is not having an infection. Denies frequency or leakage. Denies bladder irritants. Denies any recent neurologic al diagnosis. Pt wants us to be aware that she has cirrhosis of the liver, and blood clots. Pelvic lori or dysfunction 492192674 M62.9 Chronic, WorseningP atient will do pelvic floor exercises, behavioral modificati on, medical therapy, conservati ve therapy, if no improvemen t the patient will need pelvic floor therapy Spasm 62643406 M62.838 Chronic, Worsening Anal spasm 01301133 K59. 4 Chronic, Worsening Atrophic vaginitis 74881 000 N95.2 Chronic, Worsening [id number] [place] [address] [facility] [address] [facility] [place] [address] 04/19/2022 10:31:38 04/19/2022 11:30:12 Type 2 diabetes mellitus [id number] E11.65 66-year-ol d female with a complicate d medical history that includes cirrhosis of the liver with ascites (secondary to nonalcohol ic steatosis) , type 2 diabetes, GERD and hyperlipid emia comes in for follow-up. Previously , A1c slightly above goal at 7.2. Patient had been improving up to that point and was advised to continue with current metformin dose of 1 tab p.o. twice daily. Today, in the office, her A1c climbed slightly to the 7.3. We have increased metformin from 1 tab p.o. twice daily up to 1 tab p.o. every morning and 2 tabs p.o. nightly (patient does report she has been eating more Posta at dinner). [place] She can see me in the fall as scheduled. Cirrhosis of liver 007 K74.60 This is a result of nonalcohol ic fatty liver disease. Currently being followed and monitored by [facility]. Her cirrhosis may be contributi ng to her diffuse and extensive symptoms noted at previous appointmen ts.Patient has continued on spironolac tone and torsemide. Her ascites is vastly improved and her weight is down. She does have an appointmen t to follow-up with [place] next week. Will be there for 3 days. Ascites [id number] R18.8 This has improved with the addition of spironolac tone and torsemide. Again, she will be following up with [facility]. She does report that her physician there has recommende d she consider transplant list which she will discuss further at next appointmen t with them. Esophageal varices 23886 008 I85.00 Recent banding done by [facility] in [facility]. Chronic. Stable. Mixed anxi ety and depressive disorder [id number] F41.8 Patient previously started on sertraline 25 mg p.o. daily for mild depression /anxiety. Tolerating medication without issue. Continue therapy. Uses diazepam rarely and sparingly for increased anxiety episodes. Chronic. Stable at this point. Metabolic dysfunction-associate d steatohepatitis [id number] K75.81 With resultant cirrhosis. See above. Recent hospitaliz ation with portal thrombosis . Was started on Eliquis and is aware that she has increased risk of bleeding due to her esophageal varices. [id number] Naima Escobedo DO [facility] [address] [facility] [address] [facility] [address] [place] [address] 06/14/2022 08:09:16 06/14/2022 09:15:25 Thrombocytopenic disorder [id number] D69.6 Very likely secondary to her liver disease. Chronic issue stable at this time. We will continue monitoring . Immunodefi ciency disorder 966941644 D84.81 Again, secondary to her chronic liver disease. Continues to follow-up with gastroente rology as well as specialist at [facility]. Ascites 816866378 I85.00 This has improved with the addition of spironolac tone and torsemide. Again, she will be following up with [facility]. She does report that her physician there has recommende d she consider transplant list which she will discuss further at next appointmen t with them. Cirrhosis of liver 007 K74.60 This is a result of nonalcohol ic fatty liver disease. Currently being followed and monitored by [facility]. Her cirrhosis may be contributi ng to her diffuse and extensive symptoms noted at previous appointmen ts.Patient has continued on spironolac tone and torsemide. Her ascites is vastly improved and her weight is down. She does have an appointmen t to follow-up with [place] next week. Will be there for 3 days. Insomnia [id number] G47.0 1 Patient reports this has been an issue for the last several months. She will have bouts of insomnia that last for 3 to 4 days. Then periods with good sleep. She reports that she feels as though her anxiety and depression are very well controlled on her low-dose sertraline . She is also on Requip for her restless legs which she finds helpful but does not always put her to sleep. She has tried over-the-c ounter Tylenol PM but finds this makes her drowsy the following day. We discussed her complicate d history and concern due to hepatic impairment . Caution for polypharma cy given her multiple medication s and liver disease. For now, we will try with very low-dose trazodone and she will keep us posted on progress. She was instructed to take this on a as needed basis. [id number] Naima Escobedo DO [facility] [address] [facility] [address] [facility] [place] [address] 11/27/2022 10:17:26 11/27/2022 11:09:56 Mixed hyperlipidemia 171624199 E78.2 For now, continue 20 mg simvastati n p.o. daily. Consider more aggressive therapy if LDL not well controlled . Type 2 daljit betes mellitus 35473501 E11.65 67-year-ol d female comes in today for follow-up. Seasonal resident from [facility] that continues to follow-up with her PCP and specialist in [facility] as well. Also, continues to follow-up with her physician at [facility] for her nonalcohol ic fatty liver disease/ci rrhosis. Unfortunat paula, patient reports that her A1c done roughly 1 week ago returned at 12. She was advised by her liver specialist to get her sugars under control. She is uncertain why her glucoses climbed this much. Currently only on metformin. Previous A1c done in [place] was 7.3. We discussed the importance of glucose control. Especially given her fatty liver disease. For now, medication adjustment s were made, she was referred to diabetic education course and endocrinol hever. We will have her back in the office in 3 months for A1c and other lab follow-up. Likely she will not get endocrinol ogy appointmen t for the next 4 to 5 months. Influenza vaccine needed [id number] 106 Z23 Due for flu vaccine. Administer ed. Administra tion of pneumococcal vaccine [id number] Z23 Due for Prevnar 20. Administer ed. Cirrhosis of liver 007 K74.60 This is a result of nonalcohol ic fatty liver disease. Currently being followed and monitored by [facility]. Her cirrhosis may be contributi ng to her diffuse and extensive symptoms noted at previous appointmen ts.Patient has continued on spironolac tone and torsemide. Her ascites is vastly improved and her weight is down. Recent [place] visit reviewed and scanned into chart.Abigail ent was advised to start Xifaxan. However, she is not certain whether or not she is taking this medication . Encouraged her to update us with progress. Metabolic dysfunction-associate d steatohepatitis 292999500 K75.81 With resultant cirrhosis. Was previously started on Eliquis. However, at today's appointmen t she is uncertain whether or not she is continuing this medication . I have encouraged her to contact the office after she returns home to update us with an accurate medication list. This may have been discontinu ed by her specialist . Thrombocyt openic disorder 959002493 D69.6 Very likely secondary to her liver disease. Chronic issue stable at this time. We will continue monitoring . Atheroscle rosis of aorta 60686206 I70.0 This was noted on previous imaging. February 2022. Continue with blood pressure and lipid lowering therapies. [id number] JAIRO MURRY MD [facility] [address] [facility] [place] [address] 03/05/2023 09:26:46 03/06/2023 07:24:05 Uncontrolled type 2 diabetes mellitus [id number] E11.65 Patient has uncontroll ed type 2 diabetes her A1c is 9.1% and her fasting glucose elevated. Discussed A1C goals with the patient and the need to continue monitoring blood glucose. The goal is to have an A1C below 7%. Fasting glucose 80-130 mg/dl, 2h after meals < 180 mg/dl. More than 70 % within target range.Disc ussed that having an A1C below 7% can help prevent residential diabetes related complicati ons or progressio n of already existing complicati ons including nephropath y, retinopath y and peripheral neuropathy . Patient educated that an A1C level can be falsely low if a patient has anemia, has had a recent blood transfusio n, hemoglobin opathies, hypoglycem ia.Patient has liver cirrhosis she is at high risk for hypoglycem ia. I will do a continuous glucose monitor trial today to assess the therapy. I will also check a fasting glucose and a C-peptide to assess for insulin deficiency . Patient has contraindi cation for pioglitazo ne. We might consider a GLP-1 RA therapy after sensor data. Patient was extensivel y educated about diet, healthy plate, label readings, carbohydra ang counting, pamphlets provided. Patient was advised to decrease carbohydra ang to 45 g per meal, 15 g per snack. Patient educated about insulin action, duration and natural history of diabetes. Importance of finger stick check and log discussed with patient. Compliance with medication s discussed with patient. Hypoglycem ia signs, symptoms and management discussed with patient. Pamphlets provided. Weight loss and exercise discussed with patient. Cirrhosis of liver 007 K74.60 Compensate d cirrhosis. No edema on exam today. Mixed hyperlipidemia 267 039857 E78.2 Patient has dyslipidem ia, has hyperglyce ridemia need to do very low-fat diet. A total of 60 minutes spent caring for this patient today including the activities marked (X) below. Total time excludes any separately reportable /billed services or activities normally performed by ancillary staff.[X] Preparing to see the patient (review of previous notes and results on file)[X] Obtaining and/or reviewing separately obtained history[X] Performing medically appropriat e exam/evalu ation[X] Counseling and educating the patient/fa nasrin/careg moses[X] Ordering tests or procedures [X] Referring and communicat ing with other health profession als (not separately reported)[ X] Documentin g clinical informatio n in EHR/EMR[-] Independen t interpreta tion of results (not separately reported)[ -] Care Coordinati on (not separately reported)A dditional notes: [id number] Naima Escobedo, [facility] [address] [place] [address] 03/05/2023 11:33:09 03/05/2023 12:16:21 Thrombocytopenic disorder 826600180 D69.6 Chronic issue. Likely related to liver disease. Continue monitoring . Cirrhosis of liver K74.60 Unfortunat paula, patient did develop cirrhosis due to nonalcohol ic fatty liver disease. She is currently following up with hepatologi at [facility]. Has been strongly encouraged to get her blood glucoses under better control. Continue care as per specialist Esophageal varices without bleeding 42840642 I85.00 Due to underlying cirrhosis. Currently on nadolol. Continue therapy. Atheroscle rosis of aorta 68633511 I70.0 Chronic issue. Noticed on previous imaging. Continue with blood pressure and lipid-lowe ring therapies. Monitor. Hyperglyce shawna due to type 2 diabetes mellitus [id number] 14147 E11.65 A1c uncontroll ed. Patient has establishe d with endocrinol hever and will be determinin g plan of care at follow-up in 2 weeks. Portal hypertension 3474 2002 K76.6 Due to cirrhosis. Leading to esophageal varices as well. Continue nadolol. Chronic issue. Being monitored by [facility] Immunodefi ciency disorder 997760481 D84.81 Due to her elevated A1c of over 8 and uncontroll ed diabetes. Not to mention her cirrhosis. Pain in right hand [id number] 73397 M79.641 New finding. Patient reports this has been ongoing for the last 6 to 8 weeks. She has pain on her right pointer finger and thumb. Reports the pain is sharp and stabbing/e lectrical- like. Only occurs with specific contact points along her first ring finger. Symptoms consistent with radial nerve distributi on. Possible entrapment . Will have her see orthopedic s for further evaluation . Type 2 daljit betes mellitus 05482756 E11.65 67-year-ol d female comes in today for follow-up. Seasonal resident from [facility] that continues to follow-up with her PCP and specialist in [facility] as well. Also, continues to follow-up with her physician at [facility] for her nonalcohol ic fatty liver disease/ci rrhosis. Unfortunat paula, patient reports that her A1c done roughly 1 week ago returned at 12. She was advised by her liver specialist to get her sugars under control. She is uncertain why her glucoses climbed this much. Currently only on metformin. Previous A1c done in [place] was 7.3. We discussed the importance of glucose control. Especially given her fatty liver disease. For now, medication adjustment s were made, she was referred to diabetic education course and endocrinol ogy. We will have her back in the office in 3 months for A1c and other lab follow-up. Likely she will not get endocrinol ogy appointmen t for the next 4 to 5 months. [id number] JAIRO MURRY MD [facility] [address] [facility] [address] [place] [address] 03/19/2023 11:20:23 03/19/2023 17:22:11 Uncontrolled type 2 diabetes mellitus [id number] E11.65 Patient has uncontroll ed type 2 diabetes her A1c is 9.1% and her fasting glucose elevated. Patient continues glucose monitor trial data from March 05 to March 15 showed an average blood sugar of 264 mg/dL, SD 81 mg/dL, GMI 9.6%. She is only 15% in target range, no hypoglycem ia, 85% above target, 51% is above 250 mg/dL. The pattern is hyperglyce shawna all the time Discussed A1C goals with the patient and the need to continue monitoring blood glucose. The goal is to have an A1C below 7%. Fasting glucose 80-130 mg/dl, 2h after meals < 180 mg/dl. 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 Patient current regimen is not working because patient most likely has poor beta cell reserve. She is not producing insulin. I will discontinu e glipizide as it is not working.I will start the patient on basal and bolus. I will start the patient on Tresiba 15 units at 9 PM. Sample pen provided. Patient was educated how to use insulin.I will start Lyumjev carb ratio 1:15 grams, correction factor of 50 mg/dL Target 150. Sample pen provided.A gain we discussed carb counting and I provided the patient educationa l material to be able to count carbs. I will do paperwork for a personal continuous glucose monitor as patient is at high risk for hypoglycem ia due to cirrhosis. Her is present he was educated about carb counting as well. Patient was advised to decrease carbohydra ang to 45 g per meal, 15 g per snack. Patient educated about insulin action, duration and natural history of diabetes. Importance of finger stick check and log discussed with patient. Compliance with medication s discussed with patient. Hypoglycem ia signs, symptoms and management discussed with patient. Pamphlets provided. Weight loss and exercise discussed with patient. Cirrhosis of liver 007 K74.60 Compensate d cirrhosis. No edema on exam today. Mixed hyperlipidemia 267 905651 E78.2 Patient has dyslipidem ia, has hyperglyce ridemia need to do very low-fat diet. [id number] JAIRO MURRY MD [facility] [address] [facility] [address] [place] [address] 05/02/2023 14:46:46 05/05/2023 07:08:43 Uncontrolled type 2 diabetes mellitus [id number] E11.65 Patient has uncontroll ed type 2 diabetes her A1c is 9.1% and her fasting glucose elevated. Patient Personal continues glucose monitor data from 04/17 to 04/30 showed an average blood sugar of 288 mg/dL, SD 41 mg/dL, She is only 10 % in target range, no hypoglycem ia, 85% above target, 51% is above 250 mg/dL. The pattern is hyperglyce shawna all the time. Discussed A1C goals with the patient and the need to continue monitoring blood glucose. The goal is to have an A1C below 7%. Fasting glucose 80-130 mg/dl, 2h after meals < 180 mg/dl. 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 I will increase Tresiba 30 units at 9 PM. I will increase Lyumjev carb ratio 1:7.5 grams, correction factor of 25 mg/dL Target 150. Patient was advised to decrease carbohydra ang to 45 g per meal, 15 g per snack. Patient educated about insulin action, duration and natural history of diabetes. Importance of finger stick check and log discussed with patient. Compliance with medication s discussed with patient. Hypoglycem ia signs, symptoms and management discussed with patient. Pamphlets provided. Weight loss and exercise discussed with patient. Cirrhosis of liver K74.60 Compensate d cirrhosis. No edema on exam today. Mixed hyperlipidemia 267 647245 E78.2 Patient has dyslipidem ia, has hyperglyce ridemia need to do very low-fat diet. [id number] Naima Escobedo, [facility] [address] [facility] [address] [facility] [place] [address] 05/29/2023 08:33:45 05/29/2023 09:04:59 Type 2 diabetes mellitus 28413734 E11.69 Continues to be uncontroll ed. Has continuous glucose monitor in place. Has establishe d with endocrinol hever and currently on long and short acting insulin. I have encouraged her to make an appointmen t with her provider in [facility] as well. Mixed hyperlipidemia 267 034756 E78.2 For now, continue 20 mg simvastati n p.o. daily. LDL well-contr olled at 56. Pulmonary emphysema 8743 3001 J43.9 Chronic. Noted on previous imaging. On albuterol as needed Interstiti al lung disease 221764644 J84.9 Chronic. Not overly concerning at this time. Continue albuterol as needed. Cirrhosis of liver K74.60 Unfortunat paula, patient did develop cirrhosis due to nonalcohol ic fatty liver disease. She is currently following up with hepatologgulshan perez at [facility]. Has been strongly encouraged to get her blood glucoses under better control. Continue care as per specialist Multiple n odules of lung 637483552 R91.[address] Patient has been advised to do repeat imaging later this year. CT ordered previously Metabolic dysfunction-associate d steatohepatitis 874502036 K75.81 With resultant cirrhosis. Chronic issue. Worsening. Following with [facility] in [facility]. Mixed anxi ety and depressive disorder 724951493 F41.8 Patient previously started on sertraline 25 mg p.o. daily for mild depression /anxiety. Tolerating medication without issue. Continue therapy. Uses diazepam rarely and sparingly for increased anxiety episodes. Chronic. Stable at this point. Chronic insomnia 0731419 04 F51.04 Patient started on trazodone previous appointmen t. She reports that 1-/2 tab seems to be effective. Atheroscle rosis of aorta 63953954 I70.0 Chronic issue. Noticed on previous imaging. Continue with blood pressure and lipid-lowe ring therapies. Monitor. [id number] Naima Escobedo, [facility] [address] [facility] [address] [facility] [place] [address] 06/06/2023 09:34:29 06/06/2023 09:55:05 Pulmonary emphysema 75700788 J43.9 68-year-ol d female presents via telemedici ne today to discuss recent lung CT findings. She also has concerns of cough. Patient recently had repeat imaging due to pulmonary nodules noted on initial CT. CT scan did show stable pulmonary nodule but also reported concern for new nodule and recommende d 3-month follow-up imaging. This has already been ordered previously . Patient was concerned as she read the report with findings of pulmonary emphysema as well as interstiti al lung disease. She is a former smoker. We discussed emphysema and likely fact that her previous smoking caused this issue. Patient does have albuterol but reports that she does not use it. We discussed emphysema and possible connection to her current cough. She has not had any COPD exacerbati ons or hospitaliz ations due to COPD. I have encouraged her to use albuterol as needed for cough or any shortness of breath. I have asked/advi sed that she update me in 7 to 10 days with frequency of use. May benefit from maintenanc e medication and/or PFTs. We will follow-up with jey fajardo based on her progress with albuterol Chronic. Noted on previous imaging. On albuterol as needed Multiple n odules of lung 351305967 R91.[address] Patient has been advised to do repeat imaging later this year. CT ordered previously Interstiti al lung disease 465506188 J84.9 Chronic. Not overly concerning at this time. Continue albuterol as needed. Metabolic dysfunction-associate d steatohepatitis 931547536 K75.81 With resultant cirrhosis. Chronic issue. Worsening. Following with [facility] [place]. Cirrhosis of liver 007 K74.60 Unfortunat paula, patient did develop cirrhosis due to nonalcohol ic fatty liver disease. She is currently following up with hepatologi at [facility]. Has been strongly encouraged to get her blood glucoses under better control. Continue care as per specialist [id number] JAIRO MURRY MD [facility] [address] [facility] [address] [place] [address] 06/20/2023 15:07:00 06/23/2023 07:07:41 Uncontrolled type 2 diabetes mellitus [id number] E11.65 Patient has uncontroll ed type 2 diabetes her A1c is 8.6 %. Patient Personal continues glucose monitor data from o 06/19 showed an average blood sugar of 256 mg/dL, SD 80 mg/dL, She is only 16 % in target range, <2 % hypoglycem ia, 83% above target, 46 % is above 250 mg/dL. The pattern is hyperglyce shawna all the time. Discussed A1C goals with the patient and the need to continue monitoring blood glucose. The goal is to have an A1C below 7%. Fasting glucose 80-130 mg/dl, 2h after meals < 180 mg/dl. 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 I will increase Tresiba 40 units at 9 PM. I will increase Lyumjev carb ratio 1:5 grams, correction factor of 25 mg/dL Target 150. Patient was advised to decrease carbohydra ang to 45 g per meal, 15 g per snack. Patient educated about insulin action, duration and natural history of diabetes. Importance of finger stick check and log discussed with patient. Compliance with medication s discussed with patient. Hypoglycem ia signs, symptoms and management discussed with patient. Pamphlets provided. Weight loss and exercise discussed with patient. Cirrhosis of liver K74.60 Compensate d cirrhosis. No edema on exam today. Mixed hyperlipidemia 267 927729 E78.2 Patient has dyslipidem ia, has hyperglyce ridemia need to do very low-fat diet. [id number] JAIRO MURRY MD [facility] [address] [facility] [place] [address] 07/04/2023 15:04:37 07/07/2023 07:11:28 Uncontrolled type 2 diabetes mellitus [id number] E11.65 Patient has uncontroll ed type 2 diabetes her A1c is 8.6 %. CGM [id number] d at: July 04, 2023 2:37 PM EDTReporti ng period: FriJune 21, 2023 - FriJuly 03verag e glucose: 239 mg/dLStand chong deviation: 90 mg/dLVery High: 45%High: 22%In Range: 32%Low: <1%Very Low: <1% Discussed A1C goals with the patient and the need to continue monitoring blood glucose. The goal is to have an A1C below 7%. Fasting glucose 80-130 mg/dl, 2h after meals < 180 mg/dl. More than 70 % within target range.Disc ussed that having an A1C below 7% can help prevent residential diabetes related complicati ons or progressio n of already existing complicati ons including nephropath y, retinopath y and peripheral neuropathy . I will increase Tresiba 40 units at 9 PM. I will increase Lyumjev carb ratio 1:3 grams, correction factor of 25 mg/dL Target 150. Patient was advised to decrease carbohydra ang to 45 g per meal, 15 g per snack. Patient educated about insulin action, duration and natural history of diabetes. Importance of finger stick check and log discussed with patient. Compliance with medication s discussed with patient. Hypoglycem ia signs, symptoms and management discussed with patient. Pamphlets provided. Weight loss and exercise discussed with patient. Cirrhosis of liver K74.60 Compensate d cirrhosis. No edema on exam today. Mixed hyperlipidemia [id number] E78.2 Patient has dyslipidem ia, has hyperglyce ridemia need to do very low-fat diet. [id number] JAIRO MURRY MD [facility] [address] [facility] [address] [place] [address] 09/16/2023 08:15:41 09/16/2023 15:45:52 Uncontrolled type 2 diabetes mellitus [id number] E11.65 Patient has uncontroll ed type 2 diabetes her A1c is better 7.5 % from 8.6 %. CGM [id number] d at: Sep 16, 2023 8:08 AM EDTReporti ng period: FriAug 28, 2023 - FriSep 09verag e glucose: 195 mg/dLStand chong deviation: 71 mg/dLGMI: N/Gianna High: 25%High: 24%In Range: 50%Low: <1%Very Low: 0% Discussed A1C goals with the patient and the need to continue monitoring blood glucose. The goal is to have an A1C below 7%. Fasting glucose 80-130 mg/dl, 2h after meals < 180 mg/dl. 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 I will increase Tresiba 45 units at 9 PM. If going up in the basal dosing and I will switch the patient to NPH at night. I will continue Lyumjev carb ratio 1:3 grams, correction factor of 25 mg/dL Target 150.She has been injecting after dinner resulting in hyperglyce shawna. Patient was advised to decrease carbohydra ang to 45 g per meal, 15 g per snack. Patient educated about insulin action, duration and natural history of diabetes. Importance of finger stick check and log discussed with patient. Compliance with medication s discussed with patient. Hypoglycem ia signs, symptoms and management discussed with patient. Pamphlets provided. Weight loss and exercise discussed with patient. Patient denies taking lactulose at night, she also snore I will do a sleep study to see if the patient has a sleep apnea that is resulting in significan t hyperglyce shawna. Unfortunat paula the patient does not qualify for an insulin pump which will fix this problem of nocturnal hyperglyce shawna. Cirrhosis of liver 007 K74.60 Compensate d cirrhosis. No edema on exam today. Mixed hyperlipidemia 267 732503 E78.2 Patient has dyslipidem ia, has hyperglyce ridemia need to do very low-fat diet. Snoring [id number] R06.83 Patient presents with snoring and has risk factors for sleep apnea. Qualifies for home sleep apnea test. [id number] Naima Escobedo, [facility] [address] [facility] [address] [facility] [place] [address] 12/04/2023 10:27:54 12/04/2023 11:12:37 Adult health examination [id number] Z00.00 Medicare Annual Wellness Visit done today. 68-year-ol d female with a complicate d medical history that includes CAD, cirrhosis, esophageal varices, GERD, type 2 diabetes and multiple others comes in for wellness and to follow-up on her chronic healthcare conditions . Acute concerns also addressed. Due for flu shot which was administer ed. Mammogram overdue. Also ordered. Patient reports that she did see her PCP in [place] over the summer. Labs were done roughly 1 month ago. We will request these results. She continues to follow with the [facility] as well as her cirrhosis continues to advance. Is secondary to nonalcohol ic fatty liver disease. She has met with the transplant team at [facility] as well. Currently diagnosed with anxiety and depression for which she takes cautious Valium as needed. Also on sertraline daily. Has history of uncontroll ed type 2 diabetes. Also has some acute concerns with regards to potential hypoglycem ic episodes. She is finding it difficult to get an appointmen t with her endocrinol ogist and is requesting alternativ e referral today which was placed. Her depression screen is negative but she is currently on multidrug regimen to help keep this controlled . She has not had a fall in the last year but does report near syncopal episode associated with low blood glucose. She is active and independen t with regards to activities of daily living. Mixed anxi ety and depressive disorder [id number] F41.8 Patient previously started on sertraline 25 mg p.o. daily for mild depression /anxiety. Eventually increased to 50 mg. Tolerating medication without issue. Continue therapy. Uses diazepam rarely and sparingly for increased anxiety episodes. Chronic. Stable at this point. Atheroscle rosis of aorta [id number] I70.0 Chronic issue. Noticed on previous imaging. Continue with blood pressure and lipid-lowe ring therapies. Monitor. Coronary arteriosclerosis 03219456 I25.10 Chronic. Stable. Continue blood pressure and cholestero l control. Type 2 daljit calero mellitus 78354390 E11.69 Patient reports that she feels as though her recent [place]1c done [place] may have returned at 7.5 but she is uncertain. These records were requested. Also some concerns with regards to potential hypoglycem ia. She would like to establish with new endocrinol ogy and a new referral has been placed. She has been encouraged not to fast for extended periods of time and to keep snacks on hand for when her blood sugar starts to drop. Note from previous: Continues to be uncontroll ed. Has continuous glucose monitor in place. Has establishe d with endocrinol hever and currently on long and short acting insulin. I have encouraged her to make an appointmen t with her provider in [facility] as well. Thrombocyt openic disorder [id number] D69.6 Chronic issue. Likely related to liver disease. Continue monitoring . Screening mammography 24 132239 Z12.31 Overdue and ordered. Influenza vaccine needed [id number] 106 Z23 Due for flu vaccine. Administer ed. Ascites 258271442 I85.00 This has improved with the addition of spironolac tone torsemide has been able to be discontinu ed. she will be following up with [facility]. She has met with the transplant team as well. [id number] Naima Escobedo DO [facility] [address] [facility] [address] [place] [address] 06/07/2024 11:25:06 06/07/2024 12:01:12 Atherosclerosis of aorta 73985345 I70.0 Chronic issue. Noticed on previous imaging. Continue with blood pressure and lipid-lowe ring therapies. Monitor. Cirrhosis of liver K74.60 - Patient is being closely monitored by [facility]. - Currently on the transplant watch list with a recent MELD score of 8. - Last EGD in January showed no new varices; previous varices were banded successful ly. - Continue current management and follow-up with [facility].Unf ortunately , patient did develop cirrhosis due to nonalcohol ic fatty liver disease. She is currently following up with hepatologi at [facility]. Has been strongly encouraged to get her blood glucoses under better control. Continue care as per specialist Esophageal varices 38165 008 I85.00 - Last EGD in January showed no new varices; previous varices were banded successful ly.- Continue monitoring with regular EGD every 6 months.Rec ent banding done by [facility] in [facility]. Chronic. Stable. Gastroesop hageal reflux disease [id number] K21.9 - Patient reports persistent sour stomach and bloating, especially at night. - Gastric emptying study was normal. - Omeprazole 40 mg to be taken in the morning before breakfast. - Initiate famotidine at bedtime to improve nighttime symptoms. - Educated patient on the importance of taking omeprazole in the morning and avoiding late-night snacks to reduce GERD symptoms.C hronic. Uncontroll ed. Patient reports worsening symptoms. Will increase omeprazole to 40 mg p.o. daily. Immunodefi ciency disorder 575024182 D84.81 Due to her elevated A1c of over 8 and uncontroll ed diabetes. Not to mention her cirrhosis. Interstiti al lung disease 991189686 J84.9 Chronic. Not overly concerning at this time. Continue albuterol as needed. Mixed hyperlipidemia 267 121774 E78.2 Chronic. Stable for now, continue 20 mg simvastati n p.o. daily. LDL well-contr olled at 56. Multiple n odules of lung [id number] R91.8 There were nodules noted on previous imaging. However, repeat imaging done 2023 shows resolution of said nodules. There was emphysema noted. Pulmonary emphysema [id number] 3001 J43.9 - Chronic. Noted on previous imaging. On albuterol as needed Previous note:68-ye ar-old female presents via telemedici ne today to discuss recent lung CT findings. She also has concerns of cough. Patient recently had repeat imaging due to pulmonary nodules noted on initial CT. CT scan did show stable pulmonary nodule but also reported concern for new nodule and recommende d 3-month follow-up imaging. This has already been ordered previously . Patient was concerned as she read the report with findings of pulmonary emphysema as well as interstiti al lung disease. She is a former smoker. We discussed emphysema and likely fact that her previous smoking caused this issue. Patient does have albuterol but reports that she does not use it. We discussed emphysema and possible connection to her current cough. She has not had any COPD exacerbati ons or hospitaliz ations due to COPD. I have encouraged her to use albuterol as needed for cough or any shortness of breath. I have asked/radha wolf that she update me in 7 to 10 days with frequency of use. May benefit from maintenanc e medication and/or PFTs. 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 Likely related to liver disease. Continue monitoring . Type 2 daljit betes mellitus 51874197 E11.69 - Patient is on Fiasp for mealtime insulin and Tresiba for basal insulin.- Last HbA1c was 8.3%; goal is to get it under 8.- Continue current insulin regimen and adjust Fiasp dose based on blood glucose levels.- Has establishe d and follows regularly with endocrinyann kathleen. Previous notes:Abigail ent reports that she feels as though her recent A1c done [place] may have returned at 7.5 but she is uncertain. These records were requested. Also some concerns with regards to potential hypoglycem ia. She would like to establish with new endocrinol hever and a new referral has been placed. She has been encouraged not to fast for extended periods of time and to keep snacks on hand for when her blood sugar starts to drop. Note from previous:C ontinues to be uncontroll ed. Has continuous glucose monitor in place. Has establishe d with endocrinyann kathleen and currently on long and short acting insulin. I have encouraged her to make an appointmen t with her provider in [facility] as well. Abdominal bloating [id number] R14.0 - Patient reports significan t bloating and abdominal pain, especially at night. - Gastric emptying study was normal. - Omeprazole 40 mg to be taken in the morning before breakfast. - Initiate famotidine at bedtime to improve nighttime symptoms. - Educated patient on the importance of taking omeprazole in the morning and avoiding late-night snacks to reduce bloating and discomfort . 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 - Currently on the transplant watch list with a recent MELD score of 8. - Last EGD in January showed no new varices; previous varices were banded successful ly. - Continue current management and follow-up with [facility]. Health Concerns Section Related Observation LastModified by Organization Detai ls LastModified Time None Recorded Concern Status LastModified by Organization Details LastModified Time None Recorded Advance Directives Directive Y: Payers Insurance Date Sequence Insurance Name Policy Number Policy [place] Covered Member ID [place] Member ID Guarantor Name 08/24/2024 1 [place] [id number] Gwendolyn Alvarez [id number] Gwendolyn Alvarez 07/22/2024 2 [facility] [id number] Gwendolyn Alvarez [id number] Gwendolyn Alvarez Notes Date Note Type Note Provider Name and Address Organization Details Recorded Time 06/20/2023 text/html This visit was conducted via our telehealth video visit service.Provider location: in officePatient location: at home address on fileVisit Participants in addition to provider and patient: noneTotal time spent with patient: 11-20 minutesPatient has given verbal consent to telehealth visit. 68-year-old female today for Follow-up visit, she was last seen on 05/02/2023, for diabetes management. Patient Personal continues glucose monitor data from o 06/19 showed an average blood sugar of 256 mg/dL, SD 80 mg/dL, She is only 16 % in target range, <2 % hypoglycemia, 83% above target, 46 % is above 250 mg/dL. The pattern is hyperglycemia all the time. She has type 2 diabetes.Patient has other past medical history of cirrhosis, pulmonary nodules, She is on Tresiba 30 units at 9 pm, Lyumjev 1:7.5 g, sensitivity 25 mg/d. metformin 1000 twice a day. 02/26/2023Glucose 206Creatinine 0.9GFR 72Sodium 140Potassium 4.0Microalbumin 5.6A1c 9.1Cholesterol 139Triglyceride 223LDL 45 JAIRO MURRY MD [address] [address], [place], [address], [facility] - [facility], [facility] 06/20/2023 15:21:45 07/04/2023 text/html This visit was conducted via our telehealth video visit service.Provider location: in officePatient location: at home address on fileVisit Participants in addition to provider and patient: noneTotal time spent with patient: 11-20 minutesPatient has given verbal consent to telehealth visit. 68-year-old female today for Follow-up visit, she was last seen on 06/20/2023, for diabetes management.CGM [id number] at: July 04, 2023 2:37 PM EDTReporting period: FriJune 21, 2023 - FriJuly 03verage glucose: 239 mg/dLStandard deviation: 90 mg/dLVery High: 45%High: 22%In Range: 32%Low: <1%Very Low: <1% Patient Personal continues glucose monitor data from o 06/19 showed an average blood sugar of 256 mg/dL, SD 80 mg/dL, She is only 16 % in target range, <2 % hypoglycemia, 83% above target, 46 % is above 250 mg/dL. The pattern is hyperglycemia all the time. She has type 2 diabetes.Patient has other past medical history of cirrhosis, pulmonary nodules, She is on Tresiba 30 units at 9 pm, Lyumjev 1:7.5 g, sensitivity 25 mg/d. metformin 1000 twice a day. 02/26/2023Glucose 206Creatinine 0.9GFR 72Sodium 140Potassium 4.0Microalbumin 5.6A1c 9.1Cholesterol 139Triglyceride 223LDL 45 JAIRO MURRY MD [address] [address], [place], [address], [facility] - [facility], [facility] 07/04/2023 15:34:46 09/16/2023 text/html This visit was conducted via our telehealth video visit service.Provider location: in officePatient location: at home address on fileVisit Participants in addition to provider and patient: noneTotal time spent with patient: 11-20 minutesPatient has given verbal consent to telehealth visit. 68-year-old female today for Follow-up visit, she was last seen on 07/04/2023, for diabetes management.CGM [id number] at: Sep 16, 2023 8:08 AM EDTReporting period: FriAug 28, 2023 - FriSep 09verage glucose: 195 mg/dLStandard deviation: 71 mg/dLGMI: N/Gianna High: 25%High: 24%In Range: 50%Low: <1%Very Low: 0% Patient Personal continues glucose monitor data from o 06/19 showed an average blood sugar of 256 mg/dL, SD 80 mg/dL, She is only 16 % in target range, <2 % hypoglycemia, 83% above target, 46 % is above 250 mg/dL. The pattern is hyperglycemia all the time. She has type 2 diabetes.Patient has other past medical history of cirrhosis, pulmonary nodules, She is on Tresiba 40 units at 9 pm, Lyumjev 1:7.5 g, sensitivity 25 mg/d. metformin 1000 twice a day. 09/03/2023Sodium 140Potassium 4.1Creatinine 0.82GFR more than 60Glucose 164Calcium 9.9AST 74ALT 33Albumin 4.1Triglycerides 70Cholesterol 146LDL 72A1c 7.5microalbumin/creat inine ratio 5.5 02/26/2023Glucose 206Creatinine 0.9GFR 72Sodium 140Potassium 4.0Microalbumin 5.6A1c 9.1Cholesterol 139Triglyceride 223LDL 45 JAIRO MURRY MD [address] [address], [place], [address], [facility] - [facility], [facility] 09/16/2023 08:36:10 12/04/2023 text/html Medicare Annual Wellness VisitReported bypatient.Visit type:subsequent Medicare Annual Wellness visit PMH/FH/Rx and Social History Review:updated EMR in appropriate tabs; other providers updatedNotes:68-year- old female with a complicated medical history that includes CAD, cirrhosis, esophageal varices, GERD, type 2 diabetes and multiple others comes in for wellness and to follow-up on her chronic healthcare conditions. Acute concerns also addressed. Due for flu shot which was administered. Mammogram overdue. Also ordered. Patient reports that she did see her PCP in [place] over the summer. Labs were done roughly 1 month ago. We will request these results. She continues to follow with the [facility] as well as her cirrhosis continues to advance. Is secondary to nonalcoholic fatty liver disease. She has met with the transplant team at [facility] as well. Currently diagnosed with anxiety and depression for which she takes cautious Valium as needed. Also on sertraline daily. Has history of uncontrolled type 2 diabetes. Also has some acute concerns with regards to potential hypoglycemic episodes. She is finding it difficult to get an appointment with her stretcher leveler operator helper and is requesting alternative referral today which was placed. Her depression screen is negative but she is currently on multidrug regimen to help keep this controlled. She has not had a fall in the last year but does report near syncopal episode associated with low blood glucose. She is active and independent with regards to activities of daily living. See assessment and plan for full details. ANNUAL WELLNESS VISIT QUESTIONNAIRE Has the patient had any change or additions to their Medical Care Team since the last visit? i.e. pharmacy, medical suppliers, doctors No What is the Patient's living arrangements? Live with Spouse What type of residence does the Patient live in? Single Family Home How many stories (floors) to the Patient's residence? Single Story (1 floor) Does the Patient have smoke / CO detectors in the home? Yes Does the Patient use any of the following Respirator Machines? Nebulizer - No Oxygen - No CPAP/BiPAP - No Is the Patient able to afford his/her medications? Yes What type of transportation does the Patient use? I use my own car Has the Patient had a weight change in the past 6 months? Yes unexpected gain What type of diet the patient is currently following? Regular What best describes the Patient's level of Physical activity? Moderate Does the Patient use Tobacco Products? No Has the Patient seen a Dentist in the last 12 months? Yes Does the Patient always use a seat belt routinely? Yes Does the Patient use sunscreen routinely? Yes Does the Patient wear a helmet when riding a bicycle/motorcycle? Do Not Ride Is the Patient sexually active? Yes, uses safe sex practices How would the patient rate their health compared to others your age? Worse How would the patient rate their health today compared to last year? Same Does the Patient have Pain? Yes On a scale of 1-10 (10 is the most severe) describe your degree of discomfort today 7 Where are you experiencing pain? Head - Left Side Neck - Both Sides Shoulder - No Pain Arm - No Pain Wrist - No Pain Hand - Both Sides Chest - No Pain Upper Back - Both Sides Mid Back - Both Sides Lower Back - Both Sides Abdomen - Both Sides Groin - No Pain Hip - Both Sides Thigh - Both Sides Knee - No Pain Ankle - No Pain Foot - Both Sides Other / Not listed - No Pain Is the patient using narcotics/opioids for pain? No Is the patient taking or using any other harmful substances? No Does the Patient or people around the Patient have concerns about the Patient's hearing? No Does the Patient or people around the Patient have concerns about the Patient's vision? No Does the Patient use any of the following for mobility assistance? Cane - No Crutches - No Walker - No Wheelchair/Scooter - No Does the Patient or the people around the Patient have concerns about his/her memory? Yes Does the Patient have an Advance Directive (Living Will)? Yes Colonoscopy Date 07/06/2018 PHQ Score No or Minimal depression, (0). Imported from [employer] on 12/04/2023 Naima Escobedo, [address] [facility] [address], [place], [address], [facility] 12/04/2023 11:59:16 06/07/2024 text/html The patient is a 69-year-old female with a history of diabetes mellitus, cirrhosis, and GERD, presenting for follow-up. The patient is currently under the care of multiple specialists, including an stretcher leveler operator helper and a chemical dependency professional. Approximately 6-8 weeks ago, her stretcher leveler operator helper made adjustments to her diabetes management, initiating Fiasp at mealtime and continuing Tresiba. She reports that her A1c was 8.3% at her last endocrinology visit, with a target of <8%. She also notes that this is the closest her A1c has been to the target since the beginning of her treatment, as her levels have been significantly higher in the past. She is also being monitored for cirrhosis and is on a transplant watch list. Her most recent evaluation indicated a score of 8-9. She undergoes regular EGD every 6 months to monitor for varices, with the last procedure performed in January, which showed no new varices. The patient reports persistent GERD symptoms, including a sour stomach and abdominal pain, despite taking omeprazole 40 mg once daily at night. She also experiences significant bloating and abdominal distension, particularly after meals, which worsens at night and makes it difficult for her to lie flat. She notes that her abdomen feels like a brick and that the discomfort often keeps her up at night, requiring her to walk around to alleviate symptoms. She also reports frequent belching and flatulence. A recent gastric emptying study ordered by her stretcher leveler operator helper was reported as normal. QUALITY MEASURE QUESTIONNAIRE Has the Patient had a Diabetic Eye Exam in the last year Yes When did the Patient complete the annual diabetic eye exam 02/24/2024 Imported from [employer] on 06/07/2024 Naima Escobedo, DO [address], [place], [address], [facility] - [facility], [facility] 06/07/2024 12:42:13 OBGyn Episode No OBEpisode recorded.
--- NOTE | 2024-09-01 07:46 | ED.NAVMDI ---
HPI - Nausea/Vomiting/Diarrhea General Chief complaint: Nausea/Vomiting/Diarrhea Stated complaint: vomiting Time Seen by Provider: 09/01/24 07:26 Source: patient and family Mode of arrival: ambulatory Limitations: no limitations History of Present Illness ED Provider: HPI Narrative: 69-year-old woman reports history of KAUFFMAN, states she will be going to [facility] to be considered for liver transplant, in July when she was not [place] had paracentesis, presenting with abdominal discomfort wondering whether she requires paracentesis she also has chronic nausea, and chronic diarrhea, does not take lactulose because she has diarrhea, no fevers or chills no altered mentation. Does not really take any medications for nausea. Related Data Home Medications ?Medication ?Instructions ?Recorded ?Confirmed ascorbic acid (vitamin C) 500 mg 500 mg PO DAILY 08/13/22 09/17/23 tablet (Vitamin C) estradiol 0.01% (0.1 mg/gram) 1 appl vaginal BEDTIME 08/13/22 09/17/23 vaginal cream ferrous sulfate 324 mg (65 mg 324 mg PO DAILY 08/13/22 09/17/23 iron) tablet,delayed release furosemide 20 mg tablet 20 mg PO DAILY 08/13/22 09/17/23 hydroxyzine HCl 25 mg tablet 25 mg PO BEDTIME 08/13/22 09/17/23 metformin 500 mg tablet,extended 500 mg PO BID 08/13/22 09/17/23 release 24 hr nadolol 20 mg tablet 20 mg PO BEDTIME 08/13/22 09/17/23 omeprazole 40 mg capsule,delayed 40 mg PO DAILY@0630 08/13/22 09/17/23 release ropinirole 1 mg tablet 2 mg PO BEDTIME 08/13/22 09/17/23 sertraline 25 mg tablet 25 mg PO BEDTIME 08/13/22 09/17/23 simvastatin 20 mg tablet 20 mg PO BEDTIME 08/13/22 09/17/23 spironolactone 50 mg tablet 50 mg PO DAILY 08/13/22 09/17/23 trazodone 50 mg tablet 50 mg PO BEDTIME 08/13/22 09/17/23 vitamin A 3,000 mcg (10,000 unit) 3,000 mcg PO DAILY 08/13/22 09/17/23 capsule Previous Rx's ?Medication ?Instructions ?Recorded ondansetron 4 mg disintegrating 4 mg PO Q8H PRN nausea and 09/01/24 tablet vomiting 5 days #14 tabs Allergies Allergy/AdvReac Type Severity Reaction Status Date / Time penicillin V Allergy Unknown headache Verified 09/01/24 05:26 and vomiting Sulfa (Sulfonamide Allergy Unknown HEADACHE, Verified 09/01/24 05:26 Antibiotics) (SULFA NAUSEA (SULFONAMIDE ANTIBIOTICS)) Review of Systems Constitutional: Constitutional: Reports as per HPI [facility] Past Medical History Medical History Diabetes Cirrhosis KAUFFMAN (nonalcoholic steatohepatitis) Elevated cholesterol Anxiety Renal stones Skin cancer Emphysema of lung Thrombocytopenia ARBEN (obstructive sleep apnea) Somnolence, daytime Surgical History H/O colonoscopy History of back surgery History of esophagogastroduodenoscopy (EGD) Hx of appendectomy Hx of hysterectomy Social History Social History Alcohol intake: never Patient Tobacco Use Status: Former Tobacco user Tobacco use type: Cigarette Cigarette Packs Per Day: 1 Years Smoked: 20 Smoked in Last 30 Days: No Use of substances other than those prescribed or required for medical reasons: No Advance Directives: Yes Advance Directives Information Provided: Yes Advance Directives on File: No Do you have a plan to hurt others: No Plan Physical Exam Vital Signs: Vital Signs: Last Vital Signs Temp 97.9 F 09/01/24 05:51 Pulse 57 09/01/24 05:51 Resp 14 09/01/24 05:51 BP 119/69 09/01/24 05:51 Pulse Ox 97 09/01/24 05:51 O2 Del Method Room Air 09/01/24 05:51 BMI result Body Mass Index 27.8 Const: Other: Gen: ?Overall well-appearing patient HEENT: No scleral icterus Neck: Supple, no LAD CV: RRR, no obvious murmurs appreciated Resp: ?No wheezing rales rhonchi no stridor moving air well Abd: ?Bowel sounds are present, no tenderness no rebound no significant distention MSK: FROM, strength 5/5 all extremities Skin: No jaundice Neuro: ?Alert and oriented x3, moving upper and lower extremities symmetrically, no obvious facial asymmetry noted Medical Decision Making Medical Decision Making [facility] Narrative: Patient evaluated with abdominal pain she has chronic nausea and chronic diarrhea, so this is not new really no medications for that, she felt that her abdomen is getting more distended, bedside ultrasound did not reveal significant acidic fluid in the abdomen nothing that I would consider sending to Interventional Radiology or even draining at bedside, she has had no fevers no altered mentation, no leukocytosis nothing else to suspect as BP necessitating diagnostic paracentesis, we will treat with ondansetron on outpatient basis, have her follow up with the GI and discharge Differential Diagnosis Differential Diagnoses: The differential diagnosis associated with the presentation includes SBO, symptomatic ascites, SBP, dehydration, electrolyte derangements Admission/Observation Consideration of admission/observation: Escalation of care including admission/observation considered Lab Data 09/01/24 05:33 09/01/24 05:33 Labs: Lab Results 09/01/24 Range/Units 05:33 WBC 4.8 (4.8-10.8) X10*3/uL RBC 4.35 (4.20-5.50) X10*6/uL Hgb 13.1 D (12.0-16.0) g/dl Hct 38.1 (37.0-47.0) % MCV 87.6 (80.0-98.0) fL MCH 30.1 (27.0-33.0) pg MCHC 34.4 (31.0-35.0) g/dl RDW 13.7 (11.0-16.0) % Plt Count 64 L D (160-400) X10*3/uL MPV 10.8 (9.4-12.3) fL Immature Gran % (Auto) 0.2 (0.0-0.4) % Neut % (Auto) 57.1 (45-73) % Lymph % (Auto) 28.8 (20-40) % [place] % (Auto) 11.6 H (2-11) % Eos % (Auto) 2.1 (0-4) % Baso % (Auto) 0.2 (0-2) % Lymph # (Auto) 1.4 (1.2-4.9) X10*3/uL [place] # (Auto) 0.6 (0.1-1.2) X10*3/uL Eos # (Auto) 0.1 (0.0-0.4) X10*3/uL Baso # (Auto) 0.0 (0.0-0.2) X10*3/uL Abs Immat Gran (auto) 0.01 (0.00-0.03) X10*3/uL Absolute Neuts (auto) 2.7 (2.0-8.3) x10*3/uL Absolute Nucleated RBC 0.000 (0.0-0.012) X10*3/uL Nucleated RBC % (auto) 0.0 (0.0-0.2) /100WBC Smear Tech's Comments VERIFIED Sodium 141 (135-145) mmol/L Potassium 4.0 (3.3-5.1) mmol/L Chloride 109 H (96-108) mmol/L Carbon Dioxide 23 (22-29) mmol/L Anion Gap 13 (12-20) BUN 7 L (9-16) mg/dL Creatinine 0.70 (0.5-1.4) mg/dL Estim Creat Clear Calc 69.7 Estimated GFR > 60 Random Glucose 146 H (60-115) mg/dL Calcium 8.9 D (8.4-10.2) mg/dL Magnesium 1.6 (1.6-2.6) mg/dL Total Bilirubin 0.7 (0.0-1.0) mg/dL AST 41 H (5-31) U/L ALT 26 (0-31) U/L Alkaline Phosphatase 93 (39-117) U/L Total Protein 6.3 L (6.5-8.0) g/dL Albumin 3.7 (3.5-5.0) g/dL Lipase 24 (8-78) U/L Discharge Plan Discharge Clinical Impression: Cirrhosis of liver Qualifiers: Hepatic cirrhosis type: unspecified hepatic cirrhosis Ascites presence: with ascites Qualified Code(s): K74.60 - Unspecified cirrhosis of liver Patient Disposition: Home, Self-Care Additional Instructions: As discussed, fortunately there was no evidence that there is enough ascites or intra-abdominal fluid collection that would indicate need for drainage, also blood work has been very reassuring there is no suggestion for any evidence of dehydration or electrolyte derangements, I will provide her with a Zofran you can use every 8-12 hours needed for nausea, make sure to stay well hydrated and he has been doing good so far and make sure you have follow up with your GI provider, and if anything else changes and you feel worse never hesitate to come back to the ER for re-evaluation. Prescriptions: New ondansetron 4 mg tablet,disintegrating 4 mg PO Q8H PRN (Reason: nausea and vomiting) 5 Days Qty: 14 0RF No Action ropinirole 1 mg tablet 2 mg PO BEDTIME trazodone 50 mg tablet 50 mg PO BEDTIME omeprazole 40 mg capsule,delayed release(DR/EC) 40 mg PO DAILY@0630 nadolol 20 mg tablet 20 mg PO BEDTIME simvastatin 20 mg tablet 20 mg PO BEDTIME sertraline 25 mg tablet 25 mg PO BEDTIME hydroxyzine HCl 25 mg tablet 25 mg PO BEDTIME furosemide 20 mg tablet 20 mg PO DAILY estradiol 0.01 % (0.1 mg/gram) cream 1 appl vaginal BEDTIME metformin 500 mg tablet extended release 24 hr 500 mg PO BID spironolactone 50 mg tablet 50 mg PO DAILY ferrous sulfate 324 mg (65 mg iron) tablet,delayed release (DR/EC) 324 mg PO DAILY vitamin A 3,000 mcg (10,000 unit) Capsule 3,000 mcg PO DAILY ascorbic acid (vitamin C) [Vitamin C] 500 mg Tablet 500 mg PO DAILY Print Language: Armenian
[2024-09-01 08:29] VITALS: BP 114/66; PULSE 66; RESP 16; TEMP 36.7; O2SAT 98
== END 2024-09-01 08:31 | disposition home or self-care (01) ==
PROVIDERS: Emergency Provider Emergency Medicine; PCP Internal Medicine
DX: K74.60 Unspecified cirrhosis of liver (principal); R11.2 Nausea with vomiting, unspecified; E11.9 Type 2 diabetes mellitus without complications; Z79.899 Other long term (current) drug therapy; Z79.84 Long term (current) use of oral hypoglycemic drugs; Z87.891 Personal history of nicotine dependence
CPT/HCPCS: 36415; 80053; 83690; 83735; 85025; 99283; 99284

== ENCOUNTER 2024-10-26 13:45 | Outpatient (REF) | payer MEDICARE, SELFPAY ==
--- OUTSIDE RECORDS SUMMARY | 2024-10-26 16:31 | XMS_ITS | Encounter Summary ---
Author Organization [facility] Address [address] [place] [address] Phone Care Team Providers Care Gas Appliance Mechanic Name Role Phone Shaun Escobedo DO Unavailable [phone] Felice Mtz MD Primary Care Provider [phone] Encounter Details Date Type Department Care Team (Late st Contact Info) Description 08/23/2024 Ophth Exam [facility] [address] [place] [address] Karime Soriano MD, JERAD [address] [place] [address] [email or web address] Social History Tobacco Use Types Packs/Day Years Used Date Smoking Tobacco: Former Cigarettes 2 14 1 968 - 1982 Smokeless Tobacco: Never Alcohol Use Standard Drinks/Week Comments No 0 (1 standard drink = 0.6 oz pure alcohol) 2 drinks/ year at most; none in years Education Answer Date Recorded Are you interested in more education? Not on manny e 06/13/2022 Are you concerned about learning? Not on file 06/13/2022 No 06/13/2022 No 06/13/2022 Food Answer Date Recorded Within the past 6 months we worried whether our food would run out before we got money to buy more. Never True 08/23/2024 Within the past 6 months the food we bought just didn't last and we didn't have enough money to get more. Never True Residential Stability Answer Date Recor ded What is your housing situation today? I have jelena roche 08/23/2024 How many times have you move d in the past 12 months? Zero (I did not move) 08/23/2024 Paying for Meds Answer Date Recorded Do you have trouble paying for medicines? No 08/23/2024 Paying Utility Bills Answer Date Record ed Do you have trouble paying your heating or elect ricity bill? No 08/23/2024 Transportation Answer Date Recorded Has the lack of transportati on kept you from medical appointments or from getting medications? No 08/23/2024 Digital Access Answer Date Recorded No 08/23/2024 Yes 08/23/2024 Do you have reliable internet access at home? Ye s 08/23/2024 Do you have a device (e.g., phone, tablet, computer) with a working camera? Yes 08/23/2024 Intimate Partner Violence Answer Date R ecorded Are you denied basic needs s uch as food, clothing, or medical care? No 08/23/2024 In the past 12 months have y ou been in a relationship with a person who hurts, threatens, or tries to control you? No 08/23/2024 Are you denied basic needs s uch as food, clothing, or medical care? No 08/23/2024 In the past 12 months have y ou been in a relationship with a person who hurts, threatens, or tries to control you? No 08/23/2024 Comments Unknown Sex and Gender Information Value Date Recorded Sex Assigned at Female 08/23/2024 8:41 AM EDT Legal Sex Female 12:47 AM EDT Gender Identity Female 08/23/2024 8:41 AM EDT Sexual Orientation Something else 08/23/2024 8: 41 AM EDT documented as of this encounter Functional Status * Calculated C-SSRS Risk Score (Lifetime/Recent) Answer Date of Assessment Author No Risk Indicated 08/23/2024 8:40 AM EDT Cara Ramirez RN * Piatt Suicide Severity Rating Scale (Screener/Recent Self-Report) Question Answer Date of Assessment Author 1. Wish to be (Past 1 Month) No 08/23/2024 8:40 AM EDT Nasir Hamilton RN 2. Non-Specific Active Suicidal Thoughts (Past 1 Month) No 08/23/2024 8:40 AM EDT Nasir Hamilton RN 6. Suicidal Behavior (Lifetime) No 08/23/2024 8:40 AM EDT Nasir Hamilton RN documented as of this encounter Plan of Treatment Upcoming Encounters Date Type Department Care Team (Late st Contact Info) Description 11/08/2024 1:45 PM EDT Office Visit [facility] [address] [place] [address] Debra Nielson MD, PhD [address] [place] [id number] [email or web address] documented as of this encounter Visit Diagnoses Not on filedocumented in this encounter Care Teams Gas Appliance Mechanic Relationship Specialty Start Date End Date Felice Mtz MD [address] [place] [id number] PCP - General Internal Medicine 08/23/24 Shaun Escobedo DO Family Medicine 08/27/22 documented as of this encounter Additional Source Comments The information contained in this document represents components of the legal health record. It is not the complete legal health record.[facility]
--- OUTSIDE RECORDS SUMMARY | 2024-10-26 16:31 | XMS_ITS | Patient Health Record ---
Author Organization [facility] Address [address] [place] [address] Care Team Providers Care Rn Relief Charge Name Role Phone Bibi SINGH, Felice Primary Care Provider Andre Alexandra [phone] Allergies Allergen (clinical drug ingredient) Drug/Non Drug Allergy documented on EMR Reaction Allergy Type Onset Date Status sulfacetamide Sulfacetamide Sodium Unknown Drug Allergy Active Reason For Referral No Information Medications Medication [...] Problem Status W/U Status Risk Notes Problem 522827463 Encounter for screening for malignant neoplasm of colon (Z12.11) Active confirmed Problem Diarrhea (65304667) Diarrhea (R19.7) Active confirmed Problem 24755655 Secondary esophageal varices without bleeding (I85.10) Active confirmed Problem 28564743 Other cirrhosis of liver (K74.69) Active confirmed Problem Portal hypertension (28057627) Portal hypertension (K76.6) Active confirmed Problem Nausea (825554985) Nausea (R11.0) Active confirmed Problem Iron deficiency anemia (64431437) Iron deficiency anemia (D50.9) Active confirmed Problem Abnormal blood test (180583651105368) Abnormal celiac antibody panel (R89.4) Active confirmed Problem 137615361 Elevated liver enzymes (R74.8) Active confirmed Problem 536530618 Fatty liver (K76.0) Active confirmed Problem 130309930 Gastroesophageal reflux disease, esophagitis presence not specified (K21.9) Active confirmed Problem Anemia (689859535) Anemia (D64.9) Active confirmed Problem Esophageal varices (14509235) Esophageal varices (I85.00) Active confirmed Problem 13329221 Diarrhea, unspecified type (R19.7) Active confirmed Problem Ascites (614449344) Ascites (R18.8) Active confirmed Problem Diverticulosis of colon (468250902) Diverticulosis of colon (K57.30) Active confirmed Problem 607242240 Thrombocytopenia (D69.6) Active confirmed Problem Generalized abdominal pain (996418861) Abdominal pain, acute, generalized (R10.84) Active confirmed Problem Hepatic encephalopathy (63179474) Hepatic encephalopathy (K76.82) Active confirmed Vital Signs Temperature 96.9 degrees Fahrenheit 08/03/2024 Blood pressure diastolic 01 mm Hg 08/03/2024 Height 63 in 08/03/2024 Blood pressure systolic 001 mm Hg 08/03/2024 Weight 154 lbs 08/03/2024 BMI 27.28 kg/m2 08/03/2024 Encounters Encounter Location Date Provider Diagnosis [facility] [address] [place] [address] 08/03/2024 Andre Irwin Other cirrhosis of l iver K74.69 ; Secondary esophageal varices without bleeding I85.10 ; Thrombocytopenia D69.6 ; Fatty liver K76.0 ; Ascites R18.8 ; Iron deficiency anemia D50.9 and Hepatic encephalopathy K76.82 Assessments Encounter Date Diagnosis (ICD Code) Assessment Notes Treatment Notes Treatment Clinical Notes Section Notes 08/03/2024 Secondary esophageal varices without bleeding (ICD-10 - I85.10) Overall, Gwendolyn appears stable at the present time in regard to the cirrhosis with associated complications of ascites, esophageal varices, and some hepatic encephalopathy. At the present time she does not show any signs of increasing fluid accumulation, hepatic encephalopathy, nor any reported GI bleeding. Given her recent hospitalization and close follow-up with the [facility] in [place] I do not think I need to [...] will continue to be followed closely in [place] but I did advise her to certainly call me while she is here or in [place] if there are any problems or questions that I can be of assistance with. It sounds like she will definitely be listed for transplant when she goes back to [place] in few months. We did review the [...] salt intake so as to avoid fluid accumulation . Do the labs. Call me if problems [...] recent hospitalization and close follow-up with the [facility] in [place] I do not think I need to [...] will continue to be followed closely in [place] but I did advise her to certainly call me while she is here or in [place] if there are any problems or questions that I can be of assistance with. It sounds like she will definitely be listed for transplant when she goes back to [place] in few months. We did review the [...] recent hospitalization and close follow-up with the [facility] in [place] I do not think I need to [...] will continue to be followed closely in [place] but I did advise her to certainly call me while she is here or in [place] if there are any problems or questions that I can be of assistance with. It sounds like she will definitely be listed for transplant when she goes back to [place] in few months. We did review the [...] recent hospitalization and close follow-up with the [facility] in [place] I do not think I need to [...] will continue to be followed closely in [place] but I did advise her to certainly call me while she is here or in [place] if there are any problems or questions that I can be of assistance with. It sounds like she will definitely be listed for transplant when she goes back to [place] in few months. We did review the [...] recent hospitalization and close follow-up with the [facility] in [place] I do not think I need to [...] will continue to be followed closely in [place] but I did advise her to certainly call me while she is here or in [place] if there are any problems or questions that I can be of assistance with. It sounds like she will definitely be listed for transplant when she goes back to [place] in few months. We did review the [...] recent hospitalization and close follow-up with the [facility] in [place] I do not think I need to [...] will continue to be followed closely in [place] but I did advise her to certainly call me while she is here or in [place] if there are any problems or questions that I can be of assistance with. It sounds like she will definitely be listed for transplant when she goes back to [place] in few months. We did review the [...] recent hospitalization and close follow-up with the [facility] in [place] I do not think I need to [...] will continue to be followed closely in [place] but I did advise her to certainly call me while she is here or in [place] if there are any problems or questions that I can be of assistance with. It sounds like she will definitely be listed for transplant when she goes back to [place] in few months. We did review the [...] STOOL WBC 10/24/2021 C DIFFICILE RFLX PCR 10/24/2021 C DIFFICILE RFLX PCR 10/22/2022 CALPROTECTIN, STOOL 10/24/2021 Prothrombin Time INR 08/03/2024 Ferritin 08/03/2024 Ammonia 08/03/2024 H pylori Ag Stool 09/04/2023 GI PANEL 10/24/2021 Future Test Test Name Order Date UPPER GI ENDOSCOPY 11/10/2018 COLONOSCOPY 11/10/2018 COLONOSCOPY 10/24/2021 UPPER GI ENDOSCOPY 11/03/2021 Next Appt Details Provider Name:Andre Irwin , 08/03/2025 01:00:00 PM, [address] [place] [address], [address], [place], [address], Insurance Providers Payer Name Payer Address Payer Phone Subscriber Number Group Number Insured Name Patient Relationship to Insured Coverage Start Date Coverage End Date [employer] [place] [address] [place] [address] [id number] GWENDOLYN BLANTON Self - patient is the insured [employer] ATT[employer] CLAIMS [address] [place] [address] [id number] GWENDOLYN BLANTON Self - patient is the insured Medical (General) History Medical History History ICD Code Kidney stones Denies [place],CVA,Lung disease,renal diseas Neg screening colonoscopy 12/2007 Dr. Aung vitale in [place] Anxiety Hyperlipidemia GERD--EGD in 12/2018 reveale d a mod-sized HH, but was neg for Cunningham's/esophagitis--other findings as below Elevated LFT's--probable fat ty liver--neg. w/u in 10/2018--EGD in 12/2018 revealed esophageal varices and portal gastropathy--started on Nadolol--referral made to [facility] Liver [facility]plant [facility] in 12/2018 Thrombocytopenia with platelet count of 80,000 in October 2018 Neg. 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 A liver biopsy in January 2019 confirmed this diagnosis. She is being evaluated both at [facility] liver transplant clinic(where they do only live donor transplants) and at the [facility] in [place]. She will be listed at both facilities. She describes her MELD score is 7 as of the 11/2019 OV. As of the 10/2021 office visit she advised me that she is no longer being followed at [facility] but is now being followed [place] [facility] [place] [facility], and also continues to be followed at the [facility]. 2020 EGD at [place] with bandin g of esophageal varices x [...] colitis Upper endoscopy in July at the [facility] in [place]-describes grade 2 varices in the lower esophagus--a single esophageal varix was banded; also noted was portal gastropathy but no gastric varices MELD score was only [address] [facility] in July of 2023 IDDM Ascites and Portal vein thrombosis in 2024 in [place]-s/p paracentesis S/P Iron Infusions at [facility] in summer 2023 Surgical History Surgery Date(Month/Year) Basal cell and squamous cell skin cancers on chest wall, face, forehead, side of neck, behind right knee, behind ear Appendectomy Back surgery x 4 [id number] [facility] Hospitalization History Reason Date(Month/Year) in [place] and had ascites
--- OUTSIDE RECORDS SUMMARY | 2024-10-26 16:31 | XMS_ITS | Clinical Summary ---
Author Organization [facility] Address [address] [facility] [address] [place] [address] Phone Care Team Providers Care Cleaning Validation Consultant Name Role Phone Shaun Escobedo DO Unavailable [phone] Felice Mtz MD Primary Care Provider [phone] Allergies Active Allergy Reactions Criticality Noted Date Comments Penicillin G Benzathine Headaches,Nausea and/or Vomiting Medium 01/30/2021 Sulfa (Sulfonamide Antibiotics) GI Upset 05/04/2013 Medications omeprazole (PRILOSEC) 20 MG capsule Take 20 mg by mouth daily. Active simvastatin (ZOCOR) 20 MG tablet 9 Active sertraline (ZOLOFT) 25 MG tablet Take 1 tablet by mouth daily. 9 Active nadoloL (CORGARD) 20 MG tablet Take 40 mg by mouth daily. Active rOPINIRole (REQUIP) 0.5 MG tablet Take 1 mg by mouth nightly at bedtime. Take 1-2 hours prior to bed time Active diazePAM (VALIUM) 5 MG tablet Take 5 mg by mouth daily as needed for anxiety. Active estradioL (ESTRACE) 0.01 % (0.1 mg/gram) vaginal cream APPLY CREAM TO PER URETHRA ONCE A NIGHT FOR 4 WEEKS, THEN TWICE A WEEK 3 Active ferrous sulfate 324 mg (65 mg otoe-missouria iron) TbEC TAKE 1 TABLET (65 MG OF IRON TOTAL) BY MOUTH DAILY 3 Active furosemide (LASIX) 20 MG tablet Take 20 mg by mouth daily. 3 Active hydrOXYzine (ATARAX) 25 MG tablet Take 25 mg by mouth every 8 (eight) hours as needed. 3 Active spironolactone (ALDACTONE) 50 MG tablet Take 1 tablet by mouth every morning. 3 Active traZODone (DESYREL) 50 MG tablet Take 25 mg by mouth nightly at bedtime. Active metFORMIN (GLUCOPHAGE) 1000 MG tablet Take 1,000 mg by mouth. 4 Active apixaban (ELIQUIS) 5 mg tablet Take 5 mg by mouth 2 (two) times a day. 5 01/30/20 25 Active insulin degludec U-200 (TRESIBA FLEXTOUCH U-200) 200 unit/mL (3 mL) InPn injection pen Inject 24 Units under the skin. 5 Active insulin aspart (FIASP FLEXTOUCH U-100 INSULIN) 100 unit/mL (3 mL) injection pen See Instructions, 10- 25 units 4 times daily based on blood sugar and planned carbohydrate intake., # 15 mL, 11 Refills, Maintenance, 09/10/23 13:46:00 EDT, [facility]/pharmacy #[id number], Partial fill upon patient request if the prescription is for a schedule II... 4 Active vitamin A 31457 UNIT capsule Take 3,000 mcg by mouth. 4 04/15/19 26 Active insulin lispro (ADMELOG, HUMALOG) 100 unit/mL injection vial sliding scale 5 Active ergocalciferol (DRISDOL) 50,000 unit capsule Take 50,000 Units by mouth once a week. 5 10/20/19 25 Active Problems Problem Noted Date Diagnosed Date Trochanteric bursitis of right hip 10/22/2018 Trochanteric bursitis of left hip 10/15/2018 Sacroiliitis, not elsewhere classified 7 Trochanteric bursitis of both hips 01/30/2017 Encounters Date Type Department Care Team Description 08/23/2024 8:26 AM EDT - 08/23/2024 9:47 AM EDT Emergency [facility] Emergency Department [address] [place] [address] Karime Soriano MD, JERAD Discharge Disposition: Home or Self Care 08/23/2024 Ophth Exam [facility] Emergency Department [address] [place] [address] Karime Soriano MD, JERAD from Last 3 Months Family History Medical History Relation Comments Alcohol abuse Brother 1 Heart disease Brother 1 Diabetes Brother 2 Hypertension Brother 2 CV disease Father Cancer Maternal Uncle Melanoma Maternal Uncle Skin melanoma Maternal Uncle Diabetes Mother Hypertension Mother Skin cancer Mother Skin cancer (non-melanoma) Mother Epilepsy Paternal Aunt Alzheimer's disease Sister 1 Heart disease Sister 1 Macular degeneration Sister 1 Diabetes Sister 2 Heart disease Sister 2 Schizophrenia Sister 2 Vascular disease Sister 2 Hypertension Sister 3 Thyroid disease Sister 3 Hyperlipidemia Sister 4 Skin cancer Sister 4 Alcohol abuse Sister 5 Breast cancer Sister 5 Diabetes Sister 5 Drug abuse Sister 5 Drug use disorder Sister 5 Heart disease Sister 5 Hypertension Sister 5 No Known Problems Son 2 No Known Problems Son 3 Glaucoma Neg Hx Relation Status Comments Brother 1 No etoh in a margie g time Brother 2 (Age 75 yrs) pancreatic cancer 2 years ago Father (Age 83 yrs) had aortic aneurysm (operated on) heart failturel stopped etoh before pt was born) Maternal Uncle (Age 75 yrs) 25 yr s ago Mother Alive Paternal Aunt (Age 60) Epilepsy- 40 yrs ago (1968) Sister 1 Alive Sister 2 Alive Sister 3 (Age 72 yrs) Sister 4 Alive [facility]- takes a sta tin only Sister 5 Alive Drug addiction f or many years (MVA); etoh abuse as well- stopped within the past year Son 1 Alive b 1974 high chol esterol Son 2 Alive b 1975 Son 3 Alive b 1978 Son 4 (Age 3.5 mos) Heart dis ease 1973- at [facility] Social History Tobacco Use Types Packs/Day Years Used Date Smoking Tobacco: Former Cigarettes 2 14 1 968 - 1981 Smokeless Tobacco: Never Tobacco Cessation:Counseling Given: Not Answered Alcohol Use Standard Drinks/Week Comments No 0 [...] Something else 08/23/2024 8: 41 AM EDT Last Filed Vital Signs Vital Sign Reading Time Taken Comments Blood Pressure 135/75 08/23/2024 8:37 AM EDT Pulse 74 08/23/2024 8:37 AM EDT Temperature 36.1 C (97 F) 08/23/2024 8:37 AM EDT Respiratory Rate 18 08/23/2024 8:37 AM EDT Oxygen Saturation 95% 08/23/2024 8:37 AM EDT Inhaled Oxygen Concentration - - Weight 78 kg (172 lb) 09/23/2023 10:08 AM EDT Height 157.6 cm (5' 2.05 ) 02/05/2021 10:[address] Body Mass Index 31.41 02/05/2021 10:44 AM EST Plan of Treatment Upcoming Encounters Date Type Department Care Team (Late st Contact Info) Description 11/08/2024 1:45 PM EDT Office Visit [facility] [address] [place] [address] Debra Nielson MD, PhD [address] [place] [phone] [email or web address] Health Maintenance Due Date Last Done Comments DEPRESSION SCREENING 1965 MAMMOGRAM 1993 COLOGUARD 1998 COLONOSCOPY 1998 COLORECTAL CANCER SCREENING 1998 FIT TEST 1998 FOBT 1998 SIGMOIDOSCOPY 1998 VIRTUAL COLONOSCOPY 1998 ZOSTER VACCINES (2 of 3) 04/14/2016 02/18/2016 CREATININE LEVEL 10/18/2023 10/17/2022, , 05/04/2013, Additional history exists INFLUENZA VACCINE (#1) 2024 , 11/22/2019, 11/09/2018, Additional history exists COVID-19 VACCINE ( season) 2024 POTASSIUM LEVEL 07/20/2025 07/20/2024, 08/3 02/2022, 02/05/2021, Additional history exists LIPID PANEL 02/05/2026 02/05/2021, 07/13/2019 RSV VACCINE (1 - 1-dose 75+ series) 2028 Adult Td,Tdap Booster 02/05/2029 02/05/2019 OSTEOPOROSIS SCREENING INITIAL (ONE-TIME) Completed 07/13/2019 HEPATITIS A VACCINES Aged Out 08/16/2019, 02/06/20 19 No longer eligible based on patient's age to complete this topic PNEUMOCOCCAL VACCINES (50+ years) Completed 08/16/2019, 02/05/2019 HEPATITIS C SCREENING Completed 02/05/2021, 019 SMOKING STATUS SCREENING (Once After 26 Yrs) Completed 08/23/2024 HIB VACCINES Aged Out No longer eligi ble based on patient's age to complete this topic MENINGOCOCCAL VACCINES (ACWY) Aged Out No longer eligible based on patient's age to complete this topic MENINGOCOCCAL VACCINES (B) Aged Out N o longer eligible based on patient's age to complete this topic Medical Devices Not on file Procedures Procedure Name Priority Date/Time Associated Diagnosis Comments BASIC METABOLIC PANEL STAT 10/17/2022 5:19 AM EDT LIPID PANEL Routine 02/05/2021 11:01 AM EST Pre-transplant evaluation for chronic liver disease KAUFFMAN (nonalcoholic steatohepatitis) Recurrent UTI HEPATITIS C ANTIBODY, QUALITATIVE Routine 02/05/2021 11:01 AM EST Pre-transplant evaluation for chronic liver disease KAUFFMAN (nonalcoholic steatohepatitis) Recurrent UTI from Last 3 Months or Most Recently Relevant to Health Maintenance Results * (ABNORMAL) Basic metabolic panel (10/17/2022 5:19 AM EDT) SODIUM 135 133 - 146 mmol/L [facility] CHLORIDE 98 96 - 108 mmol/L [facility] POTASSIUM 4.0 3.3 - 5.1 mmol/L [facility] CO2 24 21 - 35 mmol/L [facility] BUN 16 6 - 19 mg/dL [facility] CREATININE 1.00 0.5 - 1.5 mg/dL [facility] GLUCOSE 414(H) 70 - 99 mg/dL [facility] CALCIUM 9.4 8.4 - 10.3 mg/dL [facility] EGFR 61 >59 mL/min/1.7 3m2 [facility] Comment:Estimated glomerular filtration rate calculated using the CKD-EPI refit equation. ANION GAP 17 10 - 20 mmol/L [facility] Blood 10/17/2022 5:19 AM EDT 10/17/2022 5:28 AM EDT Kobi Johnson MD LAB BLOOD ORDERABL ES Final Result Performing Organization Address City/Va Hospital/ZIP Co de Phone Number [facility] [address] [place] [address] * Hepatitis C antibody, qualitative (02/05/2021 11:01 AM EST) HCV ANTIBODY Negative Negative [facility] Comment:Antibodies to HCV no t detected. Does not exclude the possibility of exposure to HCV. 02/05/2021 11:0 1 AM EST 02/05/2021 12:13 PM EST Ginny Stanley [facility] LAB BLOOD ORDERABLES Final Re sult Performing Organization Address City/Va Hospital/[facility] Co de Phone Number [address] [address] * (ABNORMAL) Lipid panel (02/05/2021 11:01 AM EST) HDL 44 35 - 100 mg/dL [facility] CHOLESTEROL 114 <200 mg/dL [facility] TRIGLYCERIDES 194(H) 40 - 150 mg/dL [facility] LDL 31(L) 50 - 129 mg/dL [facility] CARDIAC RISK RATIO 2.6 0.0 - 5.0 [facility] NON-HDL CHOLESTEROL 70 mg/dL [facility] Comment:NCEP ATP III guideli arlene suggest a non-HDL cholesterol goal 30 mg/dl higher than the patient-specific LDL goal. 02/05/2021 11:0 1 AM EST 02/05/2021 12:13 PM EST Ginny Stanley [facility] LAB BLOOD ORDERABLES Final Re sult Performing Organization Address City/Va Hospital/ZIP Co de Phone Number [address] [address] from Last 3 Months or Most Recently Relevant to Health Maintenance Insurance MEDICARE PART A & B [employer] SUPPLEMENT MEDICARE PART A & B [employer] SUPPLEMENT MEDICARE PART A & B [employer] MED[employer] SUPPLEMENT MEDICARE PART A & B [employer] MEDEX SUPPLEMENT MEDICARE PART A & B [facility] MEDEX SUPPLEMENT MEDICARE PART A & B [employer] MEDEX SUPPLEMENT MEDICARE PART A & B [employer] MEDEX SUPPLEMENT MEDICARE PART A & B [employer] MEDEX SUPPLEMENT MEDICARE PART A & B [employer] MEDEX SUPPLEMENT MEDICARE PART A & B [employer] MEDEX SUPPLEMENT Care Teams Cleaning Validation Consultant Relationship Specialty Start Date End Date Felice Mtz MD [address] [place] [id number] PCP - General Internal Medicine 08/23/24 Shaun Escobedo DO Family Medicine 08/27/22 Additional Source Comments The information contained in this document represents components of the legal health record. It is not the complete legal health record.[facility]
--- OUTSIDE RECORDS SUMMARY | 2024-10-26 16:31 | XMS_ITS | Patient Health Record ---
Author Organization [facility] Address [address] [facility] [place] [address] Care Team Providers Care Flour Broker Name Role Phone Felice Mtz MD Primary Care Provider UnavailIlan Barraza Unavailable [phone] Osman Willis Unavailable [phone] Allergies Allergen (clinical drug ingredient) Drug/Non Drug Allergy documented on EMR Reaction Allergy Type Onset Date Status Substance with sulfonamide structure and antibacterial mechanism of action (substance) Sulfa Antibiotics stomach upset Drug Allergy Active Results Component Value Reference Range Notes HEMOGLOBIN A1C (GLYCOHEMOGLO BIN) Reviewed date:11/07/2023 09:32:32 AM Interpretation: Performing Lab: Notes/Report: TOTAL HEMOGLOBIN (HGBA1C) 7.8 Reason For Referral No Information Medications Medication SIG (Take, Route, Frequency, Duration) Notes Start Date End Date Status Spironolactone 50 MG 1 tablet Orally Onc e a day Active Simvastatin Once a day Active Daily Vitamin Active Night Splint AFO - L1930 as directed 11/07/2023 Active Omeprazole Active Nadolol 20 MG 2 tablets Orally Onc e a day Active Sertraline HCl 25 MG 1 tablet Orally Onc e a day Active Physical Therapy . . . 2-3x/week; Duration: 3-4 weeks 11/07/2023 Active rOPINIRole HCl Activ e Fiasp 100 UNIT/ML as directed Injection Active Vitamin A 3 MG (75828 UT) 1 capsule with food or milk Orally Once a day Active Ferrous Sulfate 325 (65 Fe) MG 1 tablet Orally Three times a Week Active Tresiba Active metFORMIN HCl 1000 MG 1 tablet with a me al Orally Once a day Active Keflex 500 MG 1 capsule Orally malinda ry 12 hrs; Duration: 7 days 12/26/2015 Not-Taking Furosemide 20 MG 1 tablet Orally Once a day Active Premarin Not-Taking traZODone HCl Active Social History Alcohol Screen Question Answer Notes Did you have a drink containing alcohol in the p ast year? No Points 0 Interpretation Negative Tobacco use other than smoking: Question Answer Notes Are you an other tobacco user? No Problems Problem Type SNOMED Code ICD Code Onset Dates Problem Status W/U Status Risk Notes Problem Acquired hallux valgus (43496429) Hallux valgus (acquired), left foot (M20.12) Active confirmed Problem Acquired hallux valgus (80391922) Hallux valgus (acquired), right foot (M20.11) Active confirmed Problem Polyneuropathy due to type 2 diabetes mellitus (133994079) Type 2 diabetes mellitus with diabetic polyneuropathy (E11.42) Active confirmed Vital Signs Height 5' 3 in 11/07/2023 Weight 170 lbs lbs 11/07/2023 BMI 30.11 kg/m2 11/07/2023 Procedures Procedure Date Ordered Date Performed Result Body Sit e 08471-KKRL SKIN LESIONS, 2 TO 4 11/07/2023 N/A [id number] DYSTROPHIC NAILS ANY # 11/07/2023 N/A Encounters Encounter [facility] Date [facility] [address] 11/07/2023 Osman Willis Type 2 diabetes mellitus with diabetic polyneuropathy E11.42 ; Plantar fascial fibromatosis M72.2 ; Hallux valgus (acquired), left foot M20.12 ; Hallux valgus (acquired), right foot M20.11 ; Pain in left foot M79.672 and Pain in right foot M79.[address] [facility] [address] 11[facility]07[facility] [address] 11/07/2023 Osman Willis Assessments Encounter Date Diagnosis (ICD Code) Assessment Notes Treatment Notes Treatment Clinical Notes Section Notes 11/07/2023 Plantar fascial fibromatosis (ICD-10 - M72.2) Patient Educated with: HEEL CORD STRETCHES.pdf (HEEL CORD STRETCHES.pdf ) Patient Educated with: JC THERAPY.pdf (RICE THERAPY.pdf) 11/07/2023 Type 2 diabetes mellitus with diabetic polyneuropathy (ICD-10 - E11.42) 11/07/2023 Hallux valgus (acquired), left foot (ICD-10 - M20.12) 11/07/2023 Hallux valgus (acquired), right foot (ICD-10 - M20.11) 11/07/2023 Pain in left foot (ICD-10 - M79.672) 11/07/2023 Pain in right foot (ICD-10 - M79.671) Plan Of Treatment Pending Test Test Name Order Date X ray : Foot, left 3V 11/07/2023 X ray : Foot, right 3V 11/07/2023 45640-Unlbjgqf Plate 12/20/2015 06326- Debride <25 sq cm 12/26/2015 52248-DLES SKIN LESIONS, 2 TO 4 11/07/19 24 Y6004-DHRAOEOU DYSTROPHIC NAILS ANY # Next Appt Details Provider Name:Ilan Moon , 11/02/2024 11:00:00 AM, [address] [place] [address], [phone], Insurance Providers Payer Name Payer Address Payer Phone Subscriber Number Group Number Insured Name Patient Relationship to Insured Coverage Start Date Coverage End Date Medicare National Govt [employer] [address] [place] [address] [id number] Gwendolyn Alvarez Self - patient is the insured [employer] [facility] [address] [place] [address] [id number] Gwendolyn Alvarez Self - patient is the insured Medical (General) History Medical History History ICD Code Back,Hip,and Knee pain Measles Mumps Chicken pox Joint implants/screws Psoriasis Sciatica chronic sinusitis Anemia Anxiety Arthritis CAD (Cholesterol) Depression Diabetes mellitus Hiatal hernia Liver disease Cirrhosis, liver Numbness Reflux ( GERD) sinusitis Surgical History Surgery Date(Month/Year) 4 back surgeries 1978,1999
--- OUTSIDE RECORDS SUMMARY | 2024-10-26 16:31 | XMS_ITS | Encounter Summary ---
Author Organization [facility] Address [address] [place] [address] [address] [place] [address] Phone Care Team Providers Care Ocular Care Aide Name Role Phone Andre Jarvis DO Primary Care Provider Briseida Wang Unavailable Shaun Escobedo DO Unavailable [phone] Felice Mtz MD Primary Care Provider Reason for Visit * Auth/Cert Specialty Diagnoses / Procedures Referred By Armando t Referred To Contact Diagnoses Basal cell carcinoma of skin of right lower eyelid, including canthus RLL BCC (basal cell carcinoma), eyelid, right [C44.111] Procedures NC FULL THICK GRFT NOS,EAR,LID <20 SQCM NC ADJ TISS XFER LID,NOS,EAR <10 SQCM FULL THICKNESS SKIN GRAFT EYELID Referral ID Status Reason Start Date Expiration Date Visits Re quested Visits Authorized [id number] 1 1 Encounter Details Date Type Department Care Team (Late st Contact Info) Description 02/24/2018 Hospital Encounter [facility] DEPT [address] [place] [address] Scottie Garcia MD [address] [place] [address] [place] [address] [email or web address] Social History Tobacco Use Types Packs/Day Years Used Date Smoking Tobacco: Former Cigarettes 2 14 1 968 - 1981 Smokeless Tobacco: Never Alcohol Use Standard Drinks/Week [...] your housing situation today? I have jelena sing 08/23/2024 How many times have you move [...] 8:40 AM EDT Cara Ramirez RN * Dimmit Suicide Severity Rating Scale (Screener/Recent Self-Report) Question [...] Description 11/08/2024 1:45 PM EDT Office Visit [facility] Op[facility]mology [facility] [address] [place] [address] Debra Nielson MD, PhD [address] [place] [address] [email or web address] documented as of this encounter Visit Diagnoses Not on filedocumented in this encounter Care Teams Ocular Care Aide Relationship Specialty Start Date End Date Andre Jarvis DO [address] [place] [address] PCP - General 08/17/13 08/22/24 Felice Mtz MD [address] [place] [address] PCP - General Internal Medicine 08/23/24 Briseida Wang PA [address] [place] [address] [email or web address] Physician Bill Cutter Transplant Hepatology 01/23/21 Shaun Escobedo DO [facility] [place] [address] Family Medicine 08/27/22 documented as of this encounter Additional Source Comments The information contained in this document represents components of the legal health record. It is not the complete legal health record.[facility]
--- OUTSIDE RECORDS SUMMARY | 2024-10-26 16:31 | XMS_ITS | Clinical Summary ---
Author Organization [facility] Address [address] [place] [address] Care Team Providers Care Auction Assistant Name Role Phone Andre Jarvis Primary Care [...] Influenza, High Dose Seasona l, Preservative Free (FLUZONE HIGH-DOSE) 11/22/2019 Influenza, High Dose Seasona l, Quadrivalent [...] Vaccine, Adsorbed 02/05/2019 Zoster Vaccine, Live 02/18/2016 Family History Medical History Relation Name Comments Pancreatic cancer Brother 1 Aortic aneurysm Father Heart disease Father Hypertension Father Diabetes Mother Heart disease Mother Heart failure Mother Hypertension Mother Heart disease Sister 1 Heart disease Sister 2 Breast cancer Sister 3 Relation Name Status Comments Brother 1 Brother 2 Alive Father Mother Sister 1 Alive Sister 2 Alive Sister 3 Alive Sister 4 Alive Sister 5 Alive Social History Tobacco Use Types Packs/Day Years [...] 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 Not on file Not [...] 11/21/2020 12:42 PM EDT Plan of Treatment Health Maintenance Due Date Last Done Comments Cologuard 1955 Colon Cancer Screening 1955 Colonoscopy 1955 FOBT / Fit Test 1953 Sigmoidoscopy 1955 Medicare AWV 1954 Mammogram 1993 RSV Vaccine (60+ years old a nd patients) (1 - Risk 60-74 years 1-dose series) 2013 Alcohol/Substance Use Screening 02/18/2024 Depression Screening and Follow-Up 02/18/2024 Health Care Proxy Review 02/18/2024 Social Drivers of Health Thea ual Screening 02/18/2024 COVID-19 Vaccine (7 - 2024-2 6 season) 2024 02/13/2021, 01/17/2021, 06/02/2020, Additional history exists Influenza Vaccine (#1) 2024 , 11/05/2023, 11/27/2022, Additional history exists DTaP,Tdap,and Td Vaccines (2 - Td or Tdap) 02/05/2029 02/05/2019 Hepatitis B Vaccines Completed 03/15/2019, 02/06/20 Hepatitis C Screening Completed 07/13/2019 , 07/13/2019, 02/01/2019 Osteoporosis Screening Completed 07/13/2019 Zoster Vaccines Completed 05/15/2022, 11/18, 02/18/2016 Pneumococcal Vaccine: 50+ Years Completed 11/27/2022, 08/16/2019, 02/05/2019 Procedures * Due to [place] [employer] law, this organization might not be sharing negative HIV tests. Procedure Name Priority Date/Time Associated Diagnosis Comments HEPATITIS C ANTIBODY W/REFLEX TO HCV RNA, QUANTITATIVE PCR Routine 02/01/2019 12:11 PM EST Encounter for pre-transplant evaluation for liver transplant from Last 3 Months or Most Recently Relevant to Health Maintenance Results * Due to [place] [employer] law, this organization might not be sharing negative HIV tests. * Hepatitis C Antibody w/Reflex to PCR (02/01/2019 12:11 PM EST) Hepatitis C Antibody NON-REACT JANA NON-REACT JANA 02/02/2019 2:30 AM EST [facility] Signal To Cut-Off 0.01 <1.00 02/02/2019 2:30 AM EST [facility] Comment: HCV antibody was non-reactive. There is no laboratory evidence of HCV infection. In most cases, no further action is required. However, if recent HCV exposure is suspected, a test for HCV RNA (test code 93863) is suggested. For additional information please refer to http://education.[employer]/faq/EBF07o4 (This link is being provided for informational/ educational purposes only.) Blood specimen (specimen) Structure of peripheral vein / Unknown Venipuncture / Unknown 02/01/2019 12:11 PM EST 02/01/2019 12:27 PM EST Narrative [facility] - 02/02/2019 2:30 AM EST [facility] Received Date:[id number] us Joo Raymundo MD LAB BLOOD ORDERABLES Final Re sult [facility] [address] [facility] 3rd Floor, [place] [address], [place] [phone] [facility] [address], [place] [address], [place] [phone] from Last 3 Months or Most Recently Relevant to Health Maintenance Insurance MEDICARE [facility] SUPP MEDICARE [facility] SUPP Advance Directives Documents on File Type Date Recorded Patient Pitch Filler Expl [facility] Health Care Proxy 02/16/2019 12:20 PM Care Teams Auction Assistant Relationship Specialty Start Date End Date Andre Jarvis [address] [place] [phone] PCP - General Internal Medicine 01/19/19
--- OUTSIDE RECORDS SUMMARY | 2024-10-26 16:31 | XMS_ITS | Encounter Summary ---
Author Organization [facility] Address [address] [place] [address] [place] [address] Phone Care Team Providers Care Shrimp Packer Name Role Phone Andre Jarvis DO Primary Care Provider Briseida Wang PA Unavailable Shaun Escobedo DO Unavailable [phone] Felice Mtz MD Primary Care Provider Encounter Details Date Type Department Care Team (Latest Contact Info) Description 08/07/2018 Transcribe Orders [facility] [place] [address] [address] Andre Jarvis, DO [address] [place] [address] Encounter for hearing test (Primary Dx) Social History Tobacco Use Types Packs/Day Years Used Date Smoking Tobacco: Former Cigarettes Q uit: 07/22/1996 Smokeless Tobacco: Never Alcohol Use Standard Drinks/Week Comments No 0 (1 standard drink = 0.6 oz pur e alcohol) Comments Unknown Sex and Gender Information Value Date Recorded Sex Assigned at Female 08/23/2024 8:41 AM EDT Legal Sex Female 12:47 AM EDT Gender Identity Female 08/23/2024 8:41 AM EDT Sexual Orientation Something else 08/23/2024 8: 41 AM EDT documented as of this encounter Plan of Treatment Upcoming Encounters Date Type Department Care Team (Late st Contact Info) Description 11/08/2024 1:45 PM EDT Office Visit [facility] LW [address] [place] [address] Debra Nielson MD, PhD [address] [place] [address] [email or web address] Scheduled Orders Name Type Priority Associated Diagnoses Orde r Schedule Hearing Test Audiology Routine Encounter for hearing test Expected: 08/07/2018, Expires: 11/07/2018 documented as of this encounter Visit Diagnoses Diagnosis Encounter for hearing test- Primary documented in this encounter Care Teams Shrimp Packer Relationship Specialty Start Date End Date Andre Jarvis DO [address] [place] [address] PCP - General 08/17/13 08/22/24 Felice Mtz MD [address] [place] [address] PCP - General Internal Medicine 08/23/24 Briseida Wang PA [address] [place] [address] [email or web address] Physician Safe Technician Transplant Hepatology 01/23/21 Shaun Escobedo DO [address] [place] [address] Family Medicine 08/27/22 documented as of this encounter Additional Source Comments The information contained in this document represents components of the legal health record. It is not the complete legal health record.[facility]
--- OUTSIDE RECORDS SUMMARY | 2024-10-26 16:31 | XMS_ITS | Encounter Summary ---
Author Organization [facility] Address [address] [place] [address] [place] [address] Phone Care Team Providers Care Technology Analyst Name Role Phone Andre Jarvis DO Primary Care Provider [phone] Briseida Wang Unavailable [phone] Shaun Escobedo DO Unavailable [phone] Felice Mtz MD Primary Care Provider [phone] Encounter Details Date Type Department Care Team (Late st Contact Info) Description 02/24/2018 Procedure Pass [facility] PERIOP DEPT [address] [place] [address] Social History Tobacco Use Types Packs/Day Years [...] Description 11/08/2024 1:45 PM EDT Office Visit [facility] LW [address] [place] [address] Debra Nielson MD, PhD [address] [place] [address] [email or web address] documented as of this encounter Visit Diagnoses Not on filedocumented in this encounter Care Teams Technology Analyst Relationship Specialty Start Date End Date Andre Jarvis DO [address] [place] [address] PCP - General 08/17/13 08/22/24 Felice Mtz MD [address] [place] [address] PCP - General Internal Medicine 08/23/24 Briseida Wang PA [facility] [place] [address] [email or web address] Physician Sat Instructor Transplant Hepatology 01/23/21 Shaun Escobedo DO [facility] [place] [address] Family Medicine 08/27/22 documented as of this encounter Additional Source Comments The information contained in this document represents components of the legal health record. It is not the complete legal health record.[facility]
--- OUTSIDE RECORDS SUMMARY | 2024-10-26 16:31 | XMS_ITS | Encounter Summary ---
Author Organization [facility] Address [address] [facility] [address] [place] [address] Phone Care Team Providers Care Public Health Teacher Name Role Phone Andre Jarvis DO Primary Care Provider [phone] Shaun Escobedo DO Unavailable [phone] Felice Mtz MD Primary Care Provider [phone] Encounter Details Date Type Department Care Team (Late st Contact Info) Description 10/17/2022 Procedure Pass [facility], Ct Scan - [address] [address] Social History Tobacco Use Types Packs/Day Years [...] on file 06/13/2022 No 06/13/2022 No 06/13/2022 Digital Access Answer Date Recorded No 07/15/2022 No 07/15/2022 Reliable internet access at home? Not on file 07/15/2022 Device with a working camera? Not on file Intimate Partner Violence Answer Date R ecorded Are you denied basic needs s uch as food, clothing, or medical care? No 10/17/2022 In the past 12 months have y ou been in a relationship with a person who hurts, threatens, or tries to control you? No 10/17/2022 Are you denied basic needs s uch as food, clothing, or medical care? No 10/17/2022 In the past 12 months have y ou been in a relationship with a person who hurts, threatens, or tries to control you? No 10/17/2022 Comments Unknown Sex and Gender Information Value Date Recorded Sex Assigned at Female 08/23/2024 8:41 AM EDT Legal Sex Female 12:47 AM EDT Gender Identity Female 08/23/2024 8:41 AM EDT Sexual Orientation Something else 08/23/2024 8: 41 AM EDT documented as of this encounter Functional Status * Calculated C-SSRS Risk Score (Lifetime/Recent) Answer Date of Assessment Author No Risk Indicated 10/17/2022 5:06 AM EDT Natalia Carl RN * [place] Suicide Severity Rating Scale (Screener/Recent Self-Report) Question Answer Date of Assessment Author 1. Wish to be (Past 1 Month) No 10/17/2022 5:06 AM EDT Natalia Olivarez RN 2. Non-Specific Active Suicidal Thoughts (Past 1 Month) No 10/17/2022 5:06 AM EDT Natalia Olivarez, AMY 6. Suicidal Behavior (Lifetime) No 10/17/2022 5:06 AM EDT Natalia Olivarez, AMY documented as of this encounter Plan of Treatment Upcoming Encounters Date Type Department Care Team (Late st Contact Info) Description 11/08/2024 1:45 PM EDT Office [place] [facility] LW [address] [place] [address] Debra Nielson MD, PhD [address] [place] [address] [email or web address] documented as of this encounter Visit Diagnoses Not on filedocumented in this encounter Care Teams Public Health Teacher Relationship Specialty Start Date End Date Andre Jarvis DO [address] [place] [address] PCP - General 08/17/13 08/22/24 Felice Mtz MD [address] [place] [address] PCP - General Internal Medicine 08/23/24 Shaun Escobedo DO [address] [place] [address] Family Medicine 08/27/22 documented as of this encounter Additional Source Comments The information contained in this document represents components of the legal health record. It is not the complete legal health record.[facility]
[2024-10-26 17:24] LABS: B Type Natriuretic Peptide 141 pg/mL (<100)
== END 2024-10-26 13:46 | disposition home or self-care (01) ==
LOC: HO.HMGCLDS 13:45
PROVIDERS: PCP Internal Medicine; Visit Provider Internal Medicine Gastroenterology
DX: K72.90 Hepatic failure, unspecified without coma (principal); E87.70 Fluid overload, unspecified
CPT/HCPCS: 36415; 83880

== ENCOUNTER 2024-11-05 14:58 | Outpatient (REF) | payer MEDICARE, SELFPAY ==
--- OUTSIDE RECORDS SUMMARY | 2024-11-05 15:02 | XMS_ITS | Clinical Summary ---
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 Procedure Name Priority Date/Time Associated Diagnosis Comments HEPATITIS C ANTIBODY W/REFLEX TO HCV RNA, QUANTITATIVE PCR Routine 02/01/2019 12:11 PM EST Encounter for pre-transplant evaluation for liver transplant from Last 3 Months or Most Recently Relevant to Health Maintenance Results * Due to [place] [employer] law, this organization might not be sharing negative HIV tests. * Hepatitis C Antibody w/Reflex to PCR (02/01/2019 12:11 PM EST) Hepatitis C Antibody NON-REACT JANA NON-REACT JANA 02/02/2019 2:30 AM EST [employer] Signal To Cut-Off 0.01 <1.00 02/02/2019 2:30 AM EST [employer] Comment: HCV antibody was non-reactive. There is no laboratory evidence of HCV infection. In most cases, no further action is required. However, if recent HCV exposure is suspected, a test for HCV RNA (test code 84453) is suggested. For additional information please refer to http://education.[employer]faq/SPW04t6 (This link is being provided for informational/ educational purposes only.) Blood specimen (specimen) Structure of peripheral vein / Unknown Venipuncture / Unknown 02/01/2019 12:11 PM EST 02/01/2019 12:27 PM EST Narrative [facility] 02/02/2019 2:30 AM EST [facility] Received Date:[id number] us Joo Raymundo MD LAB BLOOD ORDERABLES Final Re sult [facility] [address] [facility] 3rd Floor, [place] [address], [place] [phone] [employer] [address] Floor, [place] [address], [place] [phone] from Last 3 Months or Most Recently Relevant to Health Maintenance Insurance MEDICARE [facility] SUPP MEDICARE [facility] SUPP Advance Directives Documents on File Type Date Recorded Patient Scientist Immunology Expl [facility] Health Care Proxy 02/16/2019 12:20 PM Care Teams Ammunition Assembly Laborer Relationship Specialty Start Date End Date Andre Jarvis [address] [place] [address] PCP - General Internal Medicine 01/19/19
--- OUTSIDE RECORDS SUMMARY | 2024-11-05 15:02 | XMS_ITS | Encounter Summary ---
Author Organization [facility] Address [address] [facility] [address] [place] [address] Phone Care Team Providers Care Certification Engineer Name Role Phone Andre Jarvis DO Primary Care Provider Shaun Escobedo DO Unavailable [phone] Felice Mtz MD Primary Care Provider [phone] Encounter Details Date Type Department Care Team (Late st Contact Info) Description 10/17/2022 Procedure Pass [facility], Ct Scan - [address] [address] Social History Tobacco Use Types Packs/Day Years [...] 5:06 AM EDT Natalia Carl RN * [place] Suicide Severity Rating Scale (Screener/Recent Self-Report) Question Answer Date of Assessment Author 1. Wish to be (Past 1 Month) No 10/17/2022 5:06 AM EDT Natalia Olivarez, AMY 2. Non-Specific Active Suicidal Thoughts (Past 1 Month) No 10/17/2022 5:06 AM EDT Natalia Olivarez, AMY 6. Suicidal Behavior (Lifetime) No 10/17/2022 5:06 AM EDT Natalia Olivarez, AMY documented as of this encounter Plan of Treatment Upcoming Encounters Date Type Department Care Team (Late st Contact Info) Description 11/08/2024 1:45 PM EDT [place] [facility] LW [address] [place] [address] Debra Nielson MD, PhD [address] [place] [address] [email or web address] documented as of this encounter Visit Diagnoses Not on filedocumented in this encounter Care Teams Certification Engineer Relationship Specialty Start Date End Date Andre Jarvis DO [address] [place] [address] PCP - General 08/17/13 08/22/24 Felice Mtz MD [address] [place] [address] PCP - General Internal Medicine 08/23/24 Shaun Escobedo DO [address] [place] [address] Family Medicine 08/27/22 documented as of this encounter Additional Source Comments The information contained in this document represents components of the legal health record. It is not the complete legal health record.[facility]
--- OUTSIDE RECORDS SUMMARY | 2024-11-05 15:03 | XMS_ITS | Encounter Summary ---
Author Organization [facility] Address [address] [place] [address] [place] [address] Phone Care Team Providers Care Flatlock Sewing Machine Operator Name Role Phone Andre Jarvis DO Primary Care Provider Briseida Wang PA Unavailable [phone] Shaun Escobedo DO Unavailable [phone] Felice Mtz MD Primary Care Provider [phone] Encounter Details Date Type Department Care Team (Latest Contact Info) Description 08/07/2018 Transcribe Orders [facility] Audiology [address] [address] Andre Jarvis, DO [address] [place] [address] Encounter for hearing test (Primary Dx) Social [...] Description 11/08/2024 1:45 PM EDT Office Visit [facility]astics LW [address] [place] [address] Debra Nielson MD, PhD [address] [place] [address] [email or web address] Scheduled Orders Name Type Priority Associated Diagnoses Orde r Schedule Hearing Test Audiology Routine Encounter for hearing test Expected: 08/07/2018, Expires: 11/07/2018 documented as of this encounter Visit Diagnoses Diagnosis Encounter for hearing test- Primary documented in this encounter Care Teams Flatlock Sewing Machine Operator Relationship Specialty Start Date End Date Andre Jarvis DO [address] [place] [address] PCP - General 08/17/13 08/22/24 Felice Mtz MD [address] [place] [address] PCP - General Internal Medicine 08/23/24 Briseida Wang PA [address] [place] [address] [email or web address] Physician Production Line Assembler Transplant Hepatology 01/23/21 Shaun Escobedo DO [address] [place] [address] Family Medicine 08/27/22 documented as of this encounter Additional Source Comments The information contained in this document represents components of the legal health record. It is not the complete legal health record.[facility]
--- OUTSIDE RECORDS SUMMARY | 2024-11-05 15:03 | XMS_ITS | Encounter Summary ---
Author Organization [facility] Address [address] [place] [address] [place] [address] Phone Care Team Providers Care Radiological Equipment Specialist Name Role Phone Andre Jarvis DO Primary Care Provider Briseida Wang Unavailable Shaun Escobedo DO Unavailable [phone] Felice Mtz MD Primary Care Provider [phone] Encounter Details Date Type Department Care Team (Late st Contact Info) Description 02/24/2018 Procedure Pass [facility] PERIOP DEPT [address] [place] [address] Social History Tobacco Use Types Packs/Day Years [...] Visit [facility] LW [address] [place] [address] Debra Nielson MD, PhD [address] [place] [address] [email or web address] documented as of this encounter Visit Diagnoses Not on filedocumented in this encounter Care Teams Radiological Equipment Specialist Relationship Specialty Start Date End Date Andre Jarvis DO [address] [place] [address] PCP - General 08/17/13 08/22/24 Felice Mtz MD [address] [place] [address] PCP - General Internal Medicine 08/23/24 Briseida Wang PA [address] [place] [address] [email or web address] Physician Yard Supervisor Cotton Gin Transplant Hepatology 01/23/21 Shaun Escobedo DO [address] [place] [address] Family Medicine 08/27/22 documented as of this encounter Additional Source Comments The information contained in this document represents components of the legal health record. It is not the complete legal health record.[facility]
--- OUTSIDE RECORDS SUMMARY | 2024-11-05 15:03 | XMS_ITS | Clinical Summary ---
Author Organization [facility] Address [address] [facility] [address] [place] [address] Phone Care Team Providers Care Patcher Helper Name Role Phone Shaun Escobedo DO Unavailable [phone] Felice Mtz MD Primary Care Provider Allergies Active Allergy Reactions [...] Active ferrous sulfate 324 mg (65 mg cheesh-na iron) TbEC TAKE 1 TABLET (65 MG [...] mL, 11 Refills, Maintenance, 09/10/23 13:46:00 EDT, [facility]/pharmacy #[id number], Partial fill upon patient request if the prescription is for a schedule II... 4 Active vitamin A 46065 UNIT capsule Take 3,000 mcg by mouth. [...] AM EDT Emergency [facility] Emergency Department [address] [place] [address] Karime Soriano MD, JERAD Discharge Disposition: Home or Self Care 08/23/2024 Ophth Exam [facility] Emergency Department [address] [place] [address] Karime Soriano MD, JERAD from Last 3 [...] 3.5 mos) Heart dis ease 1973- at [place] Social History Tobacco Use Types Packs/Day Years [...] Description 11/08/2024 1:45 PM EDT Office Visit [facility] LW [address] [place] [address] Debra Nielson MD, PhD [address] [place] [address] [email or web address] Health Maintenance Due Date Last Done Comments [...] EDT) SODIUM 135 133 - 146 mmol/L [facility] CHLORIDE 98 96 - 108 mmol/L [facility] POTASSIUM 4.0 3.3 - 5.1 mmol/L [facility] CO2 24 21 - 35 mmol/L [facility] BUN 16 6 - 19 mg/dL [facility] CREATININE 1.00 0.5 - 1.5 mg/dL [facility] GLUCOSE 414(H) 70 - 99 mg/dL [facility] CALCIUM 9.4 8.4 - 10.3 mg/dL [facility] EGFR 61 >59 mL/min/1.7 3m2 [facility] Comment:Estimated glomerular filtration rate calculated using the CKD-EPI refit equation. ANION GAP 17 10 - 20 mmol/L [facility] Blood 10/17/2022 5:19 AM EDT 10/17/2022 5:28 AM EDT Kobi Johnson MD LAB BLOOD ORDERABL ES Final Result Performing Organization Address City/[facility]/ZIP Co de Phone Number [facility] [address] [place] [address] * Hepatitis C antibody, qualitative (02/05/2021 11:01 AM EST) HCV ANTIBODY Negative Negative [facility] Comment:Antibodies to HCV no t detected. Does not exclude the possibility of exposure to HCV. 02/05/2021 11:0 1 AM EST 02/05/2021 12:13 PM EST Ginny Stanley FIELD AGRONOMIST LAB BLOOD ORDERABLES Final Re sult Performing Organization Address [facility] Co de Phone Number [address] [address] * (ABNORMAL) Lipid panel (02/05/2021 11:01 AM EST) HDL 44 35 - 100 mg/dL [facility] CHOLESTEROL 114 <200 mg/dL [facility] TRIGLYCERIDES 194(H) 40 - 150 mg/dL [facility] LDL 31(L) 50 - 129 mg/dL [facility] CARDIAC RISK RATIO 2.6 0.0 - 5.0 [facility] NON-HDL CHOLESTEROL 70 mg/dL [facility] Comment:NCEP ATP III guideli arlene suggest a non-HDL cholesterol goal 30 mg/dl higher than the patient-specific LDL goal. 02/05/2021 11:0 1 AM EST 02/05/2021 12:13 PM EST Ginny Stanley FIELD AGRONOMIST LAB BLOOD ORDERABLES Final Re sult Performing Organization Address City[facility]/ZIP Co de Phone Number [address] [address] from Last 3 Months or Most Recently Relevant to Health Maintenance Insurance MEDICARE PART A & B [employer] MEDICARE PART A & B [employer] SU[employer] MEDICARE PART A & B [employer] SUPP[employer]MENT MEDICARE PART A & B [employer] SUPPLEMENT MEDICARE PART A & B [facility] MEDEX SUPPLEMENT MEDICARE PART A & B [employer] CROSS MEDEX SUPPLEMENT MEDICARE PART A & B [employer] [employer] SUPPLEMENT MEDICARE PART A & B [employer] SUPPLEMENT MEDICARE PART A & B Member Subscriber Plan / Payer ( fective 2018-Present) Name:Gwendolyn Alvarez Member ID:[id number] Relation to Subscriber:Self Name:Gwendolyn Alvarez Subscriber ID:[id number] Payer ID:[id number] Group ID:Not on file Type:Medicare Address: [employer] [address] [place] [phone] [employer] SUPPLEMENT MEDICARE PART A & B Member Subscriber Plan / Payer (Ef fective 2018-Present) Name:Gwendolyn Alvarez Member ID:[id number] Relation to Subscriber:Self Name:Gwendolyn Alvarez Subscriber ID:[id number] Payer ID:[id number] Group ID:Not on file Type:Medicare Address: [facility] [employer] [facility] [employer] [facility] [address] [place] [address] [employer] CROSS MEDEX SUPPLEMENT Care Teams Patcher Helper Relationship Specialty Start Date End Date Felice Mzt MD [address] [place] [address] PCP - General Internal Medicine 08/23/24 Shaun Escobedo DO Family Medicine 08/27/22 Additional Source Comments The information contained in this document represents components of the legal health record. It is not the complete legal health record.[facility]
--- OUTSIDE RECORDS SUMMARY | 2024-11-05 15:03 | XMS_ITS | Encounter Summary ---
Author Organization [facility] Address [address] [place] [place] [address] [address] [place] [address] Phone Care Team Providers Care Divemaster Name Role Phone Andre Jarvis DO Primary Care Provider Briseida Wang Unavailable [phone] Shaun Escobedo DO Unavailable [phone] Felice Mtz MD Primary Care Provider Reason for Visit * Auth/Cert Specialty Diagnoses / Procedures Referred By Armando t Referred To Contact Diagnoses Basal cell carcinoma of skin of right lower eyelid, including canthus RLL BCC (basal cell carcinoma), eyelid, right [C44.111] Procedures MN FULL THICK GRFT NOS,EAR,LID <20 SQCM MN ADJ TISS XFER LID,NOS,EAR <10 SQCM FULL THICKNESS SKIN GRAFT EYELID Referral ID Status Reason Start Date Expiration Date Visits Re quested Visits Authorized [id number] 1 1 Encounter Details Date Type Department Care Team (Late st Contact Info) Description 02/24/2018 Hospital Encounter [facility] DEPT [address] [place] [address] Scottie Garcia MD [address] [place] [address] - [place] [address] [email or web address] .[email or web address] Social History Tobacco Use Types Packs/Day Years [...] 8:40 AM EDT Cara Ramirez RN * [place] Suicide Severity Rating Scale (Screener/Recent Self-Report) Question [...] Description 11/08/2024 1:45 PM EDT Office Visit [facility] [address] [place] [address] Debra Nielson MD, PhD [address] [place] [address] [email or web address] documented as of this encounter Visit Diagnoses Not on filedocumented in this encounter Care Teams Divemaster Relationship Specialty Start Date End Date Andre Jarvis DO [address] [place] [address] PCP - General 08/17/13 08/22/24 Felice Mtz MD [address] [place] [address] PCP - General Internal Medicine 08/23/24 Briseida Wang PA [address] [place] [address] [email or web address] Physician Camouflage Specialist Transplant Hepatology 01/23/21 Shaun Escobedo DO [facility] [place] [address] Family Medicine 08/27/22 documented as of this encounter Additional Source Comments The information contained in this document represents components of the legal health record. It is not the complete legal health record.[facility]
--- OUTSIDE RECORDS SUMMARY | 2024-11-05 15:03 | XMS_ITS | Encounter Summary ---
Author Organization [facility] Address [address] [facility] [address] [place] [address] Phone Care Team Providers Care Nascar Driver Name Role Phone Shaun Escobedo DO Unavailable [phone] Felice Mtz MD Primary Care Provider [phone] Encounter Details Date Type Department Care Team (Late st Contact Info) Description 08/23/2024 Ophth Exam [facility] [address] [place] [address] Karime Soriano MD, JERAD [address] [place] [address] [email or web address] Social History Tobacco Use Types Packs/Day [...] 8:40 AM EDT Cara Ramirez RN * [place] Suicide Severity Rating Scale (Screener/Recent Self-Report) Question Answer Date of Assessment Author 1. Wish to be (Past 1 Month) No 08/23/2024 8:40 AM EDT Nasir Hamilton, AMY 2. Non-Specific Active Suicidal Thoughts (Past 1 Month) No 08/23/2024 8:40 AM EDT Nasir Hamilton RN 6. Suicidal Behavior (Lifetime) No 08/23/2024 8:40 AM EDT Nasir Hamilton RN documented as of this encounter Plan of Treatment Upcoming Encounters Date Type Department Care Team (Late st Contact Info) Description 11/08/2024 1:45 PM EDT Office Visit [facility] Ophthalmology Eye Plastics LW [address] [place] [address] Debra Nielson MD, PhD [address] [place] [address] [email or web address] documented as of this encounter Visit Diagnoses Not on filedocumented in this encounter Care Teams Nascar Driver Relationship Specialty Start Date End Date Felice Mtz MD [address] [place] [address] PCP - General Internal Medicine 08/23/24 Shaun Escobedo DO Family Medicine 08/27/22 documented as of this encounter Additional Source Comments The information contained in this document represents components of the legal health record. It is not the complete legal health record.[facility]
[2024-11-05 16:41] LABS: Alanine Aminotransferase 20 U/L (0-31); Albumin Level 3.7 g/dL (3.5-5.0); Alkaline Phosphatase 103 U/L (39-117); Anion Gap 10 (12-20); Aspartate Amino Transferase 45 U/L (5-31); Blood Urea Nitrogen 10 mg/dL (9-16); Calcium 8.6 mg/dL (8.4-10.2); Carbon Dioxide 30 mmol/L (22-29); Chloride 106 mmol/L (96-108); Estimated Glomerular Filt Rate > 60; Potassium 3.9 mmol/L (3.3-5.1); Sodium 142 mmol/L (135-145); Total Protein 6.8 g/dL (6.5-8.0)
== END 2024-11-05 14:59 | disposition home or self-care (01) ==
LOC: HO.HMGCLDS 14:58
PROVIDERS: PCP Internal Medicine; Visit Provider Internal Medicine Gastroenterology
DX: Z01.818 Encounter for other preprocedural examination (principal); K75.81 Nonalcoholic steatohepatitis (NASH)
CPT/HCPCS: 36415; 80053

== ENCOUNTER 2024-11-07 13:15 | Emergency (ER) | payer MEDICARE, SELFPAY ==
--- OUTSIDE RECORDS SUMMARY | 2024-11-02 07:00 | XMS_ITS ---
Author Organization [facility] Address [address] [place] [address] Care Team Providers Care Battery Assembler Name Role Phone Bibi SINGH, Felice Primary Care Provider Unavailabl Ilan Glasgow Unavailable [phone] Encounters Encounter Location Date Provider Diagnosis [address] [address] 11/02/2024 Ilan Moon Plan Of Treatment No Information Progress Notes * Gwendolyn BLANTONDOB: (69 yo F)Acc No.[id number]:11/02/2024 Progress Note Patient: Gwendolyn LEVY Provider: Suyapa Moon DPM :1955 A ge:69 Y S ex:Female Date:11/02/2024 Address:[address] [place] [address] [phone] Pcp:Felice Mtz MD Subjective: * Chief Complaints: * * Medical History: Objective: * Vitals: Assessment: Plan: * Treatment: * Images: * The named appointment provid er may or may not be the originator of this progress note, and it is not deemed complete until electronically signed by the appointment provider. Sign off status: Pending * Provider: Suyapa Moon DPM Date: 11/02/2024 Generated for Printi ng/Faxing/eTransmitting on: 11/07/2024 01:58 PM EDT
--- NOTE | ~2024-11-07 | CT_ITS ---
CLINICAL HISTORY: Diffuse abdominal pain CT abdomen and pelvis with contrast Comparison: US/SR - US ABDOMEN - 10/23/22 08:[address]/REG/SR - CT ABDOMEN PELVIS WITH IV CONTRAST - 08/13/22 19:59 EDT Findings: There is no consolidation or pleural effusion. There is a small hiatal hernia. There are changes of cirrhosis with marked nodularity of the liver contour. There is no suspicious liver lesion. The spleen is enlarged, measuring 16 cm in length, with interval increase since the prior study. There is pancreatic volume loss. There are peripelvic cysts within the bilateral kidneys. The adrenal glands are normal. There is a large amount of ascites. There are no calcified gallstones. There is borderline thickening of both large and small bowel. There is no bowel obstruction. Status post hysterectomy. Near-complete decompression of the urinary bladder. The appendix is not definitively seen. There is no gross evidence of appendicitis. Postsurgical changes of the lower lumbar spine. No acute fracture. IMPRESSION: 1. There are changes of cirrhosis with portal venous hypertension with progression. Splenomegaly with interval increase in size. Large amount of ascites is present, new since the prior study. 2. Borderline thickening of large and small bowel most likely on the basis of liver disease and ascites. This document has been electronically signed by: Yudith Vaz MD on 11/07/2024 15:22:33
[2024-11-07 13:27] VITALS: BP 142/90; PULSE 60; O2SAT 98
[2024-11-07 13:40] VITALS: BP 156/73; PULSE 61; RESP 18; TEMP 36.4; O2SAT 98; BMI 29.5
--- NOTE | 2024-11-07 13:43 | ED.ABDPAIN ---
HPI - Abdominal Pain General Chief Complaint: Abdominal Pain Stated Complaint: R SIDE PAIN,N/V/D, ABD SWELLING PER EMS Time Seen by Provider: 11/07/24 13:35 Source: patient, EMS and old records reviewed Mode of arrival: EMS Limitations: no limitations History of Present Illness ED Provider: DR. 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 No fever, no chills, intra-abdominal surgery is significant for a hysterectomy and back surgery through the abdomen, no dysuria, no frequency urination, no fever, no chills, +bowel movement, +passing flatus. Related Data Home Medications ?Medication ?Instructions ?Recorded ?Confirmed ascorbic acid (vitamin C) 500 mg 500 mg PO DAILY 08/13/22 09/17/23 tablet (Vitamin C) estradiol 0.01% (0.1 mg/gram) 1 appl vaginal BEDTIME 08/13/22 09/17/23 vaginal cream ferrous sulfate 324 mg (65 mg 324 mg PO DAILY 08/13/22 09/17/23 iron) tablet,delayed release furosemide 20 mg tablet 20 mg PO DAILY 08/13/22 09/17/23 hydroxyzine HCl 25 mg tablet 25 mg PO BEDTIME 08/13/22 09/17/23 metformin 500 mg tablet,extended 500 mg PO BID 08/13/22 09/17/23 release 24 hr nadolol 20 mg tablet 20 mg PO BEDTIME 08/13/22 09/17/23 omeprazole 40 mg capsule,delayed 40 mg PO DAILY@0630 08/13/22 09/17/23 release ropinirole 1 mg tablet 2 mg PO BEDTIME 08/13/22 09/17/23 sertraline 25 mg tablet 25 mg PO BEDTIME 08/13/22 09/17/23 simvastatin 20 mg tablet 20 mg PO BEDTIME 08/13/22 09/17/23 spironolactone 50 mg tablet 50 mg PO DAILY 08/13/22 09/17/23 trazodone 50 mg tablet 50 mg PO BEDTIME 08/13/22 09/17/23 vitamin A 3,000 mcg (10,000 unit) 3,000 mcg PO DAILY 08/13/22 09/17/23 capsule ergocalciferol (vitamin D2) 1,250 1,250 mcg PO QWEEK 11/07/24 mcg (50,000 unit) capsule insulin lispro 100 unit/mL 5 unit subcut DAILY 11/07/24 subcutaneous solution (Humalog U-100 Insulin) Previous Rx's ?Medication ?Instructions ?Recorded ondansetron 4 mg disintegrating 4 mg PO Q8H PRN nausea and 09/01/24 tablet vomiting 5 days #14 tabs Allergies Allergy/AdvReac Type Severity Reaction Status Date / Time penicillin V Allergy Unknown headache Verified 11/07/24 13:43 and vomiting Sulfa (Sulfonamide Allergy Unknown HEADACHE, Verified 11/07/24 13:43 Antibiotics) (SULFA NAUSEA (SULFONAMIDE ANTIBIOTICS)) Review of Systems Review of Systems All other systems are reviewed and are negative Constitutional: Reports as per HPI and Reports no additional constitutional complaints Eyes: Reports as per HPI and Reports no additional eye complaints Reports system reviewed and no additional complaints, except as documented Cardiovascular: Reports as per HPI and Reports no additional cardiovascular complaints Respiratory: Reports as per HPI and Reports no additional respiratory complaints Gastrointestinal: Reports as per HPI and Reports no additional gastrointestinal complaints Genitourinary: Reports no additional female genitourinary complaints Musculoskeletal: Reports no additional musculoskeletal complaints Skin/Breast: Reports system reviewed and no additional complaints, except as docu Psychiatric: Reports no additional psychiatric complaints Endocrine: Reports no additional endocrine complaints Hematologic/Lymphatic: Reports no additional hematologic/lymphatic complaints Allergic/Immunologic: Reports no additional allergic/immunologic complaints Reports system reviewed and no additional complaints, except as documented and Reports Abnormal speech present [facility] Past Medical History Medical History Diabetes Cirrhosis KAUFFMAN (nonalcoholic steatohepatitis) Elevated cholesterol Anxiety Renal stones Skin cancer Emphysema of lung Thrombocytopenia ARBEN (obstructive sleep apnea) Somnolence, daytime Surgical History Hx of appendectomy History of back surgery Hx of hysterectomy History of esophagogastroduodenoscopy (EGD) H/O colonoscopy Social History Social History Alcohol intake: never Patient Tobacco Use Status: Former Tobacco user Tobacco use type: Cigarette Cigarette Packs Per Day: 1 Years Smoked: 20 Smoked in Last 30 Days: No Use of substances other than those prescribed or required for medical reasons: No Advance Directives: No Advance Directives Information Provided: Yes Physical Exam ED Vital Signs: Vital Signs - 24 hr 11/07/24 13:40 11/07/24 15:10 11/07/24 15:11 Temperature 97.5 F 98.6 F Pulse Rate 61 71 Respiratory Rate 18 16 16 Blood Pressure 156/73 H 113/63 Pulse Oximetry 98 95 Oxygen Delivery Method Room Air Room Air 11/07/24 16:15 Temperature 98.6 F Pulse Rate 71 Respiratory Rate 16 Blood Pressure 113/63 Pulse Oximetry 95 Oxygen Delivery Method Room Air BMI result Body Mass Index 29.5 Vital signs have been reviewed and appear to be correct. Blood pressure elevated. Heart rate normal. Respiratory rate normal. Temperature normal. Oxygen saturation normal. Appearance: Alert. Oriented X3. No acute distress. Head: Normal external exam. Normocephalic. Atraumatic. No Cochran signs noted. No raccoon eyes noted Eyes: PERRLA. EOMI. Conjunctiva and sclera normal. Eyelids normal. ENT: TM's Normal. Pharynx normal. Uvula midline. Moist mucous membranes. No trismus noted. No drooling noted. No muffled voice noted. Neck: Normal inspection. Neck supple. FROM. No adenopathy. Thyroid Normal. No meningeal signs. No neck mass noted. CVS: Normal heart rate and rhythm. Heart sound normal. No murmurs noted. Pulses normal throughout. Respiratory: No respiratory distress. Painless inspiration. Breath sounds normal. No wheezes/rales/rhonchi noted. Chest nontender. No accessory muscle usage noted or decreased air movement noted. Abdomen: Soft and nontender. Bowel sounds normal in all 4 quadrants. No distention noted. No organomegaly noted. No visible injury noted. Back: No CVA tenderness. Full range of motion noted. Skin: Skin warm and dry. Normal skin color. Normal skin turgor. No rashes/lesions/lacerations noted. Extremities: No lower extremity edema. Extremities exhibit normal range of motion. Extremities nontender. Neuro: Oriented X 3. Cranial nerve exam: II-XII are grossly intact No motor deficit. No sensory deficit. Reflexes normal. Course Reevaluation(s) Reevaluation #1: Pain has improved significantly, repeat abdominal exam shows decreased tenderness, no fever, no WBCs leukocytosis with improvement of the abdominal pain making SBP is unlikely diagnosis especially the abdomen is not fully distended and the amount of the ascites on the CT is mild to moderate. Patient thinks her pain is related to her heavy breakfast of cereal with milk. and patient agreed on the plan to go home and return if worsening of patient's symptoms. Time: 15:42 Medical Decision Making Differential Diagnosis Differential Diagnoses: The differential diagnosis associated with the presentation includes (Pancreatitis, acute cholecystitis, SBP, colitis, diverticulitis, acute appendicitis, electrolyte derangement, severe anemia.) Admission/Observation Consideration of admission/observation: Escalation of care including admission/observation considered Lab Data MDM Lab Attestation statement: I reviewed the patient's lab results. 11/07/24 13:50 11/07/24 13:50 Labs: Lab Results 11/07/24 Range/Units 13:50 WBC 4.3 L (4.8-10.8) X10*3/uL RBC 4.39 (4.20-5.50) X10*6/uL Hgb 13.1 (12.0-16.0) g/dl Hct 38.4 (37.0-47.0) % MCV 87.5 (80.0-98.0) fL MCH 29.8 (27.0-33.0) pg MCHC 34.1 (31.0-35.0) g/dl RDW 14.2 (11.0-16.0) % Plt Count 67 L (160-400) X10*3/uL MPV 10.9 (9.4-12.3) fL Immature Gran % (Auto) 0.5 H (0.0-0.4) % Neut % (Auto) 72.8 (45-73) % Lymph % (Auto) 16.4 L (20-40) % Lander % (Auto) 9.4 (2-11) % Eos % (Auto) 0.7 (0-4) % Baso % (Auto) 0.2 (0-2) % Lymph # (Auto) 0.7 L (1.2-4.9) X10*3/uL Lander # (Auto) 0.4 (0.1-1.2) X10*3/uL Eos # (Auto) 0.0 (0.0-0.4) X10*3/uL Baso # (Auto) 0.0 (0.0-0.2) X10*3/uL Abs Immat Gran (auto) 0.02 (0.00-0.03) X10*3/uL Absolute Neuts (auto) 3.2 (2.0-8.3) x10*3/uL Absolute Nucleated RBC 0.000 (0.0-0.012) X10*3/uL Nucleated RBC % (auto) 0.0 (0.0-0.2) /100WBC PT 15.1 H (10.9-12.4) SEC INR 1.3 H (0.9-1.1) Sodium 141 (135-145) mmol/L Potassium 3.6 (3.3-5.1) mmol/L Chloride 106 (96-108) mmol/L Carbon Dioxide 27 (22-29) mmol/L Anion Gap 12 (12-20) BUN 9 (9-16) mg/dL Creatinine 0.79 (0.5-1.4) mg/dL Estim Creat Clear Calc 61.1 Estimated GFR > 60 Random Glucose 226 H (60-115) mg/dL Calcium 8.8 (8.4-10.2) mg/dL Total Bilirubin 1.0 (0.0-1.0) mg/dL Direct Bilirubin 0.4 (0.0-0.5) mg/dL AST 42 H (5-31) U/L ALT 17 (0-31) U/L Alkaline Phosphatase 103 (39-117) U/L Ammonia 29 (13-55) umol/L Total Protein 6.7 (6.5-8.0) g/dL Albumin 3.7 (3.5-5.0) g/dL Lipase 23 (8-78) U/L Independent Interpretation I performed an independent interpretation of an: CT Scan (Abdomen pelvis:1. There are changes of cirrhosis with portal venous hypertension with progression. Splenomegaly with interval increase in size. Large amount of ascites is present, new since the prior study. 2. Borderline thickening of large and small bowel most likely on the basis of liver diseas) Radiology Impression Discussion of test interpretation with radiology: I have reviewed the radiologist's reading. Medications Administered Discontinued Medications Generic Name Dose Route Start Last Admin Trade Name Tayla PRN Reason Stop Dose Admin Iohexol 100 ml 11/07/24 14:30 11/07/24 14:31 Iohexol 350 Mg/Ml 100 Ml Infus..Btl IV 11/07/24 14:31 85 ml ONCE ONE Administration Morphine Sulfate 2 mg 11/07/24 14:44 11/07/24 15:10 Morphine Sulfate 2 Mg/Ml Cartridge IVPUSH 11/07/24 14:45 2 mg ONCE ONE Administration Protocol Discharge Plan Discharge Clinical Impression: Abdominal pain Cirrhosis of liver Qualifiers: Hepatic cirrhosis type: unspecified hepatic cirrhosis Ascites presence: with ascites Qualified Code(s): K74.60 - Unspecified cirrhosis of liver Patient Disposition: Home, Self-Care Instructions: Abdominal Pain (ED) Prescriptions: No Action ergocalciferol (vitamin D2) 1,250 mcg (50,000 unit) capsule 1,250 mcg PO QWEEK insulin lispro [Humalog U-100 Insulin] 100 unit/mL solution 5 unit subcut DAILY ropinirole 1 mg tablet 2 mg PO BEDTIME trazodone 50 mg tablet 50 mg PO BEDTIME omeprazole 40 mg capsule,delayed release(DR/EC) 40 mg PO DAILY@0630 nadolol 20 mg tablet 20 mg PO BEDTIME simvastatin 20 mg tablet 20 mg PO BEDTIME sertraline 25 mg tablet 25 mg PO BEDTIME hydroxyzine HCl 25 mg tablet 25 mg PO BEDTIME furosemide 20 mg tablet 20 mg PO DAILY estradiol 0.01 % (0.1 mg/gram) cream 1 appl vaginal BEDTIME metformin 500 mg tablet extended release 24 hr 500 mg PO BID spironolactone 50 mg tablet 50 mg PO DAILY ferrous sulfate 324 mg (65 mg iron) tablet,delayed release (DR/EC) 324 mg PO DAILY vitamin A 3,000 mcg (10,000 unit) Capsule 3,000 mcg PO DAILY ascorbic acid (vitamin C) [Vitamin C] 500 mg Tablet 500 mg PO DAILY ondansetron 4 mg tablet,disintegrating 4 mg PO Q8H PRN (Reason: nausea and vomiting) 5 Days Qty: 14 0RF Referrals: Felice Mtz MD [Primary Care Provider, Medical] Interventions: ED Discharge Assessment Last Done: 11/07/24 16:15 Discharge Date/Time: 11/07/24 16:28 Print Language: Italian
--- OUTSIDE RECORDS SUMMARY | 2024-11-07 13:58 | XMS_ITS | Clinical Summary ---
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 Procedure Name Priority Date/Time Associated Diagnosis Comments HEPATITIS C ANTIBODY W/REFLEX TO HCV RNA, QUANTITATIVE PCR Routine 02/01/2019 12:11 PM EST Encounter for pre-transplant evaluation for liver transplant from Last 3 Months or Most Recently Relevant to Health Maintenance Results * Due to [place] [employer] law, this organization might not be sharing negative HIV tests. * Hepatitis C Antibody w/Reflex to PCR (02/01/2019 12:11 PM EST) Hepatitis C Antibody NON-REACT JANA NON-REACT JANA 02/02/2019 2:30 AM EST [facility] Signal To Cut-Off 0.01 <1.00 02/02/2019 2:30 AM EST [facility] Comment: HCV antibody was non-reactive. There is no laboratory evidence of HCV infection. In most cases, no further action is required. However, if recent HCV exposure is suspected, a test for HCV RNA (test code 68219) is suggested. For additional information please refer to http://education.iSnap/faq/UFM88i6 (This link is being provided for informational/ educational purposes only.) Blood specimen (specimen) Structure of peripheral vein / Unknown Venipuncture / Unknown 02/01/2019 12:11 PM EST 02/01/2019 12:27 PM EST Narrative [facility] - 02/02/2019 2:30 AM EST [facility] Received Date:[id number] us Joo Raymundo MD LAB BLOOD ORDERABLES Final Re sult [facility] [address] [facility] [address], [place] [address], [place] [phone] [employer] [facility] [address], [place] [address], [place] [phone] from Last 3 Months or Most Recently Relevant to Health Maintenance Insurance MEDICARE [facility] SUPP MEDICARE [facility] SUPP Advance Directives Documents on File Type Date Recorded Patient Consulting Database Administrator Expl [facility] Health Care Proxy 02/16/2019 12:20 PM Care Teams Quantitative Associate Relationship Specialty Start Date End Date Andre Jarvis [address] [place] [address] PCP - General Internal Medicine 01/19/19
--- OUTSIDE RECORDS SUMMARY | 2024-11-07 13:58 | XMS_ITS | Patient Health Record ---
Author Organization [facility] Address [address] [facility] [place] [address] Care Team Providers Care Shoe Lining Fitter Name Role Phone Felice Mtz MD Primary Care Provider Ilan Muñoz Unavailable [phone] Allergies Allergen (clinical drug ingredient) Drug/Non Drug Allergy documented on EMR Reaction Allergy Type Onset Date Status Substance with sulfonamide structure and antibacterial mechanism of action (substance) Sulfa Antibiotics stomach upset Drug Allergy Active Reason For Referral No [...] directed Injection Active Vitamin A 3 MG (07843 UT) 1 capsule with food or milk [...] Status Risk Notes Problem Acquired hallux valgus (54792011) Hallux valgus (acquired), left foot (M20.12) Active confirmed Problem Acquired hallux valgus (85051252) Hallux valgus (acquired), right foot (M20.11) Active confirmed Problem Polyneuropathy due to type 2 diabetes mellitus (389828057) Type 2 diabetes mellitus with diabetic polyneuropathy (E11.42) Active confirmed Encounters Encounter Location Date Provider Diagnosis [facility] [address] [place] [address] 11/02/2024 Ilan Moon Plan Of Treatment Pending Test Test Name Order Date X ray : Foot, left 3V 11/07/2023 X ray : Foot, right 3V 11/07/2023 [id number] Plate 12/20/2015 23850- Debride <25 sq cm 12/26/2015 [id number] SKIN LESIONS, 2 TO 4 11/07/19 24 [id number] DYSTROPHIC NAILS ANY # Insurance Providers Payer Name Payer Address Payer Phone Subscriber Number Group Number Insured Name Patient Relationship to Insured Coverage Start Date Coverage End Date Medicare National Govt Svcs Inc [address] [place] [place] [address] [id number] Gwendolyn Alvarez Self - patient is the insured [employer] Blue Shield [address] [place] [address] [id number] Gwendolyn Alvarez Self - patient is the insured Medical (General) History Medical History History ICD Code Back,Hip,and Knee pain Measles Mumps Chicken pox Joint implants/screws Psoriasis Sciatica chronic sinusitis Anemia Anxiety Arthritis CAD (Cholesterol) Depression Diabetes mellitus Hiatal hernia Liver disease Cirrhosis, liver Numbness Reflux ( GERD) sinusitis Surgical History Surgery Date(Month/Year) 4 back surgeries 1978,1999
--- OUTSIDE RECORDS SUMMARY | 2024-11-07 13:58 | XMS_ITS | Encounter Summary ---
Author Organization [facility] Address [address] [place] [address] [place] [address] Phone Care Team Providers Care Tubing Oiler Name Role Phone Andre Jarvis DO Primary Care Provider Briseida Wang PA Unavailable Shaun Escobedo DO Unavailable [phone] Felice Mtz MD Primary Care Provider [phone] Encounter Details Date Type Department Care Team (Latest Contact Info) Description 08/07/2018 Transcribe Orders [facility] [address] [address] Andre Jarvis, DO [address] [place] [address] Encounter for hearing test (Primary Dx) Social [...] Description 11/08/2024 1:45 PM EDT Office Visit [facility] [place] Ophthalmology [facility] LW [address] [place] [address] Debra Nielson MD, PhD [address] [place] [address] [email or web address] Scheduled Orders Name Type Priority Associated Diagnoses Orde r Schedule Hearing Test Audiology Routine Encounter for hearing test Expected: 08/07/2018, Expires: 11/07/2018 documented as of this encounter Visit Diagnoses Diagnosis Encounter for hearing test- Primary documented in this encounter Care Teams Tubing Oiler Relationship Specialty Start Date End Date Andre Jarvis DO [address] [place] [address] PCP - General 08/17/13 08/22/24 Felice Mtz MD [address] [place] [address] PCP - General Internal Medicine 08/23/24 Briseida Wang PA [address] [place] [address] [email or web address] Physician Real Estate Investor Transplant Hepatology 01/23/21 Shaun Escobedo DO [address] [place] [address] Family Medicine 08/27/22 documented as of this encounter Additional Source Comments The information contained in this document represents components of the legal health record. It is not the complete legal health record.[facility]
--- OUTSIDE RECORDS SUMMARY | 2024-11-07 13:59 | XMS_ITS | Encounter Summary ---
Author Organization [facility] Address [address] [facility] [address] [place] [address] Phone Care Team Providers Care Registered Nurse First Assistant Name Role Phone Andre Jarvis DO Primary Care Provider [phone] Shaun Escobedo DO Unavailable [phone] Felice Mtz MD Primary Care Provider [phone] Encounter Details Date Type Department Care Team (Late st Contact Info) Description 10/17/2022 Procedure Pass [facility], Ct Scan - [address] [address] Social History Tobacco Use Types Packs/Day Years [...] 5:06 AM EDT Natalia Carl RN * [place] Suicide Severity Rating Scale (Screener/Recent Self-Report) Question Answer Date of Assessment Author 1. Wish to be (Past 1 Month) No 10/17/2022 5:06 AM EDT Natalia Olivarez, AMY 2. Non-Specific Active Suicidal Thoughts (Past 1 Month) No 10/17/2022 5:06 AM EDT Natalia Olivarez, MAY 6. Suicidal Behavior (Lifetime) No 10/17/2022 5:06 AM EDT Natalia Olivarez, AMY documented as of this encounter Plan of Treatment Upcoming Encounters Date Type Department Care Team (Late st Contact Info) Description 11/08/2024 1:45 PM EDT Office Visit [facility] LW [address] [place] [address] Debra Nielson MD, PhD [address] [place] [address] [email or web address] documented as of this encounter Visit Diagnoses Not on filedocumented in this encounter Care Teams Registered Nurse First Assistant Relationship Specialty Start Date End Date Andre Jarvis DO [address] [place] [address] PCP - General 08/17/13 08/22/24 Felice Mtz MD [address] [place] [address] PCP - General Internal Medicine 08/23/24 Shaun Escobedo DO [address] [place] [address] Family Medicine 08/27/22 documented as of this encounter Additional Source Comments The information contained in this document represents components of the legal health record. It is not the complete legal health record.[facility]
--- OUTSIDE RECORDS SUMMARY | 2024-11-07 13:59 | XMS_ITS | Clinical Summary ---
Author Organization [facility] Address [address] [facility] [address] [place] [address] Phone Care Team Providers Care Nascar Racer Name Role Phone Shaun Escobedo DO Unavailable [phone] Felice Mtz MD Primary Care Provider Allergies [...] Active ferrous sulfate 324 mg (65 mg [place] iron) TbEC TAKE 1 TABLET (65 MG [...] mL, 11 Refills, Maintenance, 09/10/23 13:46:00 EDT, [facility]/pharmacy #[id number], Partial fill upon patient request if the prescription is for a schedule II... 4 Active vitamin A 49851 UNIT capsule Take 3,000 mcg by mouth. [...] AM EDT Emergency [facility] [address] [place] [address] Karime Soriano MD, JERAD Discharge Disposition: Home or Self Care 08/23/2024 Ophth Exam [facility] [address] [place] [address] Karime Soriano MD, JERAD from Last 3 [...] 3.5 mos) Heart dis ease 1973- at [place] Social History Tobacco Use Types Packs/Day Years [...] Description 11/08/2024 1:45 PM EDT Office Visit [facility] [address] [place] [address] Debra Nielson MD, PhD [address] [place] [address] [email or web address] Health Maintenance Due Date Last Done Comments [...] EDT) SODIUM 135 133 - 146 mmol/L [facility] CHLORIDE 98 96 - 108 mmol/L [facility] POTASSIUM 4.0 3.3 - 5.1 mmol/L [facility] CO2 24 21 - 35 mmol/L [facility] BUN 16 6 - 19 mg/dL [facility] CREATININE 1.00 0.5 - 1.5 mg/dL [facility] GLUCOSE 414(H) 70 - 99 mg/dL [facility] CALCIUM 9.4 8.4 - 10.3 mg/dL [facility] EGFR 61 >59 mL/min/1.7 3m2 [facility] Comment:Estimated glomerular filtration rate calculated using the CKD-EPI refit equation. ANION GAP 17 10 - 20 mmol/L [facility] Blood 10/17/2022 5:19 AM EDT 10/17/2022 5:28 AM EDT Kobi Johnson MD LAB BLOOD ORDERABL ES Final Result Performing Organization Address City/[facility]/ZIP Co de Phone Number [facility] [address] [place] [address] * Hepatitis C antibody, qualitative (02/05/2021 11:01 AM EST) HCV ANTIBODY Negative Negative [facility] Comment:Antibodies to HCV no t detected. Does not exclude the possibility of exposure to HCV. 02/05/2021 11:0 1 AM EST 02/05/2021 12:13 PM EST Ginny Stanley ORTHOTIST PROSTHETIST LAB BLOOD ORDERABLES Final Re sult Performing Organization Address City/[facility] Co de Phone Number [address] [address] * (ABNORMAL) Lipid panel (02/05/2021 11:01 AM EST) HDL 44 35 - 100 mg/dL [facility] CHOLESTEROL 114 <200 mg/dL [facility] TRIGLYCERIDES 194(H) 40 - 150 mg/dL [facility] LDL 31(L) 50 - 129 mg/dL [facility] CARDIAC RISK RATIO 2.6 0.0 - 5.0 [facility] NON-HDL CHOLESTEROL 70 mg/dL [facility] Comment:NCEP ATP III guideli arlene suggest a non-HDL cholesterol goal 30 mg/dl higher than the patient-specific LDL goal. 02/05/2021 11:0 1 AM EST 02/05/2021 12:13 PM EST Ginny Stanley ORTHOTIST PROSTHETIST LAB BLOOD ORDERABLES Final Re sult Performing Organization Address City/[facility]/ZIP Co de Phone Number [address] [address] from Last 3 Months or Most Recently Relevant to Health Maintenance Insurance MEDICARE PART A & B [employer] SUPPLEMENT MEDICARE PART A & B [employer] SUPPLEMENT MEDICARE PART A & B [employer] SUPPLEMENT MEDICARE PART A & B [employer] SUPPLEMENT MEDICARE PART A & B [facility] MEDEX SUPPLEMENT MEDICARE PART A & B [employer] MEDEX SUPPLEMENT MEDICARE PART A & B [employer] SUPPLEMENT MEDICARE PART A & B [employer] SUPPLEMENT MEDICARE PART A & B [employer] MED[employer] SUPPLEMENT MEDICARE PART A & B 3yy [employer] MEDEX SUPPLEMENT Care Teams Nascar Racer Relationship Specialty Start Date End Date Felice Mtz MD [address] [place] [address] PCP - General Internal Medicine 08/23/24 Shaun Escobedo DO Family Medicine 08/27/22 Additional Source Comments The information contained in this document represents components of the legal health record. It is not the complete legal health record.[facility]
--- OUTSIDE RECORDS SUMMARY | 2024-11-07 13:59 | XMS_ITS | Encounter Summary ---
Author Organization [facility] Address [address] [place] [address] [address] [place] [address] Phone Care Team Providers Care Importer Or Exporter Name Role Phone Andre Jarvis DO Primary Care Provider Briseida Wang Unavailable [phone] Shaun Escobedo DO Unavailable [phone] Felice Mtz MD Primary Care Provider Reason for Visit * Auth/Cert Specialty Diagnoses / Procedures Referred By Armando t Referred To Contact Diagnoses Basal cell carcinoma of skin of right lower eyelid, including canthus RLL BCC (basal cell carcinoma), eyelid, right [C44.111] Procedures ND FULL THICK GRFT NOS,EAR,LID <20 SQCM ND ADJ TISS XFER LID,NOS,EAR <10 SQCM FULL THICKNESS SKIN GRAFT EYELID Referral ID Status Reason Start Date Expiration Date Visits Re quested Visits Authorized [id number] 1 1 Encounter Details Date Type Department Care Team (Late st Contact Info) Description 02/24/2018 Hospital Encounter [facility] PERIOP DEPT [address] [place] [address] Scottie aGrcia MD [address] [place] [address] [place] [address] [email or web address] Social History Tobacco Use Types Packs/Day Years [...] 8:40 AM EDT Cara Ramirez RN * [place] Suicide Severity Rating Scale (Screener/Recent Self-Report) Question [...] Description 11/08/2024 1:45 PM EDT Office Visit [facility] [place] Eye [facility] LW [address] [place] [address] Debra Nielson MD, PhD [address] [place] [address] [email or web address] documented as of this encounter Visit Diagnoses Not on filedocumented in this encounter Care Teams Importer Or Exporter Relationship Specialty Start Date End Date Andre Jarvis DO [address] [place] [address] PCP - General 08/17/13 08/22/24 Felice Mtz MD [address] [place] [address] PCP - General Internal Medicine 08/23/24 Briseida Wang PA [address] [place] [address] [email or web address] Physician Acid Correction Hand Transplant Hepatology 01/23/21 Shaun Escobedo DO [facility] [place] [address] Family Medicine 08/27/22 documented as of this encounter Additional Source Comments The information contained in this document represents components of the legal health record. It is not the complete legal health record.[facility]
--- OUTSIDE RECORDS SUMMARY | 2024-11-07 13:59 | XMS_ITS | Encounter Summary ---
Author Organization [facility] Address [address] [facility] [address] [place] [address] Phone Care Team Providers Care Sewer Contractor Name Role Phone Shaun Escobedo DO Unavailable [phone] Felice Mtz MD Primary Care Provider [phone] Encounter Details Date Type Department Care Team (Late st Contact Info) Description 08/23/2024 Ophth Exam [facility] Emergency Department [address] [place] [address] Karime Soriano MD, JERAD [address] [place] [address] [email or web address] Social History Tobacco Use Types Packs/Day [...] 8:40 AM EDT Cara Ramirez RN * [place] Suicide Severity Rating Scale (Screener/Recent Self-Report) Question [...] Description 11/08/2024 1:45 PM EDT Office Visit [facility] [place] [facility] Eye [facility]astics LW [address] [place] [address] Debra Nielson MD, PhD [address] [place] [address] [email or web address] documented as of this encounter Visit Diagnoses Not on filedocumented in this encounter Care Teams Sewer Contractor Relationship Specialty Start Date End Date Felice Mtz MD [address] [place] [address] PCP - General Internal Medicine 08/23/24 Shaun Escobedo DO Family Medicine 08/27/22 documented as of this encounter Additional Source Comments The information contained in this document represents components of the legal health record. It is not the complete legal health record.[facility]
--- OUTSIDE RECORDS SUMMARY | 2024-11-07 13:59 | XMS_ITS | Patient Health Record ---
Author Organization [facility] Address [address] [place] [address] Care Team Providers Care Authorizer Name Role Phone Bibi SINGH, Felice Primary Care Provider Andre Alexandra [phone] Allergies Allergen (clinical drug ingredient) Drug/Non Drug [...] Problem Status W/U Status Risk Notes Problem 710557313 Encounter for screening for malignant neoplasm of colon (Z12.11) Active confirmed Problem Diarrhea (42426554) Diarrhea (R19.7) Active confirmed Problem 91107998 Secondary esophageal varices without bleeding (I85.10) Active confirmed Problem 13277036 Other cirrhosis of liver (K74.69) Active confirmed Problem Portal hypertension (79523137) Portal hypertension (K76.6) Active confirmed Problem Nausea (458871680) Nausea (R11.0) Active confirmed Problem Iron deficiency anemia (10911135) Iron deficiency anemia (D50.9) Active confirmed Problem Abnormal blood test (527387164181100) Abnormal celiac antibody panel (R89.4) Active confirmed Problem 318863310 Elevated liver enzymes (R74.8) Active confirmed Problem 924763768 Fatty liver (K76.0) Active confirmed Problem 042357806 Gastroesophageal reflux disease, esophagitis presence not specified (K21.9) Active confirmed Problem Anemia (532994636) Anemia (D64.9) Active confirmed Problem Esophageal varices (13992436) Esophageal varices (I85.00) Active confirmed Problem 94069711 Diarrhea, unspecified type (R19.7) Active confirmed Problem Ascites (981632615) Ascites (R18.8) Active confirmed Problem Diverticulosis of colon (997064893) Diverticulosis of colon (K57.30) Active confirmed Problem 856420236 Thrombocytopenia (D69.6) Active confirmed Problem Generalized abdominal pain (464552201) Abdominal pain, acute, generalized (R10.84) Active confirmed Problem Hepatic encephalopathy (67934435) Hepatic encephalopathy (K76.82) Active confirmed Vital Signs Temperature 96.9 degrees Fahrenheit 08/03/2024 Blood pressure diastolic 01 mm Hg 08/03/2024 Height 63 in 08/03/2024 Blood pressure systolic 001 mm Hg 08/03/2024 Weight 154 lbs 08/03/2024 BMI 27.28 kg/m2 08/03/2024 Encounters Encounter Location Date Provider Diagnosis [facility] [address] [place] [address] 08/03/2024 Andre Irwin Other cirrhosis of l [...] recent hospitalization and close follow-up with the [facility] in [place] I do not think I need to [...] will continue to be followed closely in [place] but I did advise her to certainly call me while she is here or in [place] if there are any problems or questions that I can be of assistance with. It sounds like she will definitely be listed for transplant when she goes back to [place] in few months. We did review the [...] recent hospitalization and close follow-up with the [facility] in [place] I do not think I need to [...] will continue to be followed closely in [place] but I did advise her to certainly call me while she is here or in [place] if there are any problems or questions that I can be of assistance with. It sounds like she will definitely be listed for transplant when she goes back to [place] in few months. We did review the [...] recent hospitalization and close follow-up with the [facility] in [place] I do not think I need to [...] will continue to be followed closely in [place] but I did advise her to certainly call me while she is here or in [place] if there are any problems or questions that I can be of assistance with. It sounds like she will definitely be listed for transplant when she goes back to [place] in few months. We did review the [...] recent hospitalization and close follow-up with the [facility] in [place] I do not think I need to [...] will continue to be followed closely in [place] but I did advise her to certainly call me while she is here or in [place] if there are any problems or questions that I can be of assistance with. It sounds like she will definitely be listed for transplant when she goes back to [place] in few months. We did review the [...] recent hospitalization and close follow-up with the [facility] in [place] I do not think I need to [...] will continue to be followed closely in [place] but I did advise her to certainly call me while she is here or in [place] if there are any problems or questions that I can be of assistance with. It sounds like she will definitely be listed for transplant when she goes back to [place] in few months. We did review the [...] recent hospitalization and close follow-up with the [facility] in [place] I do not think I need to [...] will continue to be followed closely in [place] but I did advise her to certainly call me while she is here or in [place] if there are any problems or questions that I can be of assistance with. It sounds like she will definitely be listed for transplant when she goes back to [place] in few months. We did review the [...] again for allowing me to participate in Gewndolyn's care. I shall continue to keep you [...] recent hospitalization and close follow-up with the [facility] in [place] I do not think I need to [...] will continue to be followed closely in [place] but I did advise her to certainly call me while she is here or in [place] if there are any problems or questions that I can be of assistance with. It sounds like she will definitely be listed for transplant when she goes back to [place] in few months. We did review the [...] Provider Name:Andre Irwin , 08/03/2025 01:00:00 PM, [address] [place] [address], [address], [place], [address], Insurance Providers Payer Name Payer Address Payer Phone Subscriber Number Group Number Insured Name Patient Relationship to Insured Coverage Start Date Coverage End Date MEDICARE OF [place] [address] [place] [address] [id number] GWENDOLYN BLANTON Self - patient is the insured MEDEX ATTN CLAIMS [address] [place] [address] [id number] GWENDOLYN BLANTON Self - patient is the insured Medical (General) History Medical History History ICD Code Kidney stones Denies [place],CVA,Lung disease,renal diseas Neg screening colonoscopy 12/2007 Dr. Aung vitale in [place] Anxiety Hyperlipidemia GERD--EGD in 12/2018 reveale d a mod-sized HH, but was neg for Cunningham's/esophagitis--other findings as below Elevated LFT's--probable fat ty liver--neg. w/u in 10/2018--EGD in 12/2018 revealed esophageal varices and portal gastropathy--started on Nadolol--referral made to [facility] Liver Transplant unit in 12/2018 Thrombocytopenia with platelet count of 80,000 in October 2018 Neg. 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 A liver biopsy in January 2019 confirmed this diagnosis. She is being evaluated both at [facility] liver transplant clinic(where they do only live donor transplants) and at the [facility] in [place]. She will be listed at both facilities. She describes her MELD score is 7 as of the 11/2019 OV. As of the 10/2021 office visit she advised me that she is no longer being followed at [facility] but is now being followed at [facility] liver transplant [facility], and also continues to be followed at the [facility]. 2020 EGD at [place] with bandin g of esophageal varices x [...] colitis Upper endoscopy in July at the [facility] in [place]-describes grade 2 varices in the lower esophagus--a single esophageal varix was banded; also noted was portal gastropathy but no gastric varices MELD score was only 8 at the [facility] in July of 2023 IDDM Ascites and Portal vein thrombosis in 2024 in [place]-s/p paracentesis S/P Iron Infusions at [facility] [place] Surgical History Surgery Date(Month/Year) Basal cell and squamous cell skin cancers on chest wall, face, forehead, side of neck, behind right knee, behind ear Appendectomy Back surgery x [phone] MA[facility] Hospitalization History Reason Date(Month/Year) in [place] and had ascites
--- OUTSIDE RECORDS SUMMARY | 2024-11-07 13:59 | XMS_ITS | Encounter Summary ---
Author Organization [facility] Address [address] [place] [address] [place] [address] Phone Care Team Providers Care Oil Driller Name Role Phone Andre Jarvis DO Primary Care Provider Briseida Wang Unavailable Shaun Escobedo DO Unavailable [phone] Felice Mtz MD Primary Care Provider [phone] Encounter Details Date Type Department Care Team (Late st Contact Info) Description 02/24/2018 Procedure Pass [facility] PERIOP DEPT [address] [place] [address] Social History Tobacco Use Types Packs/Day Years [...] Visit [facility] LW [address] [place] [address] Debra Nielson MD, PhD [address] [place] [address] [email or web address] documented as of this encounter Visit Diagnoses Not on filedocumented in this encounter Care Teams Oil Driller Relationship Specialty Start Date End Date Andre Jarvis DO [address] [place] [address] PCP - General 08/17/13 08/22/24 Felice Mtz MD [address] [place] [address] PCP - General Internal Medicine 08/23/24 Briseida Wang PA [address] [place] [address] [email or web address] Physician Oil Expeller Operator Transplant Hepatology 01/23/21 Shaun Escobedo DO [address] [place] [address] Family Medicine 08/27/22 documented as of this encounter Additional Source Comments The information contained in this document represents components of the legal health record. It is not the complete legal health record.[facility]
[2024-11-07 14:04] LABS: INTERNATIONAL NORM RATIO 1.3 (0.9-1.1); Prothrombin Time 15.1 SEC (10.9-12.4)
[2024-11-07 14:07] LABS: NRBC Abs Auto 0.000 X10*3/uL (0.0-0.012); NRBC Pct Auto 0.0 /100WBC (0.0-0.2); PLT CLUMP 1; SCAN SMEAR FLAG 1
[2024-11-07 14:08] LABS: Ammonia 29 umol/L (13-55)
[2024-11-07 14:09] LABS: Hematocrit 38.4 % (37.0-47.0); Hemoglobin 13.1 g/dl (12.0-16.0); Imm Gran Abs Auto 0.02 X10*3/uL (0.00-0.03); Imm Gran Pct Auto 0.5 % (0.0-0.4); Lymphocytes Absolute Auto 0.7 X10*3/uL (1.2-4.9); Mean Corpuscular HGB Conc 34.1 g/dl (31.0-35.0); Mean Corpuscular Hemoglobin 29.8 pg (27.0-33.0); Mean Corpuscular Volume 87.5 fL (80.0-98.0); Red Blood Count 4.39 X10*6/uL (4.20-5.50)
[2024-11-07 14:15] LABS: Alanine Aminotransferase 17 U/L (0-31); Albumin Level 3.7 g/dL (3.5-5.0); Alkaline Phosphatase 103 U/L (39-117); Anion Gap 12 (12-20); Aspartate Amino Transferase 42 U/L (5-31); Blood Urea Nitrogen 9 mg/dL (9-16); Calcium 8.8 mg/dL (8.4-10.2); Carbon Dioxide 27 mmol/L (22-29); Chloride 106 mmol/L (96-108); Creatinine Clr Calc Pharmacy 61.1; Estimated Glomerular Filt Rate > 60; Lipase 23 U/L (8-78); Potassium 3.6 mmol/L (3.3-5.1); Sodium 141 mmol/L (135-145); Total Protein 6.7 g/dL (6.5-8.0)
[2024-11-07 14:17] LABS: Platelet Count 67 X10*3/uL (160-400)
[2024-11-07 14:18] LABS: MANUAL DIFF FLAG NO; White Blood Count 4.3 X10*3/uL (4.8-10.8)
--- NOTE | 2024-11-07 14:18 | PC.NURSE ---
pt presents via EMS from home w/ c/o worsening lower abdominal pain since 0800 today. Pt has a history of liver failure and is in the process of being added to the transplant list with the [facility] in [place] where she lives 6mo out of the year. Pt sts that she began to feeling increasing pain (8/10) nausea, with subsequent vomiting and diarrhea with increasing abdominal distention beginning on the right side of the lower abdomen, that then began appearing on the left. Pt is tender to palpation across lower abdomen. VSS on arrival 20G IV access was obtained in -, in addition to labs including ammonia level- pt does not use lactulose at baseline pt denies CP, SOB/KELIN, no fevers, no recent sick contacts, no new foods. Pt have hx of ascites that required drainage in [place] which removed apprx 8lbs of fluid from the pt. Pt to have CT abdomen pelvis plan of care ongoing
[2024-11-07] MEDS: iohexoL 350 MG/ML 100 ML INFUS..BTL IV (14:31)
--- NOTE | 2024-11-07 14:43 | PC.NURSE ---
analgesia requested from MD for 09/26 abdominal pain
[2024-11-07 15:10] VITALS: RESP 16
[2024-11-07 15:11] VITALS: BP 113/63; PULSE 71; RESP 16; TEMP 37; O2SAT 95
[2024-11-07 16:15] VITALS: BP 113/63; PULSE 71; RESP 16; TEMP 37; O2SAT 95
== END 2024-11-07 16:28 | disposition home or self-care (01) ==
PROVIDERS: Emergency Provider Emergency Medicine; PCP Internal Medicine
DX: K74.60 Unspecified cirrhosis of liver (principal); R14.0 Abdominal distension (gaseous); R10.2 Pelvic and perineal pain; Z79.899 Other long term (current) drug therapy
CPT/HCPCS: 36415; 74177; 80053; 82140; 82248; 83690; 85025; 85610; 96374; 99284; 99285; J2270; Q9967

== ENCOUNTER → 2024-11-07 13:41 | Outpatient (BNV) | payer MEDICARE, SELFPAY | PROVIDERS: Emergency Provider Emergency Medicine; PCP Internal Medicine; Visit Provider Radiology Diagnostic Radiology | DX: K74.60 Unspecified cirrhosis of liver (principal); R18.8 Other ascites; R16.1 Splenomegaly, not elsewhere classified; K76.6 Portal hypertension | CPT/HCPCS: 74177 ==

== ENCOUNTER 2024-12-03 10:44 | Outpatient (REF) | payer MEDICARE, SELFPAY ==
--- NOTE | ~2024-12-03 | US_ITS ---
EXAMINATION: US ABDOMEN LIMITED CLINICAL INFORMATION: Assess for ascites, abdominal distention.. COMPARISON: Correlation made with CT abdomen and pelvis 11/07/2024. TECHNIQUE: Real-time imaging of the all 4 quadrants of the abdomen for ascites check. FINDINGS: Moderate to large volume ascites present in all 4 quadrants of the abdomen. US/US abdomen limited IMPRESSION: Moderate to large volume ascites present in all 4 quadrants of the abdomen. Electronically signed by: Abel Gonzalez MD 12/03/2024 11:54 AM EDT
--- OUTSIDE RECORDS SUMMARY | 2024-12-03 13:12 | XMS_ITS | Clinical Summary ---
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 Procedure Name Priority Date/Time Associated Diagnosis Comments HEPATITIS C ANTIBODY W/REFLEX TO HCV RNA, QUANTITATIVE PCR Routine 02/01/2019 12:11 PM EST Encounter for pre-transplant evaluation for liver transplant from Last 3 Months or Most Recently Relevant to Health Maintenance Results * Due to [place] [employer] law, this organization might not be sharing negative HIV tests. * Hepatitis C Antibody w/Reflex to PCR (02/01/2019 12:11 PM EST) Hepatitis C Antibody NON-REACT JANA NON-REACT JANA 02/02/2019 2:30 AM EST [facility] Signal To Cut-Off 0.01 <1.00 02/02/2019 2:30 AM EST [facility] Comment: HCV antibody was non-reactive. There is no laboratory evidence of HCV infection. In most cases, no further action is required. However, if recent HCV exposure is suspected, a test for HCV RNA (test code 26889) is suggested. For additional information please refer to http://education.[employer]/faq/BKI50q1 (This link is being provided for informational/ educational purposes only.) Blood specimen (specimen) Structure of peripheral vein / Unknown Venipuncture / Unknown 02/01/2019 12:11 PM EST 02/01/2019 12:27 PM EST Narrative [facility] - 02/02/2019 2:30 AM EST [facility] Received Date:[id number] us Joo Raymundo MD LAB BLOOD ORDERABLES Final Re sult [facility] [address], [place] [address], [place] [phone] [facility] [address], [place] [address], [place] [phone] from Last 3 Months or Most Recently Relevant to Health Maintenance Insurance MEDICARE [facility] SUPP MEDICARE [facility] SUPP Advance Directives Documents on File Type Date Recorded Patient [employer] [facility] Health Care Proxy 02/16/2019 12:20 PM Care Teams Factory Representative Relationship Specialty Start Date End Date Andre Jarvis [address] [place] [id number] PCP - General Internal Medicine 01/19/19
[2024-12-03 14:00] LABS: Anion Gap 9 (12-20); Blood Urea Nitrogen 8 mg/dL (9-16); Carbon Dioxide 29 mmol/L (22-29); Chloride 107 mmol/L (96-108); Estimated Glomerular Filt Rate > 60; Potassium 3.4 mmol/L (3.3-5.1); Sodium 142 mmol/L (135-145)
== END 2024-12-03 10:45 | disposition home or self-care (01) ==
LOC: HO.US 10:44
PROVIDERS: PCP Ophthalmology; Visit Provider Internal Medicine
DX: R18.8 Other ascites (principal); K74.60 Unspecified cirrhosis of liver; R14.0 Abdominal distension (gaseous)
CPT/HCPCS: 36415; 76705; 80051; 82565; 84520

== ENCOUNTER → 2024-12-03 11:32 | Outpatient (BNV) | payer MEDICARE, SELFPAY | PROVIDERS: PCP Ophthalmology; Visit Provider Radiology Diagnostic Radiology | DX: R18.8 Other ascites (principal) | CPT/HCPCS: 76705 ==

== ENCOUNTER 2024-12-09 11:27 | Day surgery (SDC) | payer MEDICARE, SELFPAY ==
--- NOTE | 2024-12-08 11:16 | PC.NURSE ---
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 Was on Eliquis prior to this. Dr Turcios was okay if pt takes dose tonight and wantd to check INR prior to paracentesis, which is scheuled 12/09. Call pt went over the pre-procedure instruction about this and also arrival time 1130 on 2nd floor in [facility]. PT's is going to drive her to and from hospital.
--- NOTE | ~2024-12-09 | US_ITS ---
EXAMINATION: US GUIDED PARACENTESIS CLINICAL INFORMATION: Ascites COMPARISON: Previous abdominal ultrasound most recent November [address] of the abdomen and pelvis October 2024 TECHNIQUE: Procedure risk and benefits including bleeding, infection and low blood pressure were discussed with the patient and informed consent was obtained. The right lower quadrant was prepped and draped in the usual sterile fashion. The skin and soft tissues were anesthetized with 1% lidocaine plain. Using ultrasound guidance and a 4 [place] Yueh needle, access to the ascitic fluid was obtained. 4.1 L of clear yellow fluid was removed. Diagnostic specimen was sent. FINDINGS: There is a moderate to large amount of ascites. US/US paracentesis abd w/image IMPRESSION: Ultrasound-guided paracentesis. Electronically signed by: Shanice Turcios MD 12/09/2024 02:32 PM EDT
[2024-12-09 11:50] LABS: MANUAL DIFF FLAG NO
[2024-12-09 11:58] LABS: INTERNATIONAL NORM RATIO 2.0 (0.9-1.1); NRBC Abs Auto 0.000 X10*3/uL (0.0-0.012); NRBC Pct Auto 0.0 /100WBC (0.0-0.2); PLT CLUMP 1; Prothrombin Time 23.1 SEC (10.9-12.4); SCAN SMEAR FLAG 1
[2024-12-09 12:00] LABS: Hematocrit 42.1 % (37.0-47.0); Hemoglobin 14.0 g/dl (12.0-16.0); Imm Gran Abs Auto 0.01 X10*3/uL (0.00-0.03); Imm Gran Pct Auto 0.2 % (0.0-0.4); Lymphocytes Absolute Auto 1.5 X10*3/uL (1.2-4.9); Mean Corpuscular HGB Conc 33.3 g/dl (31.0-35.0); Mean Corpuscular Hemoglobin 29.4 pg (27.0-33.0); Mean Corpuscular Volume 88.4 fL (80.0-98.0); Partial Thromboplastin Time 31.6 SEC (26.7-34.1); Red Blood Count 4.76 X10*6/uL (4.20-5.50)
[2024-12-09 12:03] LABS: Platelet Count 87 X10*3/uL (160-400); White Blood Count 6.2 X10*3/uL (4.8-10.8)
[2024-12-09 12:07] LABS: Alanine Aminotransferase 17 U/L (0-31); Albumin Level 3.6 g/dL (3.5-5.0); Alkaline Phosphatase 98 U/L (39-117); Anion Gap 9 (12-20); Aspartate Amino Transferase 49 U/L (5-31); Blood Urea Nitrogen 6 mg/dL (9-16); Calcium 8.5 mg/dL (8.4-10.2); Carbon Dioxide 28 mmol/L (22-29); Chloride 108 mmol/L (96-108); Estimated Glomerular Filt Rate > 60; Potassium 3.4 mmol/L (3.3-5.1); Sodium 142 mmol/L (135-145); Total Protein 6.9 g/dL (6.5-8.0)
[2024-12-09 12:33] LABS: Glucose, Whole Blood 130 mg/dL (60-115)
[2024-12-09 12:40] VITALS: BP 124/63; PULSE 65; RESP 18; TEMP 36.7; O2SAT 96
--- NOTE | 2024-12-09 12:40 | PC.NURSE ---
Dr. Ayoub stated okay to proceed with today's INR result of 2.0. Also stated albumin dose will be determined after paracentesis.
[2024-12-09 13:45] VITALS: BP 91/48; PULSE 72; RESP 16; TEMP 36.6; O2SAT 94
[2024-12-09] MEDS: Lidocaine HCl 1 % MPF 5 ML VIAL SUBCUT (13:51)
[2024-12-09 14:00] VITALS: BP 95/53; PULSE 72; RESP 16; TEMP 36.6; O2SAT 94
[2024-12-09 14:13] LABS: MN% 90.4 %; PMN% 9.6 %; WBC Peritoneal Fluid 0.245 X10*3/uL
[2024-12-09 14:15] VITALS: BP 94/47; PULSE 70; RESP 16; TEMP 36.6; O2SAT 94
[2024-12-09 14:30] VITALS: BP 97/54; PULSE 71; RESP 16; TEMP 36.6; O2SAT 94
[2024-12-09 14:53] LABS: BF Shift QC OK YES; Lymphocyte Peritoneal Fl 72 %; Monocytes Peritoneal Fl 4 %; Neutrophils Peritoneal Fluid 9 %; Other Peritioneal Fl 14 %
[2024-12-10 07:08] LABS: Albumin Peritoneal Fluid 0.7
== END 2024-12-09 14:53 | disposition home or self-care (01) ==
PROVIDERS: Radiology Diagnostic Radiology; PCP Ophthalmology; Visit Provider Internal Medicine
DX: R18.8 Other ascites (principal); K74.69 Other cirrhosis of liver; K76.82 Hepatic encephalopathy; I85.10 Secondary esophageal varices without bleeding; D69.6 Thrombocytopenia, unspecified; K76.0 Fatty (change of) liver, not elsewhere classified; D50.9 Iron deficiency anemia, unspecified; K21.9 Gastro-esophageal reflux disease without esophagitis; J43.9 Emphysema, unspecified; E11.9 Type 2 diabetes mellitus without complications; Z79.4 Long term (current) use of insulin; Z79.01 Long term (current) use of anticoagulants; Z79.899 Other long term (current) drug therapy; Z98.890 Other specified postprocedural states; Z85.828 Personal history of other malignant neoplasm of skin; Z87.891 Personal history of nicotine dependence
CPT/HCPCS: 36415; 49083; 80048; 80076; 82042; 82947; 85025; 85610; 85730; 87070; 87073; 87205; 88112; 89051; J2003

== ENCOUNTER → 2024-12-09 11:30 | Outpatient (BNV) | payer MEDICARE, SELFPAY | PROVIDERS: PCP Ophthalmology; Visit Provider Radiology Diagnostic Radiology | DX: K74.60 Unspecified cirrhosis of liver (principal); R18.8 Other ascites | CPT/HCPCS: 49083 ==